=== PATIENT | female | born 1945 | race Caucasian/White ===

== ENCOUNTER 2017-07-20 08:16 | Outpatient (RCR) | payer MEDICARE, MEDICAID, SELFPAY ==
[2017-07-09 01:22] VITALS: BP 152/85; PULSE 69; RESP 18; TEMP 36; BMI 29.9
[2017-07-20 08:13] VITALS: BP 148/67; PULSE 58; RESP 18; TEMP 35.9; BMI 29.9
--- NOTE | 2017-07-20 08:58 | PCM.WC.PN ---
(1) Nonhealing nonsurgical wound Status: Acute Current Visit: Yes Code(s): T14.8XXA - Other injury of unspecified body region, initial encounter (2) Hypertension Status: Chronic Current Visit: Yes Code(s): I10 - Essential (primary) hypertension (3) Tobacco abuse disorder Status: Chronic Current Visit: Yes Code(s): Z72.0 - Tobacco use Type of Wound Date of Service: 07/20/17 Chief Complaint: Follow-up on open ulcer chest History of Wound: 72-year-old white female that approximately mid March scratched her chest with [place]lasses [place]. Has been treating her on her own has developed a huge ulcer. Was seen by her primary doctor and placed on 2 different antibiotics at 2 different times doxycycline and clindamycin was also treated with Lotrimin lotion. The ulcer just get worse and her doctor then referred her to the wound center. They will obtain cultures of the ulcer and start treatment. Progress of Wound: The wound today is healed patient will be discharged from the wound center. - Physical Exam Vital Signs Temp Pulse Resp BP 96.6 F L 58 L 18 148/67 H 07/20/17 08:13 07/20/17 08:13 07/20/17 08:13 07/20/17 08:13 General: Oriented x3, Cooperative, Well developed HEENT: Atraumatic, PERRLA Oral: Moist Mucosa Neck: Supple, No JVD Lungs: Clear to auscultation, Normal air movement Cardiovascular: Regular rate, Regular Rhythm Abdomen: Bowel Sounds Present, Soft, Non Tender, No Hepato-splenomegaly Extremities: No clubbing, No edema Skin: Ulcer/ Wound - Nonhealing ulcer chest lower sternum Wound Measurements and Assessment - Nurse 1 - General Ulcer Measurement Start: 07/20/17 08:12 Freq: Status: Active Protocol: Activity Type Activity Date Activity User E-Sign Co-Sign Detail Recorded Client Recorded Date Recorded By Document 07/20/17 08:13 DV [id number] 07/20/17 08:16 DV 07/20/17 08:13 Wound Center Nurse 1 [Ulcer Assessment Protocol: WC.WD.LOC] #1- LOWER STERNUM -Combined with other wound No -Current Size (cm) - Length 0 -Current Size (cm) - Width 0 -Current Size (cm) - Depth 0 -Total Square Cm 0 -Photo Taken Yes -Epithelialization Large 67-100% -Tunneling No -Undermining/Tunneling No -Circular Undermining No -Texture (Evie-wound Skin Appearance) No Abnormality Assessed -Moisture (Evie-wound Skin Appearance No Abnormality ) Assessed -Color (Evie-wound Skin Appearance) No Abnormality Assessed -Temperature (Evie-wound Skin No Abnormality Appearance) (Pt Warm) -Tenderness on Palpation (Evie-wound No Skin Appearance) -Foul Odor after Cleansing No WC - Nurse 2 - General Ulcer CM Notes Start: 07/20/17 08:12 Freq: Status: Active Protocol: Activity Type Activity Date Activity User E-Sign Co-Sign Detail Recorded Client Recorded Date Recorded By Document 07/20/17 08:30 MW [id number] 07/20/17 08:32 MW 07/20/17 08:30 Pain Scale: 0-10 Numeric [Pain] -Is Patient Pain Free? Yes Musculoskeletal: No Tenderness to Palpation of Joints or Extremities Lymphatic: No Cervical, Supraclavicular, or Inguinal Adenopathy Neurological: Cranial nerves II-XII grossly intact, Neuro grossly intact Psych/Mental Status: Normal Affect, Appropriate Debridement Note Post-Debridement Measurements/Treatment WC - Nurse 2 - General Ulcer CM Notes Start: 07/20/17 08:12 Freq: Status: Active Protocol: Activity Type Activity Date Activity User E-Sign Co-Sign Detail Recorded Client Recorded Date Recorded By Document 07/20/17 08:30 MW [id number] 07/20/17 08:32 MW 07/20/17 08:30 Pain Scale: 0-10 Numeric Is Patient Pain Free? Yes No debridement was completed today Assessment/Plan Active Problems Tobacco abuse disorder (Chronic) Nonhealing nonsurgical wound (Acute) Hypertension (Chronic) Assessment: Infected ulcer resolved. Nonhealing chest ulcer resolved. Hypertension. Tobacco abuser Plan: Discharge from the wound center follow-up as needed
--- NOTE | 2017-07-20 09:01 | PN.PCM_ITS ---
(1) Nonhealing nonsurgical wound Status: Acute Current Visit: Yes Code(s): T14.8XXA - Other injury of unspecified body region, initial encounter (2) Hypertension Status: Chronic Current Visit: Yes Code(s): I10 - Essential (primary) hypertension (3) Tobacco abuse disorder Status: Chronic Current Visit: Yes Code(s): Z72.0 - Tobacco use Type of Wound Date of Service: 07/20/17 Chief Complaint: Follow-up on open ulcer chest History of Wound: 72-year-old white female that approximately mid March scratched her chest with [place]. Has been treating her on her own has developed a huge ulcer. Was seen by her primary doctor and placed on 2 different antibiotics at 2 different times doxycycline and clindamycin was also treated with Lotrimin lotion. The ulcer just get worse and her doctor then referred her to the wound center. They will obtain cultures of the ulcer and start treatment. Progress of Wound: The wound today is healed patient will be discharged from the wound center. - Physical Exam Vital Signs Temp Pulse Resp BP 96.6 F L 58 L 18 148/67 H 07/20/17 08:13 07/20/17 08:13 07/20/17 08:13 07/20/17 08:13 General: Oriented x3, Cooperative, Well developed HEENT: Atraumatic, PERRLA Oral: Moist Mucosa Neck: Supple, No JVD Lungs: Clear to auscultation, Normal air movement Cardiovascular: Regular rate, Regular Rhythm Abdomen: Bowel Sounds Present, Soft, Non Tender, No Hepato-splenomegaly Extremities: No clubbing, No edema Skin: Ulcer/ Wound - Nonhealing ulcer chest lower sternum Wound Measurements and Assessment - Nurse 1 - General Ulcer Measurement Start: 07/20/17 08:12 Freq: Status: Active Protocol: Activity Type Activity Date Activity User E-Sign Co-Sign Detail Recorded Client Recorded Date Recorded By Document 07/20/17 08:13 DV [id number] 07/20/17 08:16 DV 07/20/17 08:13 Wound Center Nurse 1 [Ulcer Assessment Protocol: WC.WD.LOC] #1- LOWER STERNUM -Combined with other wound No -Current Size (cm) - Length 0 -Current Size (cm) - Width 0 -Current Size (cm) - Depth 0 -Total Square Cm 0 -Photo Taken Yes -Epithelialization Large 67-100% -Tunneling No -Undermining/Tunneling No -Circular Undermining No -Texture (Evie-wound Skin Appearance) No Abnormality Assessed -Moisture (Evie-wound Skin Appearance No Abnormality ) Assessed -Color (Evie-wound Skin Appearance) No Abnormality Assessed -Temperature (Evie-wound Skin No Abnormality Appearance) (Pt Warm) -Tenderness on Palpation (Evie-wound No Skin Appearance) -Foul Odor after Cleansing No WC - Nurse 2 - General Ulcer CM Notes Start: 07/20/17 08:12 Freq: Status: Active Protocol: Activity Type Activity Date Activity User E-Sign Co-Sign Detail Recorded Client Recorded Date Recorded By Document 07/20/17 08:30 MW [id number] 07/20/17 08:32 MW 07/20/17 08:30 Pain Scale: 0-10 Numeric [Pain] -Is Patient Pain Free? Yes Musculoskeletal: No Tenderness to Palpation of Joints or Extremities Lymphatic: No Cervical, Supraclavicular, or Inguinal Adenopathy Neurological: Cranial nerves II-XII grossly intact, Neuro grossly intact Psych/Mental Status: Normal Affect, Appropriate Debridement Note Post-Debridement Measurements/Treatment WC - Nurse 2 - General Ulcer CM Notes Start: 07/20/17 08:12 Freq: Status: Active Protocol: Activity Type Activity Date Activity User E-Sign Co-Sign Detail Recorded Client Recorded Date Recorded By Document 07/20/17 08:30 MW [id number] 07/20/17 08:32 MW 07/20/17 08:30 Pain Scale: 0-10 Numeric Is Patient Pain Free? Yes No debridement was completed today Assessment/Plan Active Problems Tobacco abuse disorder (Chronic) Nonhealing nonsurgical wound (Acute) Hypertension (Chronic) Assessment: Infected ulcer resolved. Nonhealing chest ulcer resolved. Hypertension. Tobacco abuser Plan: Discharge from the wound center follow-up as needed
== END 2017-08-08 23:59 ==
LOC: WC 08:16
PROVIDERS: Family Provider Family Medicine; PCP Family Medicine; Visit Provider Nurse Practitioner
DX: Z09 Encounter for follow-up examination after completed treatment for conditions other than malignant neoplasm (principal); Z72.0 Tobacco use
CPT/HCPCS: 99212; G0463

== ENCOUNTER 2017-08-25 14:20 | Emergency (ER) | payer MEDICARE, MEDICAID, SELFPAY ==
[2017-08-25] VITALS (7 sets, daily range): BP systolic 171–216; BP diastolic 79–174; PULSE 61–79; RESP 14–22; TEMP 36.5; O2SAT 96–98; BMI 30.9
--- NOTE | 2017-08-25 14:26 | EKG12_ITS ---
Test Reason : CVA Blood Pressure : / mmHG Vent. Rate : 070 BPM Atrial Rate : 070 BPM P-R Int : 132 ms QRS Dur : 160 ms QT Int : 466 ms P-R-T Axes : 051 208 -08 degrees QTc Int : 503 ms Sinus rhythm with Premature atrial complexes Left bundle branch block Abnormal ECG Confirmed by INNA HANNAH ([id number]), editor in chief newspaper DENNY DECKER ([id number]) on 08/30/2017 2:42:10 PM Referred By: Confirmed By:INNA HANNAH
--- NOTE | 2017-08-25 14:26 | CT_ITS ---
STUDY: CTA NECK WITH CONTRAST REASON FOR EXAM: Female, 72 years old. RT SIDED WEAKNESS, APHASIC, PREV CVA 20 YRS AGO, AVM MALFORMATION REPAIR, HX-SZ,HTN, CABG, EMPHYSEMA RADIATION DOSAGE (If Supplied By Facility): CTDIvol = ( 23.33 ) mGy, DLP = ( 781.56 ) mGycm TECHNIQUE: CT angiography with multi-detector data acquisition was performed from the aortic arch to the skull base following intravenous administration of 100 ml of Isovue 370 contrast. MIP images were reconstructed from the axial data set. Post-processing of the angiographic images was performed, with multiplanar reformation and 3D reconstruction. COMPARISON: CT of the same day. FINDINGS: Multiple median sternotomy wires are noted consistent for cardiac surgery. AORTIC ARCH: There is atherosclerotic calcific plaque formation of the aortic arch and great vessels arising from the aortic arch, without a hemodynamically significant stenosis. There is a normal origin of the brachiocephalic, left common carotid, and left subclavian arteries. Normal origins of the brachiocephalic, left common carotid, and left subclavian arteries. RIGHT CAROTID ARTERIES: Normal right common carotid artery (CCA). Normal right common carotid bulb. There is mild atherosclerotic plaque formation of the origin of the right internal carotid artery with less than 50% cross sectional diameter stenosis. Normal visualized cervical portion of the right internal carotid artery. Normal origin of the right external carotid artery (ECA). LEFT CAROTID ARTERIES: Normal left common carotid artery (CCA). Normal left common carotid bulb. 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 Normal visualized cervical portion of the left internal carotid artery. Normal origin of the left external carotid artery (ECA). VERTEBRAL ARTERIES: There is enhancement within the bilateral vertebral arteries with a small right vertebral artery, and a dominant left vertebral artery. The most distal portion of the right vertebral artery isn't visualized and may represent severe stenosis or occlusion. 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 There is mild atherosclerotic plaque formation of the origin of the right internal carotid artery with less than 50% cross sectional diameter stenosis. The most distal portion of the right vertebral artery isn't visualized and may represent severe stenosis or occlusion. Electronically Signed: Sid Betancourt MD at 16:30 EST , Service support ,
--- NOTE | 2017-08-25 14:26 | CT_ITS ---
STUDY: CTA OF THE BRAIN REASON FOR EXAM: Female, 72 years old. RT SIDED WEAKNESS, APHASIC, PREV CVA 20 YRS AGO, AVM MALFORMATION REPAIR, HX-SZ,HTN, CABG, EMPHYSEMA RADIATION DOSAGE (If Supplied By Facility): CTDIvol = ( 23.33 ) mGy, DLP = ( 781.56 ) mGycm TECHNIQUE: CT angiography was performed with a multi-detector CT scanner. Data acquisition was obtained from the skull base through the vertex following intravenous administration of 100 ml of Isovue 370. MIP images were reconstructed from the axial data set. Post-processing of the angiographic images was performed, with multiplanar reformation and 3D reconstruction. Individualized dose optimization techniques were used for this CT. COMPARISON: CT Brain Aug 25 2017 2:25pm FINDINGS: Normal bilateral petrous carotid arteries. There is calcified plaque formation of the right cavernous carotid artery, without a cross-sectional luminal stenosis. There is calcified plaque formation of the left cavernous carotid artery, and occlusion of the left ICA. The left cavernous carotid artery is filling via the [place] of [place]. Normal right A1 segments of the anterior cerebral artery. Normal left A1 segments of the anterior cerebral artery. Normal intact anterior communicating artery (ACOM). Normal bilateral A2 segments of the anterior cerebral arteries. Normal right M1 and M2 segments of the middle cerebral arteries, with a normal M1 bifurcation. Normal left M1 and M2 segments of the middle cerebral arteries, with a normal M1 bifurcation. There is non-visualization of the right posterior communicating artery (PCOM). There is non-visualization of the left posterior communicating artery (PCOM). Normal bilateral vertebral arteries. Normal basilar artery with a normal basilar bifurcation. The visualized bilateral superior cerebellar (SCA) arteries are normal. Normal bilateral P1, P2 and visualized P3 segments of the posterior cerebral arteries. There is a right occipital AND left frontal craniotomy/craniectomy. Old right cerebellar encephalomalacia. There is no demonstrated aneurysm of the [place] of [place]. There is no demonstrated abnormality of the visualized brain. CT/CTA Head W/WO Contrast IMPRESSION: There is calcified plaque formation of the left cavernous carotid artery, and occlusion of the left ICA. The left cavernous carotid artery is filling via the [place]. N.B. : The above information has been verbally conveyed by Sid Betancourt MD to Dr. Gary Prieto, Referring Physician, on 08/25/2017 16:36:27 (ET). Electronically Signed: Sid Betancourt MD at 16:28 EST , Service support , N.B. : The above information has been verbally conveyed by Sid Betancourt MD to Dr. Gary Prieto, Referring Physician, on 08/25/2017 16:36:27 (ET).
--- NOTE | 2017-08-25 14:26 | RAD_ITS ---
STUDY: X-RAY CHEST REASON FOR EXAM: Female, 72 years old. Stroke symptoms TECHNIQUE: Single AP portable view of the chest. COMPARISON: None. FINDINGS: The lungs are clear and expanded. There is no demonstrated pleural abnormality. There is mild to moderate cardiac enlargement. Sternotomy wires are present midline. Normal mediastinum and good. Normal visualized pulmonary arteries. There is atherosclerotic calcification of the aortic arch with tortuosity. There are diffuse degenerative changes of the visualized thoracic spine. Normal visualized ribs, clavicles, and shoulders. There is no demonstrated abnormality of the visualized soft tissue structures of the upper abdomen. RAD/Chest 1 View IMPRESSION: Degenerative changes, as described above. No demonstrated acute cardiopulmonary process. Electronically Signed: Yolande Oconnor MD at 15:48 EST Tel , Service support ,
--- NOTE | 2017-08-25 14:26 | CT_ITS ---
STUDY: CT BRAIN WITHOUT CONTRAST REASON FOR EXAM: Female, 72 years old. Stroke alert. Right-sided weakness RADIATION DOSAGE (If Supplied By Facility): CTDIvol = ( 44.99 ) mGy, DLP = ( 745.49 ) mGycm TECHNIQUE: Transaxial CT imaging of the brain was performed without administration of intravenous contrast material. Individualized dose optimization techniques were used for this CT. COMPARISON: None. FINDINGS: Low-attenuation in the left frontal lobe noted consistent with a late acute and early subacute infarct. No associated hemorrhage or shift of midline structures. Chronic left basal ganglia lacunar infarct. Scattered foci of low-attenuation in the periventricular and subcortical white matter noted which are nonspecific in imaging appearance however likely related with chronic small vessel disease. Right-sided occipital craniectomy changes with large area of encephalomalacia and gliosis in the right cerebellum. Dense streak artifact in the region seen from metallic clips which limits assessment. There is clipping in the region of the left paraclinoid also seen. Bilateral basal ganglia mineralization. Low-attenuation area in the left head of the caudate nucleus also seen likely subacute or chronic infarct. Chronic right superior parietal lobe infarct also seen. Bilateral basal ganglia mineralization. Wallerian degeneration of the left cerebral peduncle seen. Left-sided frontal craniotomy changes are also seen. IMPRESSION: Subtle low-attenuation in the left frontal lobe with loss of mancini-white differentiation suggestive of a late acute/early subacute infarct. No evidence for acute intracranial hemorrhage shift of midline structures. Please consider CTA examination of the head for better assessment. Chronic bilateral watershed infarcts Status post right-sided occipital craniectomy N.B. : The above information has been verbally conveyed by Kareem Murray to Gary Prieto, Referring Physician, on 08/25/2017 14:47:14 (ET). Electronically Signed: Kareem Murray, at 14:48 EST Tel , Service support , N.B. : The above information has been verbally conveyed by Kareem Murray to Gary Prieto, Referring Physician, on 08/25/2017 14:47:14 (ET). CT/Brain/Head without Contrast
--- NOTE | 2017-08-25 14:31 | ED.VISSUMM ---
- ER Visit Summary Date of Service: 08/25/17 Chief Complaint: Right-sided weakness History of Present Illness: The patient is a 72 F with prehospital concern for acute stroke. New right-sided weakness on top of chronic mild right-sided weakness, and difficulty talking which is new. Patient lives with her nephew in an apartment above the daughter's business. They were at the business and heard her fall at 1345. The daughter's went to check on her, and noticed that something was wrong; the exact time of onset is unknown. Daughter gave her aspirin immediately and called EMS. She states she is usually very sharp and ambulatory on her own with mild right sided hemiparesis as a result of an AVM resection remotely. No recent illnesses. History is very limited secondary to the patient's aphasia. Physical Examination: Blood pressure 171/79, otherwise vital signs are normal. Her total NIH SS is 16; she has significant weakness of the right upper extremity, drift of the right lower extremity, she is unable to gaze all the way to the right, she has a dense lower right facial droop, and a significant expressive aphasia with dysarthria. Her left side is working with normal strength, she follows commands well, cannot answer age or month. She is keenly alert. Heart is regular, lungs are clear, abdomen benign. Test Results: Stat head CT shows no hemorrhage, but shows signs of early left frontal infarct. Labs show stable blood counts and creatinine of 0.8. EKG is sinus with occasional PACs and a nonspecific interventricular conduction delay with a right axis. CT angiography shows total occlusion of the left internal carotid, some blockage in the left MCA, and possible occlusion of the right vertebral artery. There is a trickle of blood flow in the left MCA due to collateral flow from the right via the ACOM and PCOM. Emergency Department Course and Treatment: After discussion with Dr. Lara, he recommends emergent transfer to specialty Center for evaluation for neuro interventional management. She is not an IV TPA candidate, mostly because the timing is unknown, it was deemed that she was last seen normal last night. Nobody saw her this morning until they heard her fall at 1345 today. Her blood pressure fluctuated from 170s to 210s; neurology advised avoiding treating this unless it gets above 220 systolic. Patient remained clinically stable. Accepted at [facility] by Dr. Samuels. Not able to send her by air due to weather, so they are sending a mobile ground MICU. Treatment Plan: Transfer [facility] Disposition: Transfer Impression: Acute ischemic stroke left MCA This note was generated with [employer] dictation software. It may contain incorrect words, spelling, and punctuation that were not noted in review of the chart prior to signing ED Disposition - Plan for ED Patient: Disposition: [facility] - Main Chief Complaint: Neuro S/Sx Referrals: Conor Aparicio MD [Primary Care Provider] -
--- NOTE | 2017-08-25 14:35 | ED.DCSUM_ITS ---
- ER Visit Summary Date of Service: 08/25/17 Chief Complaint: Right-sided weakness History of Present Illness: The patient is a 72 F with prehospital concern for acute stroke. New right-sided weakness on top of chronic mild right-sided weakness, and difficulty talking which is new. Patient lives with her nephew in an apartment above the daughter's business. They were at the business and heard her fall at 1345. The daughter's went to check on her, and noticed that something was wrong; the exact time of onset is unknown. Daughter gave her aspirin immediately and called EMS. She states she is usually very sharp and ambulatory on her own with mild right sided hemiparesis as a result of an AVM resection remotely. No recent illnesses. History is very limited secondary to the patient's aphasia. Physical Examination: Blood pressure 171/79, otherwise vital signs are normal. Her total NIH SS is 16; she has significant weakness of the right upper extremity, drift of the right lower extremity, she is unable to gaze all the way to the right, she has a dense lower right facial droop, and a significant expressive aphasia with dysarthria. Her left side is working with normal strength, she follows commands well, cannot answer age or month. She is keenly alert. Heart is regular, lungs are clear, abdomen benign. Test Results: Stat head CT shows no hemorrhage, but shows signs of early left frontal infarct. Labs show stable blood counts and creatinine of 0.8. EKG is sinus with occasional PACs and a nonspecific interventricular conduction delay with a right axis. CT angiography shows total occlusion of the left internal carotid, some blockage in the left MCA, and possible occlusion of the right vertebral artery. There is a trickle of blood flow in the left MCA due to collateral flow from the right via the ACOM and PCOM. Emergency Department Course and Treatment: After discussion with Dr. Lara , he recommends emergent transfer to specialty Center for evaluation for neuro interventional management. She is not an IV TPA candidate, mostly because the timing is unknown, it was deemed that she was last seen normal last night. Nobody saw her this morning until they heard her fall at 1345 today. Her blood pressure fluctuated from 170s to 210s; neurology advised avoiding treating this unless it gets above 220 systolic. Patient remained clinically stable. Accepted at [facility] by Dr. Samuels. Not able to send her by air due to weather, so they are sending a mobile ground MICU. Treatment Plan: Transfer [facility] Disposition: Transfer Impression: Acute ischemic stroke left MCA This note was generated with [employer] dictation software. It may contain incorrect words, spelling, and punctuation that were not noted in review of the chart prior to signing ED Disposition - Plan for ED Patient: Disposition: [facility] - Main Chief Complaint: Neuro S/Sx Referrals: Conor Aparicio MD [Primary Care Provider] -
[2017-08-25 14:52] LABS: Absolute Neutrophil Count 9.6 X10^3/uL (2.0-7.7); Basophil# 0.01 X10^3/uL; Basophil% 0.1 % (0-1); Eosinophil# 0.01 X10^3/uL; Eosinophils% 0.1 % (0-5); Hematocrit 46.8 % (37-47); Hemoglobin 14.5 g/dl (12.0-15.0); Lymphocyte % 8.3 % (19-41); Mean Corpuscular Volume 93.6 fL (81-99); Mean Platelet Vol. 11.1 fl (6.2-12.0); Monocyte# 0.41 X10^3/uL; Monocyte% 3.8 % (0-10); Neutrophil # 9.55 X10^3/uL (2.7-7.7); Neutrophil % 87.6 % (47-70); Platelet Count 163 K/mm3 (150-450); RBC Distribution Width CV 13.7 % (11.6-14.6); RBC Distribution Width SD 46.7 fl (35.1-43.9); White Blood Count 10.9 K/mm3 (4.4-11.0)
--- NOTE | 2017-08-25 14:54 | ED.RN ---
neurologist paged for dr monaco
[2017-08-25 14:57] LABS: POSITIVE COUNT NO; POSITIVE DIFFERENTIAL NO; POSITIVE MORPHOLOGY NO
[2017-08-25 15:04] LABS: International Normalized Ratio 1.1; Partial Thromboplast Time 32.3 Seconds (24.1-36.2); Prothrombin Time (Protime)PT. 13.4 SECONDS (11.7-14.9)
[2017-08-25 15:16] LABS: Anion Gap 8 (5-15); BUN 20 mg/dL (7-18); BUN/Creat Ratio 23.9 RATIO (10-20); Calcium,Total 9.4 mg/dL (8.5-10.1); Chloride 108 mmol/L (98-107); Creatinine, Serum 0.84 mg/dL (0.55-1.02); EST Glomerular Filtration Rate 71 mL/min (>60); Est Glom Filt Rate - Afr Amer 86 mL/min (>60); Estimated Creatinine Clearance 51.51 ml/min; Glucose 126 mg/dL (74-106); Potassium 4.2 mmol/L (3.5-5.1); Sodium Level 142 mmol/L (136-145)
--- NOTE | 2017-08-25 15:24 | ED.RN ---
pt had episode of not being able to clear throat and had choking fit. Multiple personnel at bedside, pt able to clear secretions eventually. medication bottles checked with list, sent home with niece to place back in pts house.
--- NOTE | 2017-08-25 16:52 | ED.RN ---
Report called to [facility] at [facility]. Pt experienced coughing/choking episode. PT cleared herself. Did not fall below 92% RA.
--- NOTE | 2017-08-25 18:30 | ED.RN ---
Received call from SHILPA Mitchell RN, answered health history questions.
[2017-08-31 08:31] LABS: Bedside Glucose 125 mg/dL (70-110)
== END 2017-08-25 17:05 | disposition short-term general hospital (02) ==
PROVIDERS: Emergency Provider Emergency Medicine; Family Provider Family Medicine; PCP Family Medicine
DX: I63.412 Cerebral infarction due to embolism of left middle cerebral artery (principal); R47.01 Aphasia; R47.1 Dysarthria and anarthria; R29.810 Facial weakness; R47.81 Slurred speech; I69.351 Hemiplegia and hemiparesis following cerebral infarction affecting right dominant side; Z79.82 Long term (current) use of aspirin; Z79.899 Other long term (current) drug therapy
CPT/HCPCS: 70450; 70496; 70498; 71045; 80048; 82962; 84484; 85025; 85610; 85730; 93005; 96360; 96361; 99285; J7030; J7040; Q9967

== ENCOUNTER 2017-09-05 13:09 | Inpatient (IN) | payer MEDICARE, MEDICAID, SELFPAY ==
[2017-09-05] VITALS (7 sets, daily range): BP systolic 117–118; BP diastolic 62; PULSE 53–62; RESP 17–24; TEMP 36.4–37.1; O2SAT 94–96; BMI 30.4; BMI 30.5
--- NOTE | 2017-09-05 16:21 | PCM.CONS.GEN ---
<Chris Wills - Last Filed: 09/05/17 17:24> Problem List (1) Atrial fibrillation Status: Chronic (2) Ischemic stroke Status: Chronic (3) COPD (chronic obstructive pulmonary disease) Status: Chronic (4) Asthma Status: Chronic (5) CHF (congestive heart failure) Status: Chronic Qualifiers: Heart failure type: systolic (6) Debility Status: Chronic (7) Dysphagia Status: Chronic (8) Hypertension Status: Chronic (9) Nicotine abuse Status: Chronic Reason for Consult Date of Consultation: 09/05/17 Reason for Consultation: Medical management History of Present Illness: The patient is a 72 year old F who presents to [facility] rehab unit after being treated at [facility] for ischemic stroke with strokes found in the left MCA and LICA. She initially presented to [facility] ED after being found down after a fall in her apartment. She was transferred to [facility] as she had a prior history of stroke, AVM, surgical clips. She was admitted to [facility] and treated medically, no TPA, no surgery. During her stay was placed in the ICU and had COPD exacerbation secondary to acute influenza, heart failure with reduced ejection fraction, she developed significant dysphagia and temporarily had a feeding tube. She has residual stroke deficits including aphasia, right-sided upper and lower extremity weakness, right-sided blurred vision, and significant dysphagia. She remains on a soft mechanical and thin liquid diet. She has a hx of AF (new Dx), Stroke, Dysphagia, Asthma, Emphysema, Prediabetes (A1C 5.8), HTN, CHF, Smoking (up to this admission), CAD. She is now on O2 and never had O2 prior to this. She was living alone prior to stroke and her goal is to return home alone. Her daughter is here helping with hx as she is unable to express much more than just yes/no answers to questions. [] Past Medical History Past Medical History (Chronic Problems): Chronic Problems Nicotine abuse (Chronic) COPD (chronic obstructive pulmonary disease) (Chronic) Asthma (Chronic) CHF (congestive heart failure) (Chronic) Debility (Chronic) Ischemic stroke (Chronic) Atrial fibrillation (Chronic) Dysphagia (Chronic) Hypertension (Chronic) Tobacco abuse disorder (Chronic) Allergies furosemide [From Lasix] Allergy (Verified 05/10/16 08:50) Hives Penicillins Allergy (Verified 05/10/16 08:54) Hives Home Medications: Ambulatory Orders Medication Instructions Recorded Aspirin 81 mg PO DAILY 05/18/17 Amiodarone HCl [Pacerone] 400 mg PO DAILY 09/05/17 Atorvastatin Calcium [Lipitor] 40 mg PO QHS 09/05/17 Budesonide Aerosol [Pulmicort 0.5 mg INHALATION BID 09/05/17 Aerosol] Carvedilol [Coreg] 6.25 mg PO BIDAC 09/05/17 HydrALAZINE [Apresoline] 75 mg PO Q8H 09/05/17 Ipratropium/Albuterol Sulfate 3 ml INHALATION Q4HWA.RT 09/05/17 [Duoneb] Lisinopril [Zestril] 40 mg PO DAILY 09/05/17 Nifedipine [Nifedipine ER] 30 mg PO DAILY 09/05/17 Surgical History: coronary bypass surgery, total knee arthroplasty - BL Psychiatric History: No pertinent psych hx 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 Lives: Alone Smoking Status: Current every day smoker Tobacco Use: Cigarettes Alcohol: None Drugs: None - *Family History Maternal History Items: No pertinent history Paternal History Items: Heart Disease Review of Systems Constitutional: Denies: Chills, Fever, Weight Change HEENT: Denies: Head Aches, Sinus Congestion, Sinus Drainage Cardiovascular: Denies: Chest Pain, Palpitations Respiratory: Denies: Cough, Shortness of breath at rest, Sputum production Gastrointestinal: Denies: Abdominal Pain, Nausea, Vomiting Genitourinary: Denies: Dysuria Musculoskeletal: Denies: Joint Pain, Joint Tenderness Skin: Denies: Rash, Wounds Neurological: Reports: - - dysphagia, right sided weakness, right eye blurred vision, right arm numbness. Denies: Focal weakness, Numbness, Tingling Psychiatric: Denies: Anxiety, Depression, Homicidal Ideations, Suicidal Ideations Hematologic/ Lymphatic: Denies: Easy Bruising, Easy Bleeding - Physical Exam General: Alert, Oriented x3, Cooperative, - - aphasia HEENT: Atraumatic, PERRLA, EOMI, Normocephalic Neck: Supple, No JVD, Negative Carotid Bruits Lungs: Clear to auscultation, Diminished Cardiovascular: Regular rate, No murmurs Abdomen: Bowel Sounds Present, Soft, Non Tender Extremities: No edema, Capillary Refill Less than 3 Seconds Skin: No rashes, No breakdown Musculoskeletal: No Tenderness to Palpation of Joints or Extremities Neurological: Cranial nerves II-XII grossly intact Psych/Mental Status: Normal Affect, Appropriate Vital Signs Temp Pulse Resp BP Pulse Ox 97.5 F L 55 L 17 117/62 96 09/05/17 13:25 09/05/17 13:25 09/05/17 13:25 09/05/17 13:25 09/05/17 13:25 Oxygen Flow Rate 2 Oxygen Delivery Method Nasal Cannula Weight: 78.018 kg Body Mass Index (BMI) 30.4 Finger Stick Blood Glucose 125 Assessment/Plan 1. Debility 2/2 Acute Ischemic strokes L MCA LICA - prior strokes, AVM, clips - cannot have MRI. felt to be 2/2 new onset AF. PTOTST. Right sided deficits and dysphagia, aphasia. Tx as per rehab team. 2. PAF - to start OAC (eliquis) when cleared per neurology. Continue Amio and taper according to direction from [facility]. 3. CAD s/p prior CABGx3 - asa, statin, coreg, eunice, procardia, hydralazine 4. Prediabetes - sliding scale insulin. A1C 5.8, given her CAD and CVA she should be aggressively treated and would likely benefit from a newer agent with indications for the prevention of Cardiac events and stroke such as victoza or an appropriate SGLT2I. 5. Asthma/Emphysema with chronic hypoxic respiratory failure - IS, wean as tolerated. Aerosols PRN. Recent COPD exacerbation and Flu treated with 5 days steroids and 5 days tamiflu 6. HTN - continue current therapy. 7. Dysphagia - mechanical soft, thin liquids. 8. Right ankle sprain - please obtain and apply her brace 9. Hx Systolic CHF and cardiomyopathy unspecified - continue current meds, avoid overhydration. Monitor for fluid overload. 10. Nicotine abuse - was smoking up to this stroke admission. Patch if desired. Cessation encouraged. Thank you for the opportunity to participate in the care of this patient. This patient was seen by Chris Wills PA-C under the supervision of Doctor Jung. Pt is DNRCCA <Paintsjacobo,Newcomb - Last Filed: 09/05/17 20:43> Reason for Consult History of Present Illness: The patient is a 72 year old F [] Past Medical History Allergies furosemide [From Lasix] Allergy (Verified 05/10/16 08:50) Hives Penicillins Allergy (Verified 05/10/16 08:54) Hives - Physical Exam Neurological: Cranial nerves II-XII grossly intact, Facial Droop Vital Signs Temp Pulse Resp BP Pulse Ox 97.5 F L 55 L 17 117/62 96 09/05/17 13:25 09/05/17 17:14 09/05/17 13:25 09/05/17 17:14 09/05/17 13:25 Oxygen Flow Rate 2 Oxygen Delivery Method Nasal Cannula Weight: 78.018 kg Body Mass Index (BMI) 30.4 Finger Stick Blood Glucose 125 Intake and Output for Last 24 Hours 09/03/17 09/04/17 09/05/17 23:59 23:59 23:59 Intake Total 60 Balance 60 Assessment/Plan This patient was seen in conjunction with ELAINE Martin. I have independently interviewed and examined the patient and reviewed pertinent historical, laboratory, and other data. Please refer to ELAINE Martin note for his patient's presentation, findings, and recommendations. I have reviewed and his note and concur with his documentation. Patient was seen and examined. Reviewed notes from [facility]. Meds reviewed. Patient has no new complains now. She feels well. Physical Exam: Gen: Obese,aphasic, not pale, not jaundiced CVS:HS I +II, regular, no murmurs RESP: Diminished at lung bases GI: Full, firm, nontender, no palpable organs EXT:No edema FORENSIC PATHOLOGIST: Alert, oriented, aphasic, dense right hemiplegia, right facial droop. ASSESSMENT: 1. Left MCA infarct secondary to cardioembolic, CHADSVASC 6, on aspirin, statin, not yet on OAC 2. New onset 3. HTN 4. CAD s/p CABG 5. HFrEF, possible ischemic 6. Dysphagia 7. Incidental finding of liver cirrhosis 8. COPD 9. Incidental pulmonary nodule Plan: Meds per discharge medication PT/OT/Speech therapy Code Visit Inpatient E&M: 57010 Init Hosp L3
--- NOTE | 2017-09-05 16:39 | CON.PCM_ITS ---
Addendum entered and electronically signed by ELAINE Martin 09/05/17 17:24: Code Visit This patient was seen by Chris Wills PA-C under the supervision of Doctor Fontaine, corrected from Dr. Jung. . Original Note: <Chris Wills - Last Filed: 09/05/17 17:24> Problem List (1) Atrial fibrillation Status: Chronic (2) Ischemic stroke Status: Chronic (3) COPD (chronic obstructive pulmonary disease) Status: Chronic (4) Asthma Status: Chronic (5) CHF (congestive heart failure) Status: Chronic Qualifiers: Heart failure type: systolic (6) Debility Status: Chronic (7) Dysphagia Status: Chronic (8) Hypertension Status: Chronic (9) Nicotine abuse Status: Chronic Reason for Consult Date of Consultation: 09/05/17 Reason for Consultation: Medical management History of Present Illness: The patient is a 72 year old F who presents to [facility] rehab unit after being treated at [facility] for ischemic stroke with strokes found in the left MCA and LICA. She initially presented to [facility] ED after being found down after a fall in her apartment. She was transferred to [facility] as she had a prior history of stroke, AVM, surgical clips. She was admitted to [facility] and treated medically, no TPA, no surgery. During her stay was placed in the ICU and had COPD exacerbation secondary to acute influenza, heart failure with reduced ejection fraction, she developed significant dysphagia and temporarily had a feeding tube. She has residual stroke deficits including aphasia, right-sided upper and lower extremity weakness, right-sided blurred vision, and significant dysphagia. She remains on a soft mechanical and thin liquid diet. She has a hx of AF (new Dx), Stroke, Dysphagia, Asthma, Emphysema, Prediabetes (A1C 5.8), HTN, CHF, Smoking (up to this admission), CAD. She is now on O2 and never had O2 prior to this. She was living alone prior to stroke and her goal is to return home alone. Her daughter is here helping with hx as she is unable to express much more than just yes/no answers to questions. [] Past Medical History Past Medical History (Chronic Problems): Chronic Problems Nicotine abuse (Chronic) COPD (chronic obstructive pulmonary disease) (Chronic) Asthma (Chronic) CHF (congestive heart failure) (Chronic) Debility (Chronic) Ischemic stroke (Chronic) Atrial fibrillation (Chronic) Dysphagia (Chronic) Hypertension (Chronic) Tobacco abuse disorder (Chronic) Allergies furosemide [From Lasix] Allergy (Verified 05/10/16 08:50) Hives Penicillins Allergy (Verified 05/10/16 08:54) Hives Home Medications: Ambulatory Orders Medication Instructions Recorded Aspirin 81 mg PO DAILY 05/18/17 Amiodarone HCl [Pacerone] 400 mg PO DAILY 09/05/17 Atorvastatin Calcium [Lipitor] 40 mg PO QHS 09/05/17 Budesonide Aerosol [Pulmicort 0.5 mg INHALATION BID 09/05/17 Aerosol] Carvedilol [Coreg] 6.25 mg PO BIDAC 09/05/17 HydrALAZINE [Apresoline] 75 mg PO Q8H 09/05/17 Ipratropium/Albuterol Sulfate 3 ml INHALATION Q4HWA.RT 09/05/17 [Duoneb] Lisinopril [Zestril] 40 mg PO DAILY 09/05/17 Nifedipine [Nifedipine ER] 30 mg PO DAILY 09/05/17 Surgical History: coronary bypass surgery, total knee arthroplasty - BL Psychiatric History: No pertinent psych hx 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 Lives: Alone Smoking Status: Current every day smoker Tobacco Use: Cigarettes Alcohol: None Drugs: None - *Family History Maternal History Items: No pertinent history Paternal History Items: Heart Disease Review of Systems Constitutional: Denies: Chills, Fever, Weight Change HEENT: Denies: Head Aches, Sinus Congestion, Sinus Drainage Cardiovascular: Denies: Chest Pain, Palpitations Respiratory: Denies: Cough, Shortness of breath at rest, Sputum production Gastrointestinal: Denies: Abdominal Pain, Nausea, Vomiting Genitourinary: Denies: Dysuria Musculoskeletal: Denies: Joint Pain, Joint Tenderness Skin: Denies: Rash, Wounds Neurological: Reports: - - dysphagia, right sided weakness, right eye blurred vision, right arm numbness. Denies: Focal weakness, Numbness, Tingling Psychiatric: Denies: Anxiety, Depression, Homicidal Ideations, Suicidal Ideations Hematologic/ Lymphatic: Denies: Easy Bruising, Easy Bleeding - Physical Exam General: Alert, Oriented x3, Cooperative, - - aphasia HEENT: Atraumatic, PERRLA, EOMI, Normocephalic Neck: Supple, No JVD, Negative Carotid Bruits Lungs: Clear to auscultation, Diminished Cardiovascular: Regular rate, No murmurs Abdomen: Bowel Sounds Present, Soft, Non Tender Extremities: No edema, Capillary Refill Less than 3 Seconds Skin: No rashes, No breakdown Musculoskeletal: No Tenderness to Palpation of Joints or Extremities Neurological: Cranial nerves II-XII grossly intact Psych/Mental Status: Normal Affect, Appropriate Vital Signs Temp Pulse Resp BP Pulse Ox 97.5 F L 55 L 17 117/62 96 09/05/17 13:25 09/05/17 13:25 09/05/17 13:25 09/05/17 13:25 09/05/17 13:25 Oxygen Flow Rate 2 Oxygen Delivery Method Nasal Cannula Weight: 78.018 kg Body Mass Index (BMI) 30.4 Finger Stick Blood Glucose 125 Assessment/Plan 1. Debility 2/2 Acute Ischemic strokes L MCA LICA - prior strokes, AVM, clips - cannot have MRI. felt to be 2/2 new onset AF. PTOTST. Right sided deficits and dysphagia, aphasia. Tx as per rehab team. 2. PAF - to start OAC (eliquis) when cleared per neurology. Continue Amio and taper according to direction from [facility]. 3. CAD s/p prior CABGx3 - asa, statin, coreg, eunice, procardia, hydralazine 4. Prediabetes - sliding scale insulin. A1C 5.8, given her CAD and CVA she should be aggressively treated and would likely benefit from a newer agent with indications for the prevention of Cardiac events and stroke such as victoza or an appropriate SGLT2I. 5. Asthma/Emphysema with chronic hypoxic respiratory failure - IS, wean as tolerated. Aerosols PRN. Recent COPD exacerbation and Flu treated with 5 days steroids and 5 days tamiflu 6. HTN - continue current therapy. 7. Dysphagia - mechanical soft, thin liquids. 8. Right ankle sprain - please obtain and apply her brace 9. Hx Systolic CHF and cardiomyopathy unspecified - continue current meds, avoid overhydration. Monitor for fluid overload. 10. Nicotine abuse - was smoking up to this stroke admission. Patch if desired. Cessation encouraged. Thank you for the opportunity to participate in the care of this patient. This patient was seen by Chris Wills PA-C under the supervision of Doctor Jung. Pt is DNRCCA <Luh Fontaine - Last Filed: 09/05/17 20:43> Reason for Consult History of Present Illness: The patient is a 72 year old F [] Past Medical History Allergies furosemide [From Lasix] Allergy (Verified 05/10/16 08:50) Hives Penicillins Allergy (Verified 05/10/16 08:54) Hives - Physical Exam Neurological: Cranial nerves II-XII grossly intact, Facial Droop Vital Signs Temp Pulse Resp BP Pulse Ox 97.5 F L 55 L 17 117/62 96 09/05/17 13:25 09/05/17 17:14 09/05/17 13:25 09/05/17 17:14 09/05/17 13:25 Oxygen Flow Rate 2 Oxygen Delivery Method Nasal Cannula Weight: 78.018 kg Body Mass Index (BMI) 30.4 Finger Stick Blood Glucose 125 Intake and Output for Last 24 Hours 09/03/17 09/04/17 09/05/17 23:59 23:59 23:59 Intake Total 60 / 60 Balance 60 / 60 Assessment/Plan This patient was seen in conjunction with ELAINE Martin. I have independently interviewed and examined the patient and reviewed pertinent historical, laboratory, and other data. Please refer to ELAINE Martin note for his patient's presentation, findings, and recommendations. I have reviewed and his note and concur with his documentation. Patient was seen and examined. Reviewed notes from [facility]. Meds reviewed. Patient has no new complains now. She feels well. Physical Exam: Gen: Obese,aphasic, not pale, not jaundiced CVS:HS I +II, regular, no murmurs RESP: Diminished at lung bases GI: Full, firm, nontender, no palpable organs EXT:No edema COMMERCIAL LOAN REVIEWER: Alert, oriented, aphasic, dense right hemiplegia, right facial droop. ASSESSMENT: 1. Left MCA infarct secondary to cardioembolic, CHADSVASC 6, on aspirin, statin , not yet on OAC 2. New onset 3. HTN 4. CAD s/p CABG 5. HFrEF, possible ischemic 6. Dysphagia 7. Incidental finding of liver cirrhosis 8. COPD 9. Incidental pulmonary nodule Plan: Meds per discharge medication PT/OT/Speech therapy Code Visit Inpatient E&M: 13205 Init Hosp L3
[2017-09-05] MEDS: Carvedilol 6.25 MG Tablet PO (17:14)
[2017-09-05] MEDS: Ipratropium/Albuterol Sulfate 3 ML AMPUL.NEB INHALATION (20:05)
[2017-09-05] MEDS: Budesonide Respules 0.5 MG/2 ML AMPUL.NEB. INHALATION (20:05)
[2017-09-05] MEDS: Atorvastatin Calcium 40 MG Tablet PO (21:15)
[2017-09-05] MEDS: Senna/Docusate Sodium 1 Tablet 2 TABLET PO (21:15)
[2017-09-05] MEDS: Amiodarone 200 MG Tablet 400 MG PO (21:15)
[2017-09-06] VITALS (9 sets, daily range): BP systolic 127–143; BP diastolic 59–82; PULSE 52–60; RESP 16–24; TEMP 36.3–36.6; O2SAT 90–96; BMI 30.4
--- NOTE | 2017-09-06 04:00 | NURSING ---
REVIEWED AND AGREE WITH DIRECTOR OF CARDIOLOGY SERVICE LINE'S FIM AND HANDOFF CHARTING.
[2017-09-06 06:04] LABS: Hematocrit 38.5 % (37-47); Hemoglobin 12.2 g/dl (12.0-15.0); Mean Corp Hgb Conc 31.7 g/gl (32-36); Mean Corpuscular Hgb 29.6 pg (27.0-32.0); Mean Corpuscular Volume 93.4 fL (81-99); Platelet Count 228 K/mm3 (150-450); RBC Distribution Width CV 13.5 % (11.6-14.6); RBC Distribution Width SD 44.7 fl (35.1-43.9); Red Blood Count 4.12 M/mm3 (4.2-5.4); White Blood Count 11.1 K/mm3 (4.4-11.0)
[2017-09-06 06:05] LABS: Scan Indicated on CBC? Y/N NO
[2017-09-06 06:23] LABS: ALB/GLOB Ratio 0.8 RATIO (0.9-2.4); AST(SGOT) 33 U/L (15-37); Alanine Aminotransfer ALT/SGPT 55 U/L (13-56); Albumin, Serum 2.9 g/dL (3.2-5.0); Alkaline Phosphatase 112 U/L (45-117); Anion Gap 9 (5-15); BUN 30 mg/dL (7-18); BUN/Creat Ratio 35.2 RATIO (10-20); Calcium,Total 8.7 mg/dL (8.5-10.1); Chloride 107 mmol/L (98-107); Creatinine, Serum 0.85 mg/dL (0.55-1.02); EST Glomerular Filtration Rate 69 mL/min (>60); Est Glom Filt Rate - Afr Amer 84 mL/min (>60); Estimated Creatinine Clearance 48.76 ml/min; Globulin 3.7 g/dL (2.2-4.2); Glucose 119 mg/dL (74-106); Magnesium 2.4 mg/dL (1.6-2.6); Phosphorus 3.2 mg/dL (2.5-4.9); Potassium 4.2 mmol/L (3.5-5.1); Protein, Total 6.6 g/dL (6.4-8.2); Sodium Level 143 mmol/L (136-145)
[2017-09-06] MEDS: Budesonide Respules 0.5 MG/2 ML AMPUL.NEB. INHALATION (06:59)
[2017-09-06] MEDS: Ipratropium/Albuterol Sulfate 3 ML AMPUL.NEB INHALATION (06:59)
[2017-09-06] MEDS: Aspirin 81 MG TAB.CHEW PO (10:07)
[2017-09-06] MEDS: Senna/Docusate Sodium 1 Tablet 2 TABLET PO ×2 (10:07→21:14)
--- NOTE | 2017-09-06 10:41 | HP.PCM.COS_ITS ---
History of Present Illness Date of Admission: 09/05/17 Chief Complaint: CVA The patient is a 72 year old Female who was admitted to the rehab unit for rehabilitation after being treated at [facility] [place] for ischemic stroke with strokes found in the left MCA and LICA. She has a pass medical history of CAD s/p CABG x 3, HTN, HLD, and stroke in 1960 2/2 AVM s/p resection and clipping, new onset Afib, Asthma, Emphysema, Prediabetes (A1C 5.8) , CHF, and she was Smoking (up to this admission). She is currently on O2 which is new for her.She initially presented to [facility] ED after being found down by her daughter after she heard a fall in the patient's apartment. She was transferred to [facility] as she had a prior history of stroke, AVM, surgical clips. She was admitted to [facility] and treated medically, no TPA, no surgery. Initial CTH showed changes in the parietal motor and sensory cortex. Unable to obtain an MRI 2/2 metal piece in her brain from AVM clipping. A CT perfusion was done instead. An Echo was obtained which showed a severely dilated LV with a dyskinetic septum, severe inferior wall hypokinesis, mild anterior wall and apical hypokinesis, and EF of 36%, she has a normal RV. During her stay she was placed in the ICU and had COPD exacerbation secondary to acute influenza, heart failure with reduced ejection fraction, she also developed significant dysphagia and had a feeding tube temporarily. She has residual stroke deficits including aphasia, right-sided upper and lower extremity weakness, right-sided blurred vision, and significant dysphagia. She remains on a soft mechanical and thin liquid diet. She is unable to express much more than yes or no answers to questions. She does follow simple command occasionally. She continues to have right sided facial droop, Right sided weakness upper and lower extremity, severe aphasia and right side neglect She lives alone, is previously completely functionally independent and is admitted to the rehab unit in order to restore her previous level of functional independence. Per her daughter, at baseline she was using a wheelchair, but was able to walk short distances with a walker. She was able to dress her self, use the bathroom and feed herself. She was taking a baby Aspirin and a statin at home prior to this admission. Past Medical History Past Medical History (Chronic Problems): Chronic Problems Nicotine abuse (Chronic) COPD (chronic obstructive pulmonary disease) (Chronic) Asthma (Chronic) CHF (congestive heart failure) (Chronic) Debility (Chronic) Ischemic stroke (Chronic) Atrial fibrillation (Chronic) Dysphagia (Chronic) Hypertension (Chronic) Tobacco abuse disorder (Chronic) Allergies furosemide [From Lasix] Allergy (Verified 05/10/16 08:50) Hives Penicillins Allergy (Verified 05/10/16 08:54) Hives Home Medications: Ambulatory Orders Medication Instructions Recorded Aspirin 81 mg PO DAILY 05/18/17 Amiodarone HCl [Pacerone] 400 mg PO DAILY 09/05/17 Atorvastatin Calcium [Lipitor] 40 mg PO QHS 09/05/17 Budesonide Aerosol [Pulmicort 0.5 mg INHALATION BID 09/05/17 Aerosol] Carvedilol [Coreg] 6.25 mg PO BIDAC 09/05/17 HydrALAZINE [Apresoline] 75 mg PO Q8H 09/05/17 Ipratropium/Albuterol Sulfate 3 ml INHALATION Q4HWA.RT 09/05/17 [Duoneb] Lisinopril [Zestril] 40 mg PO DAILY 09/05/17 Nifedipine [Nifedipine ER] 30 mg PO DAILY 09/05/17 Surgical History: coronary bypass surgery, total knee arthroplasty - BL Psychiatric History: No pertinent psych hx [employer] History: 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 Lives: Alone Smoking Status: Current every day smoker Tobacco Use: Cigarettes Alcohol: None Drugs: None - *Family History Maternal History Items: No pertinent history Paternal History Items: Heart Disease Review of Systems Constitutional: Denies: Chills, Fever, Weight Change HEENT: Denies: Head Aches, Sinus Congestion, Sinus Drainage Cardiovascular: Denies: Chest Pain, Palpitations Respiratory: Denies: Cough, Shortness of breath at rest, Sputum production Gastrointestinal: Denies: Abdominal Pain, Nausea, Vomiting Genitourinary: Denies: Dysuria Musculoskeletal: Denies: Joint Pain, Joint Tenderness Skin: Denies: Rash, Wounds Neurological: Reports: - - dysphagia, right sided weakness, right eye blurred vision, right arm numbness.. Denies: Focal weakness, Tingling Psychiatric: Denies: Anxiety, Depression, Homicidal Ideations, Suicidal Ideations Hematologic/ Lymphatic: Denies: Easy Bruising, Easy Bleeding VTE Information - Inpt Only VTE Present on Admission: No VTE Mechan Device Prophylaxis: SCD's, Knee High DELILAH Hose VTE Pharm Prophylaxis ordered?: Yes - Physical Exam General: Alert, Oriented x3, Cooperative, - - aphasia HEENT: Atraumatic, PERRLA, EOMI, Normocephalic Neck: Supple, No JVD, Negative Carotid Bruits Lungs: Diminished, Rhonchi - scattered Cardiovascular: Regular rate, No murmurs Abdomen: Bowel Sounds Present, Soft, Non Tender Extremities: No edema, Capillary Refill Less than 3 Seconds Skin: No rashes, No breakdown Musculoskeletal: No Tenderness to Palpation of Joints or Extremities Neurological: Cranial nerves II-XII grossly intact Psych/Mental Status: Normal Affect, Appropriate Vital Signs Temp Pulse Resp BP Pulse Ox 97.8 F 54 L 24 H 127/59 H 92 09/06/17 09:56 09/06/17 09:56 09/06/17 09:56 09/06/17 09:56 09/06/17 09:56 Oxygen Flow Rate 2 Oxygen Delivery Method Room Air Weight: 78.018 kg Body Mass Index (BMI) 30.4 Finger Stick Blood Glucose 125 Intake and Output for Last 24 Hours 09/04/17 09/05/17 09/06/17 23:59 23:59 23:59 Intake Total 60 / 60 20 / 20 Output Total 300 / 300 Balance 60 / 60 -280 / -280 Laboratory Tests Past 24 Hrs 09/06/17 09/06/17 05:35 05:35 WBC 11.1 H RBC 4.12 L Hgb 12.2 Hct 38.5 MCV 93.4 MCH 29.6 MCHC 31.7 L RDW 13.5 RDW Differential 44.7 H Plt Count 228 MPV 11.0 Sodium 143 Potassium 4.2 Chloride 107 Carbon Dioxide 27.0 Anion Gap 9 BUN 30 H Creatinine 0.85 Estim Creat Clear Calc 48.76 Est GFR (MDRD) Af Amer 84 Est GFR (MDRD) Non-Af 69 BUN/Creatinine Ratio 35.2 H Glucose 119 H Calcium 8.7 Phosphorus 3.2 Magnesium 2.4 Total Bilirubin 0.70 AST 33 ALT 55 Alkaline Phosphatase 112 Total Protein 6.6 Albumin 2.9 L Globulin 3.7 Albumin/Globulin Ratio 0.8 L Active Medications Albuterol/Ipratropium (Duoneb) 3 ml INHALATION Q4HWA.RT [facility] Last Admin: 09/06/17 06:59 Dose: 3 ml Amiodarone HCl (Cordarone) 400 mg PO BID [facility] Stop: 09/12/17 22:01 Last Admin: 09/05/17 21:15 Dose: 400 mg Amiodarone HCl (Cordarone) 200 mg PO DAILY [facility] Aspirin (Aspirin, Baby) 81 mg PO DAILYCM [facility] Last Admin: 09/06/17 10:07 Dose: 81 mg Atorvastatin Calcium (Lipitor) 40 mg PO QHS [facility] Last Admin: 09/05/17 21:15 Dose: 40 mg Bisacodyl (Dulcolax) 10 mg RECTAL .PRN X 1 PRN PRN Reason: Constipation Budesonide (Pulmicort Aerosol) 0.5 mg INHALATION BID.RT [facility] Last Admin: 09/06/17 06:59 Dose: 0.5 mg Carvedilol (Coreg) 6.25 mg PO BIDAC [facility] Last Admin: 09/05/17 17:14 Dose: 6.25 mg Enoxaparin Sodium (Lovenox) 40 mg SC DAILY@0600 [facility] Hydralazine HCl (Apresoline) 75 mg PO Q8 [facility] Last Admin: 09/06/17 05:43 Dose: 75 mg Lisinopril (Zestril) 40 mg PO DAILY [facility] Magnesium Hydroxide (Milk Of Magnesia) 30 ml PO .PRN X 1 PRN PRN Reason: Constipation Mirtazapine (Remeron) 15 mg PO QHS [facility] Nifedipine (Procardia Xl) 30 mg PO DAILY [facility] Senna/Docusate Sodium (Senokot-S, Evie-Colace) 2 tablet PO BID [facility] Last Admin: 09/06/17 10:07 Dose: 2 tablet Assessment/Plan Debility s/p acute ischemic strokes of the L MCA and LICA, Complicated by prior stroke, AVM slips, New onset AFib, right sided deficits., severe aphasia and dysphagia. Goal of rehab is [facility] of functional independence. Plan: - Physical therapy for gait and balance - Occupational Therapy for ADLs - Speech therapy - As needed analgesics - Bowel protocol - Stroke prevention on ASA, Statin and Lovenox, will transition to Eliquis 03/13 , then will d/c the ASA, and Lovenox - DVT prophylaxis: SCDs, ASA, Lovenox - New onset PAF - to start OAC (eliquis) if repeat CT scan is good. will continue Amio and taper according to direction from [facility]. - CAD s/p prior CABGx3 - asa, statin, Coreg, eunice, Procardia, hydralazine - Prediabetes - sliding scale insulin. A1C 5.8, - Asthma/Emphysema with chronic hypoxic respiratory failure - IS, wean as tolerated. Aerosols PRN. Recent COPD exacerbation, and Flu which was treated with 5 days of steroids and 5 days of Tamiflu - HTN - continue current therapy. - Dysphagia - mechanical soft, thin liquids. - Hx Systolic CHF and cardiomyopathy - continue current meds, avoid overhydration. Monitor for fluid overload. - Nicotine abuse - was smoking up to this stroke admission. Patch if desired. Cessation encouraged.
[2017-09-06] MEDS: Enoxaparin 40 MG/0.4 ML Syringe SC (10:56)
[2017-09-06] MEDS: Lisinopril 40 MG Tablet PO (10:56)
[2017-09-06] MEDS: Amiodarone 200 MG Tablet 400 MG PO ×2 (10:56→21:14)
[2017-09-06] MEDS: NIFEdipine 30 MG Tablet PO (10:56)
--- NOTE | 2017-09-06 11:34 | REHABEVAL_ITS ---
Admission Information Status Changes from Prescreening?: No changes Identified Actual Problem List:: Mobility Impaired, Self Care Deficit, BP, Hypertension Potential Problem List:: DVT, Bleeding, Infection, UTI, Aspiration, Falls, Skin Integrity, Depression Risk of Complications DVT: LMWH, DELILAH Hose, Sequential Compression Device Bleeding: Monitor Lab Values, Nursing to Teach Precautions for anti-coagulation therapy., Wound, if applicable, to be assessed every shift., Stroke patients assessed for lethargy or change in status. Infection: Clinical Staff to Monitor for S/S of infection:, S/S of infection include fever, redness, warmth, etc. Urinary Tract Infection: Monitor for frequency, burning, discomfort, or incontinence., Nursing will obtain urine sample for urinalysis and C&S when ordered. Aspiration: Clinical staff will monitor for coughing, drooling, congestion., Speech will evaluate swallowing and dsyphasia., Nursing will monitor patient swallowing during meals. Falls: Patient will be evaluated for Fall Precautions, Patient will be placed on Fall Precautions as indicated per protocol. Skin Breakdown: Nursing will assess skin daily using assessment tool., Nursing will place on Skin Breakdown Precautions as indicated. Pain: Clinical staff will assess patient's pain level per protocol., Medications will be given, if needed, and the pain level reassessed., Other methods: Massage, distraction, decrease stimulus, etc. used PRN. Plan of Care Patient requires physician specializing in physical medicine and rehab oversight to provide close medical supervision of rehab issues including: Pain Management, Sleep Problems, Bowel and Bladder, Medical and co-morbidity Management, DVT prophylaxis, Rehabilitation Leadership, Coordination of treatment team Patient needs Physical Therapy: For a minimum of 1 hour, At least 5 out of 7 days Patient needs Physical Therapy to improve:: Mobility, Mobility, Mobility, Strengthening, Transfers, Stretching, ROM, Endurance, Stairs, Gait, Balance Patient needs Occupational Therapy: For a minimum of 1 hour, At least 5 out of 7 days Patient needs Occupational Therapy to improve ADL's incl.: Eating, Grooming, Bathing, Dressing, Toileting, Toilet transfers, Community Reintegration, Higher functioning activities, Household tasks, Adaptive Equipment, Splinting, Other activities as determined Patient requires speech therapy: For a minimum of 1 hour, At least 5 out of 7 days Patient requires speech therapy for: Swallowing, Cognition, Language Skills, Compensatory Strategies Patient requires 29/01 Rehabilitation Nursing for: Pain Issues, Identifying and preventing risk factors, Monitoring and reporting current medical conditions, Assisting with ambulation, transfer, and all ADL's, Teaching patients about disease process and medications, Family teaching, Providing safe environment, Bowel and Bladder Issues, Skin integrity, Medication Management Patient needs Communications Advisor/ Case Management for: Discharge Planning, Arranging Home Equipment or Services, Family Interventions Patient needs Dietary and Nutrition Services for: Adequate Nutrition, Nutritional Supplements, Nutritional Education Goals Patient will remain: free from falls, or injury at time of discharge. Patient will perform bed mobility at: MOD I level of assist. Patient will complete transfers from bed to chair at: MOD I level of assist. Patient will ambulate: 100 feet, with MOD I assist, with LRD Patient will complete upper body dressing at: MOD I level of assist. Patient will complete lower body dressing at: MOD I level of assist. Patient will complete toileting at: MOD I level of assist. Patient will perform bathing at: MOD I level of assist. Patient will complete grooming at: MOD I level of assist. Patient will complete home management skills at: MOD I level of assist. Patient will achieve: 12 stairs, at MOD I assist Patient will have pain level of: of 3 or less Patient's skin will: remain intact, free from infection. Patient will receive: adequate nutrition. Discharge Planning Pt Prognosis for Sig. Practical Improv. w/in Reasonable Time: Fair Estimated Length of stay (days): 16 Anticipated D/C Destination: Custodial Facility
[2017-09-06] MEDS: Carvedilol 6.25 MG Tablet PO (17:22)
[2017-09-06] MEDS: Mirtazapine 15 MG Tablet PO (21:14)
[2017-09-06] MEDS: Atorvastatin Calcium 40 MG Tablet PO (21:14)
[2017-09-06] MEDS: Menthol/Lanolin/Calamine/Znox 113 GM Tube 1 APPLIC TOPICAL (21:15)
[2017-09-07] VITALS (9 sets, daily range): BP systolic 115–146; BP diastolic 46–66; PULSE 52–66; RESP 16–18; TEMP 36.6–36.9; O2SAT 90–96; BMI 30.4
--- NOTE | 2017-09-07 02:20 | NURSING ---
Reviewed and agree with [employer] documentation.
[2017-09-07] MEDS: Enoxaparin 40 MG/0.4 ML Syringe SC (05:23)
[2017-09-07] MEDS: Carvedilol 6.25 MG Tablet PO ×2 (07:57→18:10)
[2017-09-07] MEDS: Lisinopril 40 MG Tablet PO (07:57)
[2017-09-07] MEDS: Amiodarone 200 MG Tablet 400 MG PO ×2 (07:57→20:35)
[2017-09-07] MEDS: Aspirin 81 MG TAB.CHEW PO (07:57)
[2017-09-07] MEDS: Senna/Docusate Sodium 1 Tablet 2 TABLET PO (07:57)
[2017-09-07] MEDS: NIFEdipine 30 MG Tablet PO (07:57)
--- NOTE | 2017-09-07 08:00 | CT_ITS ---
STUDY: CT BRAIN WITHOUT CONTRAST REASON FOR EXAM: Female, 72 years old. Right-sided weakness. Severe achalasia. RADIATION DOSAGE (If Supplied By Facility): CTDIvol = ( 44.99 ) mGy, DLP = ( 796.11 ) mGycm TECHNIQUE: Transaxial CT imaging of the brain was performed without administration of intravenous contrast material. Individualized dose optimization techniques were used for this CT. COMPARISON: Comparison is made with prior study dated August 25, 2017. FINDINGS: Normal soft tissue structures. The patient is status post right posterior occipital craniotomy and resection of a portion of the right cerebellar hemisphere. Being hardening artifacts from metallic clips are seen within the right cerebellar hemisphere. Normal size ventricles and extra-axial spaces for the patient's age. Since prior examination, there is evidence of a encephalomalacia involving the left temporal parietal lobes in keeping with recent infarction. No significant edema is seen at this time. There are small punctate calcifications of the basal ganglia which are seen in the aging brain as a normal variant. Stable encephalomalacia of the posterior left parietal occipital lobe. This is unchanged. Vascular clips are seen in the region of the left paraclinoid area. Normal brainstem. Normal cerebellum. There is no intracranial hemorrhage. Mucosal thickening of the sphenoid sinus and ethmoid sinus. CT/Brain/Head without Contrast IMPRESSION: Since prior study, there has been progression of the encephalomalacia in the left temporal parietal lobe suggestive of a subacute infarction. No significant mass effect is seen at this time. Electronically Signed: Orville Espinosa MD at 12:44 EST Tel [phone], Service support ,
[2017-09-07] MEDS: Menthol/Lanolin/Calamine/Znox 113 GM Tube 1 APPLIC TOPICAL ×2 (08:11→20:38)
--- NOTE | 2017-09-07 08:30 | NURSING ---
off floor to ct of head
--- NOTE | 2017-09-07 09:40 | NURSING ---
back to floor from ct scan.
--- NOTE | 2017-09-07 09:53 | PCM.PN.NEU ---
Subjective: Patient seen prior to going down for CT scan. Will start on Eliquis today, if no changes noted on CT scan. Tolerating therapy. Remains on O2 at 3L, SATs have been in the high 80's and the low 90's. No issues with GI/. - Physical Exam General: Alert, Oriented x3, Cooperative HEENT: Atraumatic, PERRLA, EOMI, Normocephalic Neck: Supple, No JVD, Negative Carotid Bruits Lungs: Clear to auscultation, Normal air movement Cardiovascular: Regular rate, No murmurs Abdomen: Bowel Sounds Present, Soft, Non Tender Extremities: No edema, Capillary Refill Less than 3 Seconds Skin: No rashes, No breakdown Musculoskeletal: No Tenderness to Palpation of Joints or Extremities Neurological: Cranial nerves II-XII grossly intact Psych/Mental Status: Normal Affect, Appropriate Vital Signs Temp Pulse Resp BP Pulse Ox 97.9 F 60 16 135/61 H 90 09/07/17 08:40 09/07/17 08:40 09/07/17 08:40 09/07/17 08:40 09/07/17 08:40 Oxygen Flow Rate 2 Oxygen Delivery Method Room Air Weight: 78.018 kg Body Mass Index (BMI) 30.4 Finger Stick Blood Glucose 125 Intake and Output for Last 24 Hours 09/05/17 09/06/17 09/07/17 23:59 23:59 23:59 Intake Total 60 / 60 320 / 320 60 / 60 Output Total 300 / 300 Balance 60 / 60 20 / 20 60 / 60 Active Medications Albuterol/Ipratropium (Duoneb) 3 ml INHALATION Q4HWA.RT [facility] Last Admin: 09/07/17 06:50 Dose: Not Given Amiodarone HCl (Cordarone) 400 mg PO BID [facility] Stop: 09/12/17 22:01 Last Admin: 09/07/17 07:57 Dose: 400 mg Amiodarone HCl (Cordarone) 200 mg PO DAILY [facility] Last Admin: 09/07/17 07:57 Dose: 81 mg Atorvastatin Calcium (Lipitor) 40 mg PO QHS [facility] Last Admin: 09/06/17 21:14 Dose: 40 mg Bisacodyl (Dulcolax) 10 mg RECTAL .PRN X 1 PRN PRN Reason: Constipation Budesonide (Pulmicort Aerosol) 0.5 mg INHALATION BID.RT [facility] Last Admin: 09/07/17 06:50 Dose: Not Given Calamine/Phenol (Calmoseptine Ointment) 1 applic TOPICAL BID [facility] PRN Reason: Protocol Last Admin: 09/07/17 08:11 Dose: 1 applicatio Carvedilol (Coreg) 6.25 mg PO BIDAC [facility] Last Admin: 09/07/17 07:57 Dose: 6.25 mg Enoxaparin Sodium (Lovenox) 40 mg SC DAILY@0600 [facility] Last Admin: 09/07/17 05:23 Dose: 40 mg Hydralazine HCl (Apresoline) 75 mg PO Q8 [facility] Last Admin: 09/07/17 05:23 Dose: 75 mg Lisinopril (Zestril) 40 mg PO DAILY [facility] Last Admin: 09/07/17 07:57 Dose: 40 mg Magnesium Hydroxide (Milk Of Magnesia) 30 ml PO .PRN X 1 PRN PRN Reason: Constipation Mirtazapine (Remeron) 15 mg PO QHS [facility] Last Admin: 09/06/17 21:14 Dose: 15 mg Nifedipine (Procardia Xl) 30 mg PO DAILY [facility] Last Admin: 09/07/17 07:57 Dose: 30 mg Senna/Docusate Sodium (Senokot-S, Evie-Colace) 2 tablet PO BID [facility] Last Admin: 09/07/17 09:41 Dose: Not Given Assessment/Plan Debility s/p acute ischemic strokes of the L MCA and LICA, Complicated by prior stroke, AVM slips, New onset AFib, right sided deficits., severe aphasia and dysphagia. Goal of rehab is restorationist of functional independence. Plan: - Physical therapy for gait and balance - Occupational Therapy for ADLs - Speech therapy - As needed analgesics - Bowel protocol - Stroke prevention on ASA, Statin and Lovenox, will transition to Eliquis after CT scan, will then D/C the ASA and the Lovenox - DVT prophylaxis: SCDs, ASA, Lovenox - New onset PAF - to start OAC (eliquis) if repeat CT scan is good. will continue Amio and taper according to direction from [facility]. - CAD s/p prior CABGx3 - asa, statin, Coreg, eunice, Procardia, hydralazine - Prediabetes - sliding scale insulin. A1C 5.8, - Asthma/Emphysema with chronic hypoxic respiratory failure - IS, wean as tolerated. Aerosols PRN. Recent COPD exacerbation, and Flu which was treated with 5 days of steroids and 5 days of Tamiflu - HTN - continue current therapy. - Dysphagia - mechanical soft, thin liquids. - Hx Systolic CHF and cardiomyopathy - continue current meds, avoid overhydration. Monitor for fluid overload. - Nicotine abuse - was smoking up to this stroke admission. Patch if desired. Cessation encouraged. - CT Scan brain, will start Eliquis if no changes are noted.
--- NOTE | 2017-09-07 10:00 | PN.NEURO_ITS ---
Subjective: Patient seen prior to going down for CT scan. Will start on Eliquis today, if no changes noted on CT scan. Tolerating therapy. Remains on O2 at 3L, SATs have been in the high 80's and the low 90's. No issues with GI/. - Physical Exam General: Alert, Oriented x3, Cooperative HEENT: Atraumatic, PERRLA, EOMI, Normocephalic Neck: Supple, No JVD, Negative Carotid Bruits Lungs: Clear to auscultation, Normal air movement Cardiovascular: Regular rate, No murmurs Abdomen: Bowel Sounds Present, Soft, Non Tender Extremities: No edema, Capillary Refill Less than 3 Seconds Skin: No rashes, No breakdown Musculoskeletal: No Tenderness to Palpation of Joints or Extremities Neurological: Cranial nerves II-XII grossly intact Psych/Mental Status: Normal Affect, Appropriate Vital Signs Temp Pulse Resp BP Pulse Ox 97.9 F 60 16 135/61 H 90 09/07/17 08:40 09/07/17 08:40 09/07/17 08:40 09/07/17 08:40 09/07/17 08:40 Oxygen Flow Rate 2 Oxygen Delivery Method Room Air Weight: 78.018 kg Body Mass Index (BMI) 30.4 Finger Stick Blood Glucose 125 Intake and Output for Last 24 Hours 09/05/17 09/06/17 09/07/17 23:59 23:59 23:59 Intake Total 60 / 60 320 / 320 60 / 60 Output Total 300 / 300 Balance 60 / 60 20 / 20 60 / 60 Active Medications Albuterol/Ipratropium (Duoneb) 3 ml INHALATION Q4HWA.RT [facility] Last Admin: 09/07/17 06:50 Dose: Not Given Amiodarone HCl (Cordarone) 400 mg PO BID [facility] Stop: 09/12/17 22:01 Last Admin: 09/07/17 07:57 Dose: 400 mg Amiodarone HCl (Cordarone) 200 mg PO DAILY [facility]irin ([facility]in, Baby) [facility] Last Admin: 09/07/17 07:57 Dose: 81 mg Atorvastatin Calcium (Lipitor) 40 mg PO QHS [facility] Last Admin: 09/06/17 21:14 Dose: 40 mg Bisacodyl (Dulcolax) 10 mg RECTAL .PRN X 1 PRN PRN Reason: Constipation Budesonide (Pulmicort Aerosol) 0.5 mg INHALATION BID.RT [facility] Last Admin: 09/07/17 06:50 Dose: Not Given Calamine/Phenol (Calmoseptine Ointment) 1 applic TOPICAL BID [facility] PRN Reason: Protocol Last Admin: 09/07/17 08:11 Dose: 1 applicatio Carvedilol (Coreg) 6.25 mg PO BIDAC [facility] Last Admin: 09/07/17 07:57 Dose: 6.25 mg Enoxaparin Sodium (Lovenox) 40 mg SC DAILY@0600 [facility] Last Admin: 09/07/17 05:23 Dose: 40 mg Hydralazine HCl (Apresoline) 75 mg PO Q8 [facility] Last Admin: 09/07/17 05:23 Dose: 75 mg Lisinopril (Zestril) 40 mg PO DAILY [facility] Last Admin: 09/07/17 07:57 Dose: 40 mg Magnesium Hydroxide (Milk Of Magnesia) 30 ml PO .PRN X 1 PRN PRN Reason: Constipation Mirtazapine (Remeron) 15 mg PO QHS [facility] Last Admin: 09/06/17 21:14 Dose: 15 mg Nifedipine (Procardia Xl) 30 mg PO DAILY [facility] Last Admin: 09/07/17 07:57 Dose: 30 mg Senna/Docusate Sodium (Senokot-S, Evie-Colace) 2 tablet PO BID [facility] Last Admin: 09/07/17 09:41 Dose: Not Given Assessment/Plan Debility s/p acute ischemic strokes of the L MCA and LICA, Complicated by prior stroke, AVM slips, New onset AFib, right sided deficits., severe aphasia and dysphagia. Goal of rehab is [facility]iscopalian of functional independence. Plan: - Physical therapy for gait and balance - Occupational Therapy for ADLs - Speech therapy - As needed analgesics - Bowel protocol - Stroke prevention on ASA, Statin and Lovenox, will transition to Eliquis after CT scan, will then D/C the ASA and the Lovenox - DVT prophylaxis: SCDs, ASA, Lovenox - New onset PAF - to start OAC (eliquis) if repeat CT scan is good. will continue Amio and taper according to direction from [facility]. - CAD s/p prior CABGx3 - asa, statin, Coreg, eunice, Procardia, hydralazine - Prediabetes - sliding scale insulin. A1C 5.8, - Asthma/Emphysema with chronic hypoxic respiratory failure - IS, wean as tolerated. Aerosols PRN. Recent COPD exacerbation, and Flu which was treated with 5 days of steroids and 5 days of Tamiflu - HTN - continue current therapy. - Dysphagia - mechanical soft, thin liquids. - Hx Systolic CHF and cardiomyopathy - continue current meds, avoid overhydration. Monitor for fluid overload. - Nicotine abuse - was smoking up to this stroke admission. Patch if desired. Cessation encouraged. - CT Scan brain, will start Eliquis if no changes are noted.
--- NOTE | 2017-09-07 16:15 | PCM.PN.HOSP ---
Subjective: Patient with no acute events since last evaluation per RN report. She remains flacid/hemiplegic on the R sided. She continues on current mechanical soft with thin liquids, but sometimes can be very impulsive in actions. Remains incontinent. Intermittently improved in interactions, during current evaluation she was able to follow directions and have discussion, but is noted to occasionally be more confused. Patient denies fevers, chills, nausea, emesis, abdominal pain, chest pain or dyspnea. Objective: Physical Examination: General: awake, alert, oriented x 3 and cooperative, seated upright in bed, mildly agitated with questioning. Skin: normal color, turgor, no icterus, cyanosis. HEENT: AT/NC, EOM aside R eye deficits, mildly dry MM. Lungs: CTA bilaterally, moderate effort, mild decrease BL bases, no rales, ronchi or wheezing. Heart: Irregular; no gallop, rub audible. Abdomen: soft, obese, NTTP, ND, normal BS. Extremities: no cyanosis, clubbing, R sided flaccid, hemiplegic. Neurological: patient awake, alert, oriented to self, recent events, year; cognitive function not baseline intact, varies in ability; R eye vision changes ongoing; cranial nerves II-XII grossly normal aside deficits, R sided flaccid, sensation R sided lacking, aphasia present, strength accordingly severely globally decreased. Psychiatric: affect appears mildly agitated with questioning, no acute evidence of depressive or anxiety feelings. Vitals/I&O's: Vital Signs Temp Pulse Resp BP Pulse Ox 97.9 F 56 L 16 138/58 H 94 09/07/17 08:40 09/07/17 15:00 09/07/17 08:40 09/07/17 15:00 09/07/17 14:59 Oxygen Flow Rate 2 Oxygen Delivery Method Nasal Cannula Weight: 172 lb 0.004 oz Body Mass Index (BMI) 30.4 Finger Stick Blood Glucose 125 Intake and Output for Last 24 Hours 09/05/17 09/06/17 09/07/17 23:59 23:59 23:59 Intake Total 60 / 60 320 / 320 60 / 60 Output Total 300 / 300 Balance 60 / 60 20 / 20 60 / 60 Current Medications Albuterol/Ipratropium (Duoneb) 3 ml INHALATION Q4HWA.RT [facility] Last Admin: 09/07/17 15:00 Dose: Not Given Amiodarone HCl (Cordarone) 400 mg PO BID [facility] Stop: 09/12/17 22:01 Last Admin: 09/07/17 07:57 Dose: 400 mg Amiodarone HCl (Cordarone) 200 mg PO DAILY [facility] Apixaban (Eliquis) 5 mg PO BID [facility] Atorvastatin Calcium (Lipitor) 40 mg PO QHS [facility] Last Admin: 09/06/17 21:14 Dose: 40 mg Bisacodyl (Dulcolax) 10 mg RECTAL .PRN X 1 PRN PRN Reason: Constipation Budesonide (Pulmicort Aerosol) 0.5 mg INHALATION BID.RT [facility] Last Admin: 09/07/17 06:50 Dose: Not Given Calamine/Phenol (Calmoseptine Ointment) 1 applic TOPICAL BID [facility] PRN Reason: Protocol Last Admin: 09/07/17 08:11 Dose: 1 applicatio Carvedilol (Coreg) 6.25 mg PO BIDAC [facility] Last Admin: 09/07/17 07:57 Dose: 6.25 mg Hydralazine HCl (Apresoline) 75 mg PO Q8 [facility] Last Admin: 09/07/17 15:00 Dose: 75 mg Lisinopril (Zestril) 40 mg PO DAILY [facility] Last Admin: 09/07/17 07:57 Dose: 40 mg Magnesium Hydroxide (Milk Of Magnesia) 30 ml PO .PRN X 1 PRN PRN Reason: Constipation Mirtazapine (Remeron) 15 mg PO QHS [facility] Last Admin: 09/06/17 21:14 Dose: 15 mg Nifedipine (Procardia Xl) 30 mg PO DAILY [facility] Last Admin: 09/07/17 07:57 Dose: 30 mg Senna/Docusate Sodium (Senokot-S, Evie-Colace) 2 tablet PO BID [facility] Last Admin: 09/07/17 09:41 Dose: Not Given Assessment/Plan The patient is a 72 y/o F w/ PMHx: Pre-Diabetes mellitus type II, Asthma, Chronic COPD, Recent New Onset Atrial Fibrillation, Tobacco use, HTN, HLD, Chronic Systolic CHF who presents to the [facility] on 09/05/17 following acute ischemic CVA, L MCA and LICA, initially found following fall in her apartment, treated medically with prolonged ICU stay secondary to influenza infection, COPD exacerbation associated with aphasia requiring feeding tube transiently, R sided hemiplegia, R sided blurred vision. (1) Recent Acute CVA, L MCA and LICA with associated R Hemiplegia/Flaccid, R sided Vision Changes, Aphasia: History of prior CVA in addition to AVM with clips per report thus unable to have MRI, recently additionally Dx new onset atrial fibrillation likely etiology. 09/07/17 CT Head w/ progression of encephalomalacia in the left temporoparietal lobe suggestive of subacute infarction with no significant mass-effect seen thus following imaging, per Rehab/Neurology, initiated on anticoagulation (eliquis), continued PT, OT, Speech therapies, fall precautions, BP regimen to maintain goal, BS < 140, tobacco cessation, statin therapy. Maintain on modified diet with mechanical soft, thin liquids or per ST recommendation. (2) Recent New Onset Atrial Fibrillation: Following CT head repeat as noted, initiated on anticoagulation (eliquis), continued amiodarone with taper per Cardiology CC direction. (3) Recent Acute Influenza A Syndrome with Acute on Chronic Asthma/COPD Exacerbation w/ Hypoxia: Completed tamiflu regimen, maintain on oxygen with wean to home oxygen versus room air as able, PRN albuterol, inhalers, steroid taper. If needed may prolong taper if becomes symptomatic. (4) Pre-Diabetes mellitus type II: HgbA1c 5.8%, goal < 140 given concurrent CVA hx as noted, in addition to her CAD hx, plan aggressive treatment including victoza or SGL T21 agent. (5) CAD: s/p CABG, maintain on home regimen eliquis, statin, BB, ACEI. (6) Systolic CHF, Cardiomyopathy, Unclear Type: Compensated, maintain on eliquis, statin, BB, ACEI, avoid aggressive hydration. (7) Tobacco Abuse: Encouraged cessation, inpatient consultation per RT, NR if desired. (8) Fall w/ R Ankle strain, sprain: Found down w/ onset #1 sxs, continue therapies, fall precautions, aircast/brace with activity, elevation, icing. (9) Hypertension: Continue home regimen including lisinopril, hydralazine, nifedipine, PRN hydralazine. (10) Hyperlipidemia: Continue home statin regimen. (11) DVT prophylaxis: SCDs, eliquis. Code Visit Inpatient E&M: 69104 Subs Hosp L2
--- NOTE | 2017-09-07 16:27 | PN_ITS ---
Subjective: Patient with no acute events since last evaluation per RN report. She remains flacid/hemiplegic on the R sided. She continues on current mechanical soft with thin liquids, but sometimes can be very impulsive in actions. Remains incontinent. Intermittently improved in interactions, during current evaluation she was able to follow directions and have discussion, but is noted to occasionally be more confused. Patient denies fevers, chills, nausea, emesis, abdominal pain, chest pain or dyspnea. Objective: Physical Examination: General: awake, alert, oriented x 3 and cooperative, seated upright in bed, mildly agitated with questioning. Skin: normal color, turgor, no icterus, cyanosis. HEENT: AT/NC, EOM aside R eye deficits, mildly dry MM. Lungs: CTA bilaterally, moderate effort, mild decrease BL bases, no rales, ronchi or wheezing. Heart: Irregular; no gallop, rub audible. Abdomen: soft, obese, NTTP, ND, normal BS. Extremities: no cyanosis, clubbing, R sided flaccid, hemiplegic. Neurological: patient awake, alert, oriented to self, recent events, year; cognitive function not baseline intact, varies in ability; R eye vision changes ongoing; cranial nerves II-XII grossly normal aside deficits, R sided flaccid, sensation R sided lacking, aphasia present, strength accordingly severely globally decreased. Psychiatric: affect appears mildly agitated with questioning, no acute evidence of depressive or anxiety feelings. Vitals/I&O's: Vital Signs Temp Pulse Resp BP Pulse Ox 97.9 F 56 L 16 138/58 H 94 09/07/17 08:40 09/07/17 15:00 09/07/17 08:40 09/07/17 15:00 09/07/17 14:59 Oxygen Flow Rate 2 Oxygen Delivery Method Nasal Cannula Weight: 172 lb 0.004 oz Body Mass Index (BMI) 30.4 Finger Stick Blood Glucose 125 Intake and Output for Last 24 Hours 09/05/17 09/06/17 09/07/17 23:59 23:59 23:59 Intake Total 60 / 60 320 / 320 60 / 60 Output Total 300 / 300 Balance 60 / 60 20 / 20 60 / 60 Current Medications Albuterol/Ipratropium (Duoneb) 3 ml INHALATION Q4HWA.RT [facility] Last Admin: 09/07/17 15:00 Dose: Not Given Amiodarone HCl (Cordarone) 400 mg PO BID [facility] Stop: 09/12/17 22:01 Last Admin: 09/07/17 07:57 Dose: 400 mg Amiodarone HCl (Cordarone) 200 mg PO DAILY [facility] Apixaban (Eliquis) 5 mg PO BID [facility] Atorvastatin Calcium (Lipitor) 40 mg PO QHS [facility] Last Admin: 09/06/17 21:14 Dose: 40 mg Bisacodyl (Dulcolax) 10 mg RECTAL .PRN X 1 PRN PRN Reason: Constipation Budesonide (Pulmicort Aerosol) 0.5 mg INHALATION BID.RT [facility] Last Admin: 09/07/17 06:50 Dose: Not Given Calamine/Phenol (Calmoseptine Ointment) 1 applic TOPICAL BID [facility] PRN Reason: Protocol Last Admin: 09/07/17 08:11 Dose: 1 applicatio Carvedilol (Coreg) 6.25 mg PO BIDAC [facility] Last Admin: 09/07/17 07:57 Dose: 6.25 mg Hydralazine HCl (Apresoline) 75 mg PO Q8 [facility] Last Admin: 09/07/17 15:00 Dose: 75 mg Lisinopril (Zestril) 40 mg PO DAILY [facility] Last Admin: 09/07/17 07:57 Dose: 40 mg Magnesium Hydroxide (Milk Of Magnesia) 30 ml PO .PRN X 1 PRN PRN Reason: Constipation Mirtazapine (Remeron) 15 mg PO QHS [facility] Last Admin: 09/06/17 21:14 Dose: 15 mg Nifedipine (Procardia Xl) 30 mg PO DAILY [facility] Last Admin: 09/07/17 07:57 Dose: 30 mg Senna/Docusate Sodium (Senokot-S, Evie-Colace) 2 tablet PO BID [facility] Last Admin: 09/07/17 09:41 Dose: Not Given Assessment/Plan The patient is a 72 y/o F w/ PMHx: Pre-Diabetes mellitus type II, Asthma, Chronic COPD, Recent New Onset Atrial Fibrillation, Tobacco use, HTN, HLD, Chronic Systolic CHF who presents to the [facility] on following acute ischemic CVA, L MCA and LICA, initially found following fall in her apartment, treated medically with prolonged ICU stay secondary to influenza infection, COPD exacerbation associated with aphasia requiring feeding tube transiently, R sided hemiplegia, R sided blurred vision. (1) Recent Acute CVA, L MCA and LICA with associated R Hemiplegia/Flaccid, R sided Vision Changes, Aphasia: History of prior CVA in addition to AVM with clips per report thus unable to have MRI, recently additionally Dx new onset atrial fibrillation likely etiology. 09/07/17 CT Head w/ progression of encephalomalacia in the left temporoparietal lobe suggestive of subacute infarction with no significant mass-effect seen thus following imaging, per Rehab/Neurology, initiated on anticoagulation (eliquis), continued PT, OT, Speech therapies, fall precautions, BP regimen to maintain goal, BS < 140, tobacco cessation, statin therapy. Maintain on modified diet with mechanical soft, thin liquids or per ST recommendation. (2) Recent New Onset Atrial Fibrillation: Following CT head repeat as noted, initiated on anticoagulation (eliquis), continued amiodarone with taper per Cardiology CC direction. (3) Recent Acute Influenza A Syndrome with Acute on Chronic Asthma/COPD Exacerbation w/ Hypoxia: Completed tamiflu regimen, maintain on oxygen with wean to home oxygen versus room air as able, PRN albuterol, inhalers, steroid taper. If needed may prolong taper if becomes symptomatic. (4) Pre-Diabetes mellitus type II: HgbA1c 5.8%, goal < 140 given concurrent CVA hx as noted, in addition to her CAD hx, plan aggressive treatment including victoza or SGL T21 agent. (5) CAD: s/p CABG, maintain on home regimen eliquis, statin, BB, ACEI. (6) Systolic CHF, Cardiomyopathy, Unclear Type: Compensated, maintain on eliquis , statin, BB, ACEI, avoid aggressive hydration. (7) Tobacco Abuse: Encouraged cessation, inpatient consultation per RT, NR if desired. (8) Fall w/ R Ankle strain, sprain: Found down w/ onset #1 sxs, continue therapies, fall precautions, aircast/brace with activity, elevation, icing. (9) Hypertension: Continue home regimen including lisinopril, hydralazine, nifedipine, PRN hydralazine. (10) Hyperlipidemia: Continue home statin regimen. (11) DVT prophylaxis: SCDs, eliquis. Code Visit Inpatient E&M: 02262 Subs Hosp L2
[2017-09-07] MEDS: Atorvastatin Calcium 40 MG Tablet PO (20:35)
[2017-09-07] MEDS: Mirtazapine 15 MG Tablet PO (20:37)
[2017-09-08] VITALS (7 sets, daily range): BP systolic 134–145; BP diastolic 59–80; PULSE 49–54; RESP 16; TEMP 36.8; O2SAT 91–94; BMI 30.4
--- NOTE | 2017-09-08 04:35 | NURSING ---
Reviewed and agree with LPNs fims and handoff
[2017-09-08] MEDS: APIXABAN 5 MG TABLET PO ×2 (08:30→20:55)
[2017-09-08] MEDS: Lisinopril 40 MG Tablet PO (08:30)
[2017-09-08] MEDS: NIFEdipine 30 MG Tablet PO (08:30)
[2017-09-08] MEDS: Carvedilol 6.25 MG Tablet PO ×2 (08:31→17:34)
[2017-09-08] MEDS: Amiodarone 200 MG Tablet 400 MG PO ×2 (08:31→20:55)
[2017-09-08] MEDS: Menthol/Lanolin/Calamine/Znox 113 GM Tube 1 APPLIC TOPICAL ×2 (08:35→20:56)
[2017-09-08] MEDS: Budesonide/Formoterol Fumarate 10.2 GM Inhaler 2 PUFF INHALATION ×2 (11:00→20:56)
--- NOTE | 2017-09-08 18:40 | NURSING ---
95% on Room air. will continue to monitor
[2017-09-08] MEDS: Mirtazapine 15 MG Tablet PO (20:54)
[2017-09-08] MEDS: Senna/Docusate Sodium 1 Tablet 2 TABLET PO (20:55)
[2017-09-08] MEDS: Atorvastatin Calcium 40 MG Tablet PO (20:55)
[2017-09-09] VITALS (7 sets, daily range): BP systolic 138–178; BP diastolic 63–76; PULSE 50–58; RESP 16–20; TEMP 36.6–36.8; O2SAT 93–95; BMI 30.4
[2017-09-09] MEDS: Menthol/Lanolin/Calamine/Znox 113 GM Tube 1 APPLIC TOPICAL ×2 (07:46→21:00)
[2017-09-09] MEDS: Lisinopril 40 MG Tablet PO (07:55)
[2017-09-09] MEDS: Budesonide/Formoterol Fumarate 10.2 GM Inhaler 2 PUFF INHALATION ×2 (07:55→21:13)
[2017-09-09] MEDS: Amiodarone 200 MG Tablet 400 MG PO ×2 (07:55→21:14)
[2017-09-09] MEDS: NIFEdipine 30 MG Tablet PO (07:55)
[2017-09-09] MEDS: Carvedilol 6.25 MG Tablet PO ×2 (07:55→17:41)
[2017-09-09] MEDS: Senna/Docusate Sodium 1 Tablet 2 TABLET PO ×2 (07:55→21:14)
[2017-09-09] MEDS: APIXABAN 5 MG TABLET PO ×2 (07:55→21:13)
--- NOTE | 2017-09-09 11:50 | PN_ITS ---
Subjective: She denies any acute events evaluation per self and per nursing report. States that she feels as though her speech has improved but otherwise continued ongoing right-sided hemiplegia unchanged. Affect still seems mildly flat but more talkative today. Patient denies fevers, chills, nausea, emesis, abdominal pain, chest pain or dyspnea. Objective: Physical Examination: General: awake, alert, oriented x 3 and cooperative, seated upright in bed, NAD , more talkative than last evaluation. Skin: normal color, turgor, no icterus, cyanosis. HEENT: AT/NC, EOM aside R eye deficits, MMM. Lungs: CTA bilaterally, moderate effort, mild decrease BL bases, no rales, ronchi or wheezing. Heart: Irregular; no gallop, rub audible. Abdomen: soft, obese, NTTP, ND, normal BS. Extremities: no cyanosis, clubbing, R sided flaccid, hemiplegic. Neurological: patient awake, alert, oriented to self, recent events, year; cognitive function not baseline intact, varies in ability; R eye vision changes ongoing; cranial nerves II-XII grossly normal aside deficits, R sided flaccid, sensation R sided lacking, aphasia present but speech does seem improved today, less slurred, strength accordingly severely globally decreased. Psychiatric: affect appears improved, more calm, more interactive, no acute evidence of depressive or anxiety feelings. Vitals/I&O's: Vital Signs Temp Pulse Resp BP Pulse Ox 97.8 F 58 L 16 138/72 H 93 09/09/17 07:43 09/09/17 07:43 09/09/17 07:43 09/09/17 07:43 09/09/17 07:43 Oxygen Flow Rate 2 Oxygen Delivery Method Room Air Weight: 172 lb 0.004 oz Body Mass Index (BMI) 30.4 Finger Stick Blood Glucose 125 Intake and Output for Last 24 Hours 09/07/17 09/08/17 09/09/17 23:59 23:59 23:59 Intake Total 180 / 180 300 / 300 240 / 240 Balance 180 / 180 300 / 300 240 / 240 Current Medications Albuterol Sulfate (Ventolin Hfa (Sp)) 1 puff INHALATION Q4H PRN PRN PRN Reason: SOB &/OR WHEEZING Amiodarone HCl (Cordarone) 400 mg PO BID [facility] Stop: 09/12/17 22:01 Last Admin: 09/09/17 07:55 Dose: 400 mg Amiodarone HCl (Cordarone) 200 mg PO DAILY [facility] Apixaban (Eliquis) 5 mg PO BID [facility] Last Admin: 09/09/17 07:55 Dose: 5 mg Atorvastatin Calcium (Lipitor) 40 mg PO QHS [facility] Last Admin: 09/08/17 20:55 Dose: 40 mg Bisacodyl (Dulcolax) 10 mg RECTAL .PRN X 1 PRN PRN Reason: Constipation Budesonide/Formoterol Fumarate (Symbicort 160/4.5 Mcg Inhaler (Sp)) 2 puff INHALATION BID [facility] Last Admin: 09/09/17 07:55 Dose: 2 puff Calamine/Phenol (Calmoseptine Ointment) 1 applic TOPICAL BID [facility] PRN Reason: Protocol Last Admin: 09/09/17 07:46 Dose: 1 applicatio Carvedilol (Coreg) 6.25 mg PO BIDAC [facility] Last Admin: 09/09/17 07:55 Dose: 6.25 mg Hydralazine HCl (Apresoline) 75 mg PO Q8 [facility] Last Admin: 09/09/17 05:08 Dose: 75 mg Lisinopril (Zestril) 40 mg PO DAILY [facility] Last Admin: 09/09/17 07:55 Dose: 40 mg Magnesium Hydroxide (Milk Of Magnesia) 30 ml PO .PRN X 1 PRN PRN Reason: Constipation Mirtazapine (Remeron) 15 mg PO QHS [facility] Last Admin: 09/08/17 20:54 Dose: 15 mg Nifedipine (Procardia Xl) 30 mg PO DAILY [facility] Last Admin: 09/09/17 07:55 Dose: 30 mg Senna/Docusate Sodium (Senokot-S, Evie-Colace) 2 tablet PO BID [facility] Last Admin: 09/09/17 07:55 Dose: 2 tablet Assessment/Plan The patient is a 72 y/o F w/ PMHx: Pre-Diabetes mellitus type II, Asthma, Chronic COPD, Recent New Onset Atrial Fibrillation, Tobacco use, HTN, HLD, Chronic Systolic CHF who presents to the [facility] on following acute ischemic CVA, L MCA and LICA, initially found following fall in her apartment, treated medically with prolonged ICU stay secondary to influenza infection, COPD exacerbation associated with aphasia requiring feeding tube transiently, R sided hemiplegia, R sided blurred vision. (1) Recent Acute CVA, L MCA and LICA with associated R Hemiplegia/Flaccid, R sided Vision Changes, Aphasia: History of prior CVA in addition to AVM with clips per report thus unable to have MRI, recently additionally Dx new onset atrial fibrillation likely etiology. 09/07/17 CT Head w/ progression of encephalomalacia in the left temporoparietal lobe suggestive of subacute infarction with no significant mass-effect seen thus following imaging, per Rehab/Neurology, initiated on anticoagulation (eliquis), continued PT, OT, Speech therapies, fall precautions, BP regimen to maintain goal, BS < 140, tobacco cessation, statin therapy. Maintain on modified diet with mechanical soft, thin liquids or per ST recommendation. BPs since last evaluation usually within goal, but occasionally >140/90, HR 50s. Speech as noted seems mildly improved, although nursing has noted intermittent improvement in interactions. (2) Recent New Onset Atrial Fibrillation: Following CT head repeat as noted, initiated on anticoagulation (eliquis), continued amiodarone with taper per Cardiology CC direction. (3) Recent Acute Influenza A Syndrome with Acute on Chronic Asthma/COPD Exacerbation w/ Hypoxia: Completed tamiflu regimen, maintain on oxygen with wean to home oxygen versus room air as able, PRN albuterol, inhalers, steroid taper. If needed may prolong taper if becomes symptomatic. (4) Pre-Diabetes mellitus type II: HgbA1c 5.8%, goal < 140 given concurrent CVA hx as noted, in addition to her CAD hx, plan aggressive treatment including victoza or SGL T21 agent. (5) CAD: s/p CABG, maintain on home regimen eliquis, statin, BB, ACEI. (6) Systolic CHF, Cardiomyopathy, Unclear Type: Compensated, maintain on eliquis , statin, BB, ACEI, avoid aggressive hydration. (7) Tobacco Abuse: Encouraged cessation, inpatient consultation per RT, NR if desired. (8) Fall w/ R Ankle strain, sprain: Found down w/ onset #1 sxs, continue therapies, fall precautions, aircast/brace with activity, elevation, icing. (9) Hypertension: Continue home regimen including lisinopril, hydralazine, nifedipine, PRN hydralazine. (10) Hyperlipidemia: Continue home statin regimen. (11) DVT prophylaxis: SCDs, eliquis. Code Visit Inpatient E&M: 06982 Subs Hosp L2
[2017-09-09] MEDS: Mirtazapine 15 MG Tablet PO (21:13)
[2017-09-09] MEDS: Atorvastatin Calcium 40 MG Tablet PO (21:15)
[2017-09-10] VITALS (10 sets, daily range): BP systolic 129–140; BP diastolic 55–68; PULSE 50–56; RESP 18–20; TEMP 37–37.2; O2SAT 92–95; BMI 30.4
--- NOTE | 2017-09-10 04:48 | NURSING ---
Reviewed and agree with LPNs fims and handoff
--- NOTE | 2017-09-10 06:58 | NURSING ---
0500 pt noted not to have voided this shift and denied the need to void, pt placed on the bsc to try to void with no results. pt returned to bed and bladder scanned for 318cc . rn made aware and pt was then was straight cathed for 400cc of clear yellow urine. pt tolerated well
--- NOTE | 2017-09-10 10:00 | RAD_ITS ---
STUDY: X-RAY CHEST REASON FOR EXAM: Female, 72 years old. Cough. TECHNIQUE: Single AP portable view of the chest. COMPARISON: Comparison is made with prior study dated August 25, 2017. FINDINGS: EKG electrodes are seen. The lungs are clear and expanded. Scattered calcified granulomas. There is no demonstrated pleural abnormality. Sternal cerclage wires are present from a prior sternotomy. Normal mediastinum and good. Normal visualized pulmonary arteries. There is atherosclerotic calcification of the aortic arch with tortuosity. Normal visualized thoracic spine. Normal visualized ribs, clavicles, and shoulders. There is no demonstrated abnormality of the visualized soft tissue structures of the upper abdomen. RAD/Chest 1 View (Portable) IMPRESSION: No acute abnormality is seen. Electronically Signed: Orville Espinosa MD at 10:20 EST Tel [phone], Service support ,
[2017-09-10] MEDS: Lisinopril 40 MG Tablet PO (10:02)
[2017-09-10] MEDS: NIFEdipine 30 MG Tablet PO (10:03)
[2017-09-10] MEDS: Carvedilol 6.25 MG Tablet PO ×2 (10:03→17:17)
[2017-09-10] MEDS: Amiodarone 200 MG Tablet 400 MG PO ×2 (10:03→20:28)
[2017-09-10] MEDS: APIXABAN 5 MG TABLET PO ×2 (10:03→20:28)
[2017-09-10] MEDS: Senna/Docusate Sodium 1 Tablet 2 TABLET PO ×2 (10:03→20:28)
[2017-09-10] MEDS: Budesonide/Formoterol Fumarate 10.2 GM Inhaler 2 PUFF INHALATION ×2 (10:04→20:27)
[2017-09-10] MEDS: Menthol/Lanolin/Calamine/Znox 113 GM Tube 1 APPLIC TOPICAL ×2 (12:21→20:28)
--- NOTE | 2017-09-10 13:05 | PCM.PN.NEU ---
Subjective: Staffed in team meeting. Family at bedside. Questions answered. With Physical Therapy, she is a max assist of two to stand, and three to pivot. 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 With Occupational therapy she is a max assist for grooming, she is able to wash her face and to do some upper body grooming, she is a total assist for her lower body care. There is some trace movement in her triceps area. She has right sided neglect and needs to be cue to look to that side. She is able to sit/balance her trunk for about 25 to 35mins. With speech she is not consistent with her yes/no answers, she will tend to focus on an object or word and not be able to move away right. She is on a thin liquid/ Mechanical soft diet. With nursing she has some b/l rhonchi, she has smoked for the last 20 years only quiting with the stroke, will obtain a Chest xray and schedule aerosols. Will re-team her on Sunday of next week. - Physical Exam General: Alert, Oriented x3, Cooperative HEENT: Atraumatic, PERRLA, EOMI, Normocephalic Neck: Supple, No JVD, Negative Carotid Bruits Lungs: Clear to auscultation, Normal air movement Cardiovascular: Regular rate, No murmurs Abdomen: Bowel Sounds Present, Soft, Non Tender Extremities: No edema, Capillary Refill Less than 3 Seconds Skin: No rashes, No breakdown Musculoskeletal: No Tenderness to Palpation of Joints or Extremities Neurological: Cranial nerves II-XII grossly intact Psych/Mental Status: Normal Affect, Appropriate Vital Signs Temp Pulse Resp BP Pulse Ox 98.9 F 53 L 18 132/55 H 95 09/10/17 09:44 09/10/17 09:44 09/10/17 09:44 09/10/17 09:44 09/10/17 09:44 Oxygen Flow Rate 2 Oxygen Delivery Method Room Air Weight: 78.018 kg Body Mass Index (BMI) 30.4 Finger Stick Blood Glucose 125 Intake and Output for Last 24 Hours 09/08/17 09/09/17 09/10/17 23:59 23:59 23:59 Intake Total 300 / 300 360 / 360 360 / 360 Output Total 400 / 400 Balance 300 / 300 360 / 360 -40 / -40 Active Medications Albuterol Sulfate (Ventolin Hfa (Sp)) 1 puff INHALATION Q4H PRN PRN PRN Reason: SOB &/OR WHEEZING Albuterol Sulfate (Ventolin Aerosols) 2.5 mg INHALATION Q4H.RT [facility] Amiodarone HCl (Cordarone) 400 mg PO BID [facility] Stop: 09/12/17 22:01 Last Admin: 09/10/17 10:03 Dose: 400 mg Amiodarone HCl (Cordarone) 200 mg PO DAILY [facility] Apixaban (Eliquis) 5 mg PO BID [facility] Last Admin: 09/10/17 10:03 Dose: 5 mg Atorvastatin Calcium (Lipitor) 40 mg PO QHS [facility] Last Admin: 09/09/17 21:15 Dose: 40 mg Bisacodyl (Dulcolax) 10 mg RECTAL .PRN X 1 PRN PRN Reason: Constipation Budesonide/Formoterol Fumarate (Symbicort 160/4.5 Mcg Inhaler (Sp)) 2 puff INHALATION BID [facility] Last Admin: 09/10/17 10:04 Dose: 2 puff Calamine/Phenol (Calmoseptine Ointment) 1 applic TOPICAL BID [facility] PRN Reason: Protocol Last Admin: 09/10/17 12:21 Dose: 1 applicatio [facility] Last Admin: 09/10/17 10:03 Dose: 6.25 mg Hydralazine HCl (Apresoline) 75 mg PO Q8 [facility] Last Admin: 09/10/17 05:01 Dose: 75 mg Lisinopril (Zestril) 40 mg PO DAILY [facility] Last Admin: 09/10/17 10:02 Dose: 40 mg Magnesium Hydroxide (Milk Of Magnesia) 30 ml PO .PRN X 1 PRN PRN Reason: Constipation Mirtazapine (Remeron) 15 mg PO QHS [facility] Last Admin: 09/09/17 21:13 Dose: 15 mg Nifedipine (Procardia Xl) 30 mg PO DAILY [facility] Last Admin: 09/10/17 10:03 Dose: 30 mg Senna/Docusate Sodium (Senokot-S, Evie-Colace) 2 tablet PO BID [facility] Last Admin: 09/10/17 10:03 Dose: 2 tablet Assessment/Plan Debility s/p acute ischemic strokes of the L MCA and LICA, Complicated by prior stroke, AVM slips, New onset AFib, right sided deficits., severe aphasia and dysphagia. Goal of rehab is faith of functional independence. Plan: - Physical therapy for gait and balance - Occupational Therapy for ADLs - Speech therapy - As needed analgesics - Bowel protocol - Stroke prevention on ASA, Statin and Lovenox, will transition to Eliquis after CT scan, will then D/C the ASA and the Lovenox - DVT prophylaxis: SCDs, ASA, Lovenox - New onset PAF - to start OAC (eliquis) if repeat CT scan is good. will continue Amio and taper according to direction from [facility]. - CAD s/p prior CABGx3 - asa, statin, Coreg, eunice, Procardia, hydralazine - Prediabetes - sliding scale insulin. A1C 5.8, - Asthma/Emphysema with chronic hypoxic respiratory failure - IS, wean as tolerated. Aerosols PRN. Recent COPD exacerbation, and Flu which was treated with 5 days of steroids and 5 days of Tamiflu - HTN - continue current therapy. - Dysphagia - mechanical soft, thin liquids. - Hx Systolic CHF and cardiomyopathy - continue current meds, avoid overhydration. Monitor for fluid overload. - Nicotine abuse - was smoking up to this stroke admission. Patch if desired. Cessation encouraged. - CT Scan brain, will start Eliquis if no changes are noted. - Scattered Rhonchi => Chest X-ray, and scheduled aerosols
[2017-09-10] MEDS: Albuterol 2.5 MG/3 ML VIAL.NEB. INHALATION ×3 (15:07→23:05)
--- NOTE | 2017-09-10 15:07 | CASEMGMT ---
Team meeting held on this day. Patient present as well as patient family. No discharge date set at this time. Patient to continue with further care and treatment on the Inpatient Rehab Unit. Patient approved 24 days through medicare with a discharge on or before 09/29/17. Patient plans to discharge home with family at time of discharge. Patient family is supportive. Support given. Will continue to follow. Khuhsboo FONG, [employer]
--- NOTE | 2017-09-10 15:57 | PCM.PN.HOSP ---
Subjective: No new complaints. Vitals/I&O's: Vital Signs Temp Pulse Resp BP Pulse Ox 37.2 C 53 L 18 132/55 H 95 09/10/17 09:44 09/10/17 09:44 09/10/17 09:44 09/10/17 09:44 09/10/17 09:44 Oxygen Flow Rate (L/min) 2 Oxygen Delivery Method Room Air Weight: 78.018 kg Body Mass Index (BMI) 30.4 Finger Stick Blood Glucose 125 Intake and Output for Last 24 Hours 09/08/17 09/09/17 09/10/17 23:59 23:59 23:59 Intake Total 300 / 300 360 / 360 360 / 360 Output Total 400 / 400 Balance 300 / 300 360 / 360 -40 / -40 General: Alert, Cooperative, No apparent distress HEENT: Atraumatic, Normocephalic Neck: No Nodes, Thyroid Normal Size and Texture Lungs: Clear to auscultation, Normal air movement, No rhonchi, No wheeze Cardiovascular: Regular rate, Regular Rhythm, Normal S1, Normal S2, No murmurs Abdomen: Bowel Sounds Present, Soft, Non Tender, Non-Distended, No Hepato-splenomegaly Extremities: No edema, No Calf Tenderness Psych/Mental Status: Normal Affect, Appropriate Current Medications Albuterol Sulfate (Ventolin Hfa (Sp)) 1 puff INHALATION Q4H PRN PRN PRN Reason: SOB &/OR WHEEZING Albuterol Sulfate (Ventolin Aerosols) 2.5 mg INHALATION Q4H.RT [facility] Amiodarone HCl (Cordarone) 400 mg PO BID [facility] Stop: 09/12/17 22:01 Last Admin: 09/10/17 10:03 Dose: 400 mg Amiodarone HCl (Cordarone) 200 mg PO DAILY [facility] Apixaban (Eliquis) 5 mg PO BID [facility] Last Admin: 09/10/17 10:03 Dose: 5 mg Atorvastatin Calcium (Lipitor) 40 mg PO QHS [facility] Last Admin: 09/09/17 21:15 Dose: 40 mg Bisacodyl (Dulcolax) 10 mg RECTAL .PRN X 1 PRN PRN Reason: Constipation Budesonide/Formoterol Fumarate (Symbicort 160/4.5 Mcg Inhaler (Sp)) 2 puff INHALATION BID [facility] Last Admin: 09/10/17 10:04 Dose: 2 puff Calamine/Phenol (Calmoseptine Ointment) 1 applic TOPICAL BID [facility] PRN Reason: Protocol Last Admin: 09/10/17 12:21 Dose: 1 applicatio Carvedilol (Coreg) 6.25 mg PO BIDAC [facility] Last Admin: 09/10/17 10:03 Dose: 6.25 mg Hydralazine HCl (Apresoline) 75 mg PO Q8 [facility] Last Admin: 09/10/17 05:01 Dose: 75 mg Lisinopril (Zestril) 40 mg PO DAILY [facility] Last Admin: 09/10/17 10:02 Dose: 40 mg Magnesium Hydroxide (Milk Of Magnesia) 30 ml PO .PRN X 1 PRN PRN Reason: Constipation Mirtazapine (Remeron) 15 mg PO QHS [facility] Last Admin: 09/09/17 21:13 Dose: 15 mg Nifedipine (Procardia Xl) 30 mg PO DAILY [facility] Last Admin: 09/10/17 10:03 Dose: 30 mg Senna/Docusate Sodium (Senokot-S, Evie-Colace) 2 tablet PO BID [facility] Last Admin: 09/10/17 10:03 Dose: 2 tablet Assessment/Plan 1. Acute CVA continue Eliquis, High-intensity statin PT/OT/ST 2. Atrial fibrillation: Amiodarone on Eliquis follow up with cardiology as outpt 3. DVT proph: anticoagulated. Code Visit Inpatient E&M: 43875 Subs Hosp L2
--- NOTE | 2017-09-10 16:01 | PN_ITS ---
Subjective: No new complaints. Vitals/I&O's: Vital Signs Temp Pulse Resp BP Pulse Ox 37.2 C 53 L 18 132/55 H 95 09/10/17 09:44 09/10/17 09:44 09/10/17 09:44 09/10/17 09:44 09/10/17 09:44 Oxygen Flow Rate (L/min) 2 Oxygen Delivery Method Room Air Weight: 78.018 kg Body Mass Index (BMI) 30.4 Finger Stick Blood Glucose 125 Intake and Output for Last 24 Hours 09/08/17 09/09/17 09/10/17 23:59 23:59 23:59 Intake Total 300 / 300 360 / 360 360 / 360 Output Total 400 / 400 Balance 300 / 300 360 / 360 -40 / -40 General: Alert, Cooperative, No apparent distress HEENT: Atraumatic, Normocephalic Neck: No Nodes, Thyroid Normal Size and Texture Lungs: Clear to auscultation, Normal air movement, No rhonchi, No wheeze Cardiovascular: Regular rate, Regular Rhythm, Normal S1, Normal S2, No murmurs Abdomen: Bowel Sounds Present, Soft, Non Tender, Non-Distended, No Hepato- splenomegaly Extremities: No edema, No Calf Tenderness Psych/Mental Status: Normal Affect, Appropriate Current Medications Albuterol Sulfate (Ventolin Hfa (Sp)) 1 puff INHALATION Q4H PRN PRN PRN Reason: SOB &/OR WHEEZING Albuterol Sulfate (Ventolin Aerosols) 2.5 mg INHALATION Q4H.RT [facility] Amiodarone HCl (Cordarone) 400 mg PO BID [facility] Stop: 09/12/17 22:01 Last Admin: 09/10/17 10:03 Dose: 400 mg Amiodarone HCl (Cordarone) 200 mg PO DAILY [facility] Apixaban (Eliquis) 5 mg PO BID [facility] Last Admin: 09/10/17 10:03 Dose: 5 mg Atorvastatin Calcium (Lipitor) 40 mg PO QHS [facility] Last Admin: 09/09/17 21:15 Dose: 40 mg Bisacodyl (Dulcolax) 10 mg RECTAL .PRN X 1 PRN PRN Reason: Constipation Budesonide/Formoterol Fumarate (Symbicort 160/4.5 Mcg Inhaler (Sp)) 2 puff INHALATION BID [facility] Last Admin: 09/10/17 10:04 Dose: 2 puff Calamine/Phenol (Calmoseptine Ointment) 1 applic TOPICAL BID [facility] PRN Reason: Protocol Last Admin: 09/10/17 12:21 Dose: 1 applicatio Carvedilol (Coreg) 6.25 mg PO BIDAC [facility] Last Admin: 09/10/17 10:03 Dose: 6.25 mg Hydralazine HCl (Apresoline) 75 mg PO Q8 [facility] Last Admin: 09/10/17 05:01 Dose: 75 mg Lisinopril (Zestril) 40 mg PO DAILY [facility] Last Admin: 09/10/17 10:02 Dose: 40 mg Magnesium Hydroxide (Milk Of Magnesia) 30 ml PO .PRN X 1 PRN PRN Reason: Constipation Mirtazapine (Remeron) 15 mg PO QHS [facility] Last Admin: 09/09/17 21:13 Dose: 15 mg Nifedipine (Procardia Xl) 30 mg PO DAILY [facility] Last Admin: 09/10/17 10:03 Dose: 30 mg Senna/Docusate Sodium (Senokot-S, Evie-Colace) 2 tablet PO BID [facility] Last Admin: 09/10/17 10:03 Dose: 2 tablet Assessment/Plan 1. Acute CVA * continue Eliquis, High-intensity statin * PT/OT/ST 2. Atrial fibrillation: * Amiodarone * on Eliquis * follow up with cardiology as outpt 3. DVT proph: anticoagulated. Code Visit Inpatient E&M: 40564 Subs Hosp L2
[2017-09-10] MEDS: Mirtazapine 15 MG Tablet PO (20:28)
[2017-09-10] MEDS: Atorvastatin Calcium 40 MG Tablet PO (20:28)
[2017-09-11] VITALS (8 sets, daily range): BP systolic 126–133; BP diastolic 54–61; PULSE 51–58; RESP 16–20; TEMP 36.5–36.8; O2SAT 94–96; BMI 30.4
--- NOTE | 2017-09-11 02:04 | NURSING ---
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
[2017-09-11] MEDS: Albuterol 2.5 MG/3 ML VIAL.NEB. INHALATION (03:21)
[2017-09-11] MEDS: APIXABAN 5 MG TABLET PO ×2 (08:18→21:08)
[2017-09-11] MEDS: Budesonide/Formoterol Fumarate 10.2 GM Inhaler 2 PUFF INHALATION (08:18)
[2017-09-11] MEDS: Carvedilol 6.25 MG Tablet PO ×2 (08:18→17:37)
[2017-09-11] MEDS: Senna/Docusate Sodium 1 Tablet 2 TABLET PO ×2 (08:18→21:08)
[2017-09-11] MEDS: Lisinopril 40 MG Tablet PO (08:18)
[2017-09-11] MEDS: Amiodarone 200 MG Tablet 400 MG PO ×2 (08:19→21:07)
[2017-09-11] MEDS: NIFEdipine 30 MG Tablet PO (08:19)
--- NOTE | 2017-09-11 08:53 | PCM.PN.NEU ---
Subjective: No new complaints. Tolerating therapy. No issues with GI/. D/C Symbicort, patient unable to utilize medication correctly, started DuoNeb, and Pulmicort. - Physical Exam General: Alert, Oriented x3, Cooperative HEENT: Atraumatic, PERRLA, EOMI, Normocephalic Neck: Supple, No JVD, Negative Carotid Bruits Lungs: Clear to auscultation, Normal air movement Cardiovascular: Regular rate, No murmurs Abdomen: Bowel Sounds Present, Soft, Non Tender Extremities: No edema, Capillary Refill Less than 3 Seconds Skin: No rashes, No breakdown Musculoskeletal: No Tenderness to Palpation of Joints or Extremities Neurological: Cranial nerves II-XII grossly intact Psych/Mental Status: Normal Affect, Appropriate Vital Signs Temp Pulse Resp BP Pulse Ox 97.7 F L 55 L 16 129/57 H 95 09/11/17 08:16 09/11/17 08:16 09/11/17 08:16 09/11/17 08:16 09/11/17 08:16 Oxygen Flow Rate (L/min) 2 Oxygen Delivery Method Room Air Weight: 78.018 kg Body Mass Index (BMI) 30.4 Finger Stick Blood Glucose 125 Intake and Output for Last 24 Hours 09/09/17 09/10/17 09/11/17 23:59 23:59 23:59 Intake Total 360 / 360 585 / 585 Output Total 400 / 400 Balance 360 / 360 185 / 185 Active Medications Albuterol Sulfate (Ventolin Hfa (Sp)) 1 puff INHALATION Q4H PRN PRN PRN Reason: SOB &/OR WHEEZING Albuterol Sulfate (Ventolin Aerosols) 2.5 mg INHALATION Q4H.RT [facility] Last Admin: 09/11/17 07:10 Dose: Not Given Amiodarone HCl (Cordarone) 400 mg PO BID [facility] Stop: 09/12/17 22:01 Last Admin: 09/11/17 08:19 Dose: 400 mg Amiodarone HCl (Cordarone) 200 mg PO DAILY [facility] Apixaban (Eliquis) 5 mg PO BID [facility] Last Admin: 09/11/17 08:18 Dose: 5 mg Atorvastatin Calcium (Lipitor) 40 mg PO QHS [facility] Last Admin: 09/10/17 20:28 Dose: 40 mg Bisacodyl (Dulcolax) 10 mg RECTAL .PRN X 1 PRN PRN Reason: Constipation Budesonide/Formoterol Fumarate (Symbicort 160/4.5 Mcg Inhaler (Sp)) 2 puff INHALATION BID [facility] Last Admin: 09/11/17 08:18 Dose: 2 puff Calamine/Phenol (Calmoseptine Ointment) 1 applic TOPICAL BID [facility] PRN Reason: Protocol Last Admin: 09/10/17 20:28 Dose: 1 applicatio Carvedilol (Coreg) 6.25 mg PO BIDAC [facility] Last Admin: 09/11/17 08:18 Dose: 6.25 mg Hydralazine HCl (Apresoline) 75 mg PO Q8 [facility] Last Admin: 09/11/17 05:53 Dose: 75 mg Lisinopril (Zestril) 40 mg PO DAILY [facility] Last Admin: 09/11/17 08:18 Dose: 40 mg Magnesium Hydroxide (Milk Of Magnesia) 30 ml PO .PRN X 1 PRN PRN Reason: Constipation Mirtazapine (Remeron) 15 mg PO QHS [facility] Last Admin: 09/10/17 20:28 Dose: 15 mg Nifedipine (Procardia Xl) 30 mg PO DAILY [facility] Last Admin: 09/11/17 08:19 Dose: 30 mg Senna/Docusate Sodium (Senokot-S, Evie-Colace) 2 tablet PO BID [facility] Last Admin: 09/11/17 08:18 Dose: 2 tablet Assessment/Plan Debility s/p acute ischemic strokes of the L MCA and LICA, Complicated by prior stroke, AVM slips, New onset AFib, right sided deficits., severe aphasia and dysphagia. Goal of rehab is protestant of functional independence. Plan: - Physical therapy for gait and balance - Occupational Therapy for ADLs - Speech therapy - As needed analgesics - Bowel protocol - Stroke prevention on ASA, Statin and Lovenox, will transition to Eliquis after CT scan, will then D/C the ASA and the Lovenox - DVT prophylaxis: SCDs, ASA, Lovenox - New onset PAF - to start OAC (eliquis) if repeat CT scan is good. will continue Amio and taper according to direction from [facility]. - CAD s/p prior CABGx3 - asa, statin, Coreg, eunice, Procardia, hydralazine - Prediabetes - sliding scale insulin. A1C 5.8, - Asthma/Emphysema with chronic hypoxic respiratory failure - IS, wean as tolerated. Aerosols PRN. Recent COPD exacerbation, and Flu which was treated with 5 days of steroids and 5 days of Tamiflu - HTN - continue current therapy. - Dysphagia - mechanical soft, thin liquids. - Hx Systolic CHF and cardiomyopathy - continue current meds, avoid overhydration. Monitor for fluid overload. - Nicotine abuse - was smoking up to this stroke admission. Patch if desired. Cessation encouraged. - CT Scan brain, will start Eliquis if no changes are noted. - Scattered Rhonchi => Chest X-ray, and scheduled aerosols, chest x-ray negative for infiltrates - D/C the Symbicort, patient unable to utilize correctly, started DuoNeb and Pulmicort
--- NOTE | 2017-09-11 08:56 | PN.NEURO_ITS ---
Subjective: No new complaints. Tolerating therapy. No issues with GI/. D/C Symbicort, patient unable to utilize medication correctly, started DuoNeb, and Pulmicort. - Physical Exam General: Alert, Oriented x3, Cooperative HEENT: Atraumatic, PERRLA, EOMI, Normocephalic Neck: Supple, No JVD, Negative Carotid Bruits Lungs: Clear to auscultation, Normal air movement Cardiovascular: Regular rate, No murmurs Abdomen: Bowel Sounds Present, Soft, Non Tender Extremities: No edema, Capillary Refill Less than 3 Seconds Skin: No rashes, No breakdown Musculoskeletal: No Tenderness to Palpation of Joints or Extremities Neurological: Cranial nerves II-XII grossly intact Psych/Mental Status: Normal Affect, Appropriate Vital Signs Temp Pulse Resp BP Pulse Ox 97.7 F L 55 L 16 129/57 H 95 09/11/17 08:16 09/11/17 08:16 09/11/17 08:16 09/11/17 08:16 09/11/17 08:16 Oxygen Flow Rate (L/min) 2 Oxygen Delivery Method Room Air Weight: 78.018 kg Body Mass Index (BMI) 30.4 Finger Stick Blood Glucose 125 Intake and Output for Last 24 Hours 09/09/17 09/10/17 09/11/17 23:59 23:59 23:59 Intake Total 360 / 360 585 / 585 Output Total 400 / 400 Balance 360 / 360 185 / 185 Active Medications Albuterol Sulfate (Ventolin Hfa (Sp)) 1 puff INHALATION Q4H PRN PRN PRN Reason: SOB &/OR WHEEZING Albuterol Sulfate (Ventolin Aerosols) 2.5 mg INHALATION Q4H.RT [facility] Last Admin: 09/11/17 07:10 Dose: Not Given Amiodarone HCl (Cordarone) 400 mg PO BID [facility] Stop: 09/12/17 22:01 Last Admin: 09/11/17 08:19 Dose: 400 mg Amiodarone HCl (Cordarone) 200 mg PO DAILY [facility] Apixaban (Eliquis) 5 mg PO BID [facility] Last Admin: 09/11/17 08:18 Dose: 5 mg Atorvastatin Calcium (Lipitor) 40 mg PO QHS [facility] Last Admin: 09/10/17 20:28 Dose: 40 mg Bisacodyl (Dulcolax) 10 mg RECTAL .PRN X 1 PRN PRN Reason: Constipation Budesonide/Formoterol Fumarate (Symbicort 160/4.5 Mcg Inhaler (Sp)) 2 puff INHALATION BID [facility] Last Admin: 09/11/17 08:18 Dose: 2 puff Calamine/Phenol (Calmoseptine Ointment) 1 applic TOPICAL BID [facility] PRN Reason: Protocol Last Admin: 09/10/17 20:28 Dose: 1 applicatio Carvedilol (Coreg) 6.25 mg PO BIDAC [facility] Last Admin: 09/11/17 08:18 Dose: 6.25 mg Hydralazine HCl (Apresoline) 75 mg PO Q8 [facility] Last Admin: 09/11/17 05:53 Dose: 75 mg Lisinopril (Zestril) 40 mg PO DAILY [facility] Last Admin: 09/11/17 08:18 Dose: 40 mg Magnesium Hydroxide (Milk Of Magnesia) 30 ml PO .PRN X 1 PRN PRN Reason: Constipation Mirtazapine (Remeron) 15 mg PO QHS [facility] Last Admin: 09/10/17 20:28 Dose: 15 mg Nifedipine (Procardia Xl) 30 mg PO DAILY [facility] Last Admin: 09/11/17 08:19 Dose: 30 mg Senna/Docusate Sodium (Senokot-S, Evie-Colace) 2 tablet PO BID [facility] Last Admin: 09/11/17 08:18 Dose: 2 tablet Assessment/Plan Debility s/p acute ischemic strokes of the L MCA and LICA, Complicated by prior stroke, AVM slips, New onset AFib, right sided deficits., severe aphasia and dysphagia. Goal of rehab is judaism of functional independence. Plan: - Physical therapy for gait and balance - Occupational Therapy for ADLs - Speech therapy - As needed analgesics - Bowel protocol - Stroke prevention on ASA, Statin and Lovenox, will transition to Eliquis after CT scan, will then D/C the ASA and the Lovenox - DVT prophylaxis: SCDs, ASA, Lovenox - New onset PAF - to start OAC (eliquis) if repeat CT scan is good. will continue Amio and taper according to direction from [facility]. - CAD s/p prior CABGx3 - asa, statin, Coreg, eunice, Procardia, hydralazine - Prediabetes - sliding scale insulin. A1C 5.8, - Asthma/Emphysema with chronic hypoxic respiratory failure - IS, wean as tolerated. Aerosols PRN. Recent COPD exacerbation, and Flu which was treated with 5 days of steroids and 5 days of Tamiflu - HTN - continue current therapy. - Dysphagia - mechanical soft, thin liquids. - Hx Systolic CHF and cardiomyopathy - continue current meds, avoid overhydration. Monitor for fluid overload. - Nicotine abuse - was smoking up to this stroke admission. Patch if desired. Cessation encouraged. - CT Scan brain, will start Eliquis if no changes are noted. - Scattered Rhonchi => Chest X-ray, and scheduled aerosols, chest x-ray negative for infiltrates - D/C the Symbicort, patient unable to utilize correctly, started DuoNeb and Pulmicort
[2017-09-11] MEDS: Menthol/Lanolin/Calamine/Znox 113 GM Tube 1 APPLIC TOPICAL ×2 (11:37→21:09)
--- NOTE | 2017-09-11 14:01 | PCM.PN.HOSP ---
Subjective: tired after physical therapy today. Vitals/I&O's: Vital Signs Temp Pulse Resp BP Pulse Ox 36.5 C L 53 L 16 133/61 H 95 09/11/17 08:16 09/11/17 13:26 09/11/17 08:16 09/11/17 13:26 09/11/17 08:16 Oxygen Flow Rate (L/min) 2 Oxygen Delivery Method Room Air Weight: 78.018 kg Body Mass Index (BMI) 30.4 Finger Stick Blood Glucose 125 Intake and Output for Last 24 Hours 09/09/17 09/10/17 09/11/17 23:59 23:59 23:59 Intake Total 360 / 360 585 / 585 620 / 620 Output Total 400 / 400 Balance 360 / 360 185 / 185 620 / 620 General: Alert, Cooperative, No apparent distress HEENT: Atraumatic, Normocephalic Neck: No Nodes, Thyroid Normal Size and Texture Lungs: Clear to auscultation, Normal air movement, No rhonchi, No wheeze Cardiovascular: Regular rate, Regular Rhythm, Normal S1, Normal S2, No murmurs Abdomen: Bowel Sounds Present, Soft, Non Tender, Non-Distended, No Hepato-splenomegaly Extremities: No edema, No Calf Tenderness Psych/Mental Status: Normal Affect, Appropriate Current Medications Albuterol Sulfate (Ventolin Hfa (Sp)) 1 puff INHALATION Q4H PRN PRN PRN Reason: SOB &/OR WHEEZING Albuterol/Ipratropium (Duoneb) 3 ml INHALATION Q4HWA.RT [facility] Last Admin: 09/11/17 11:00 Dose: Not Given Amiodarone HCl (Cordarone) 400 mg PO BID [facility] Stop: 09/12/17 22:01 Last Admin: 09/11/17 08:19 Dose: 400 mg Amiodarone HCl (Cordarone) 200 mg PO DAILY [facility] Apixaban (Eliquis) 5 mg PO BID [facility] Last Admin: 09/11/17 08:18 Dose: 5 mg Atorvastatin Calcium (Lipitor) 40 mg PO QHS [facility] Last Admin: 09/10/17 20:28 Dose: 40 mg Bisacodyl (Dulcolax) 10 mg RECTAL .PRN X 1 PRN PRN Reason: Constipation Budesonide (Pulmicort Aerosol) 0.5 mg INHALATION Q12H.RT [facility] Calamine/Phenol (Calmoseptine Ointment) 1 applic TOPICAL BID [facility] PRN Reason: Protocol Last Admin: 09/11/17 11:37 Dose: 1 applicatio Carvedilol (Coreg) 6.25 mg PO BIDAC [facility] Last Admin: 09/11/17 08:18 Dose: 6.25 mg Hydralazine HCl (Apresoline) 75 mg PO Q8 [facility] Last Admin: 09/11/17 13:26 Dose: 75 mg Lisinopril (Zestril) 40 mg PO DAILY [facility] Last Admin: 09/11/17 08:18 Dose: 40 mg Magnesium Hydroxide (Milk Of Magnesia) 30 ml PO .PRN X 1 PRN PRN Reason: Constipation Mirtazapine (Remeron) 15 mg PO QHS [facility] Last Admin: 09/10/17 20:28 Dose: 15 mg Nifedipine (Procardia Xl) 30 mg PO DAILY [facility] Last Admin: 09/11/17 08:19 Dose: 30 mg Senna/Docusate Sodium (Senokot-S, Evie-Colace) 2 tablet PO BID [facility] Last Admin: 09/11/17 08:18 Dose: 2 tablet Assessment/Plan 1. Acute CVA continue Eliquis, High-intensity statin PT/OT/ST 2. Atrial fibrillation: Amiodarone on Eliquis follow up with cardiology as outpt 3. DVT proph: anticoagulated. Code Visit Inpatient E&M: 20885 Subs Hosp L2
--- NOTE | 2017-09-11 14:02 | PN_ITS ---
Subjective: tired after physical therapy today. Vitals/I&O's: Vital Signs Temp Pulse Resp BP Pulse Ox 36.5 C L 53 L 16 133/61 H 95 09/11/17 08:16 09/11/17 13:26 09/11/17 08:16 09/11/17 13:26 09/11/17 08:16 Oxygen Flow Rate (L/min) 2 Oxygen Delivery Method Room Air Weight: 78.018 kg Body Mass Index (BMI) 30.4 Finger Stick Blood Glucose 125 Intake and Output for Last 24 Hours 09/09/17 09/10/17 09/11/17 23:59 23:59 23:59 Intake Total 360 / 360 585 / 585 620 / 620 Output Total 400 / 400 Balance 360 / 360 185 / 185 620 / 620 General: Alert, Cooperative, No apparent distress HEENT: Atraumatic, Normocephalic Neck: No Nodes, Thyroid Normal Size and Texture Lungs: Clear to auscultation, Normal air movement, No rhonchi, No wheeze Cardiovascular: Regular rate, Regular Rhythm, Normal S1, Normal S2, No murmurs Abdomen: Bowel Sounds Present, Soft, Non Tender, Non-Distended, No Hepato- splenomegaly Extremities: No edema, No Calf Tenderness Psych/Mental Status: Normal Affect, Appropriate Current Medications Albuterol Sulfate (Ventolin Hfa (Sp)) 1 puff INHALATION Q4H PRN PRN PRN Reason: SOB &/OR WHEEZING Albuterol/Ipratropium (Duoneb) 3 ml INHALATION Q4HWA.RT [facility] Last Admin: 09/11/17 11:00 Dose: Not Given Amiodarone HCl (Cordarone) 400 mg PO BID [facility] Stop: 09/12/17 22:01 Last Admin: 09/11/17 08:19 Dose: 400 mg Amiodarone HCl (Cordarone) 200 mg PO DAILY [facility] Apixaban (Eliquis) 5 mg PO BID [facility] Last Admin: 09/11/17 08:18 Dose: 5 mg Atorvastatin Calcium (Lipitor) 40 mg PO QHS [facility] Last Admin: 09/10/17 20:28 Dose: 40 mg Bisacodyl (Dulcolax) 10 mg RECTAL .PRN X 1 PRN PRN Reason: Constipation Budesonide (Pulmicort Aerosol) 0.5 mg INHALATION Q12H.RT [facility] Calamine/Phenol (Calmoseptine Ointment) 1 applic TOPICAL BID [facility] PRN Reason: Protocol Last Admin: 09/11/17 11:37 Dose: 1 applicatio Carvedilol (Coreg) 6.25 mg PO BIDAC [facility] Last Admin: 09/11/17 08:18 Dose: 6.25 mg Hydralazine HCl (Apresoline) 75 mg PO Q8 [facility] Last Admin: 09/11/17 13:26 Dose: 75 mg Lisinopril (Zestril) 40 mg PO DAILY [facility] Last Admin: 09/11/17 08:18 Dose: 40 mg Magnesium Hydroxide (Milk Of Magnesia) 30 ml PO .PRN X 1 PRN PRN Reason: Constipation Mirtazapine (Remeron) 15 mg PO QHS [facility] Last Admin: 09/10/17 20:28 Dose: 15 mg Nifedipine (Procardia Xl) 30 mg PO DAILY [facility] Last Admin: 09/11/17 08:19 Dose: 30 mg Senna/Docusate Sodium (Senokot-S, Evie-Colace) 2 tablet PO BID [facility] Last Admin: 09/11/17 08:18 Dose: 2 tablet Assessment/Plan 1. Acute CVA * continue Eliquis, High-intensity statin * PT/OT/ST 2. Atrial fibrillation: * Amiodarone * on Eliquis * follow up with cardiology as outpt 3. DVT proph: anticoagulated. Code Visit Inpatient E&M: 49360 Subs Hosp L2
[2017-09-11] MEDS: Ipratropium/Albuterol Sulfate 3 ML AMPUL.NEB INHALATION ×2 (15:25→19:56)
[2017-09-11] MEDS: Budesonide Respules 0.5 MG/2 ML AMPUL.NEB. INHALATION (19:56)
[2017-09-11] MEDS: Mirtazapine 15 MG Tablet PO (21:07)
[2017-09-11] MEDS: Atorvastatin Calcium 40 MG Tablet PO (21:08)
[2017-09-12] VITALS (11 sets, daily range): BP systolic 118–134; BP diastolic 51–78; PULSE 51–70; RESP 16–18; TEMP 36.6–36.8; O2SAT 94–95; BMI 30.4
--- NOTE | 2017-09-12 04:19 | NURSING ---
Reviewed and agree with SET UP OPERATOR documentation.
[2017-09-12] MEDS: Lisinopril 40 MG Tablet PO (08:37)
[2017-09-12] MEDS: Senna/Docusate Sodium 1 Tablet 2 TABLET PO ×2 (08:37→21:16)
[2017-09-12] MEDS: NIFEdipine 30 MG Tablet PO (08:37)
[2017-09-12] MEDS: Amiodarone 200 MG Tablet 400 MG PO ×2 (08:37→21:17)
[2017-09-12] MEDS: Carvedilol 6.25 MG Tablet PO ×2 (08:37→16:01)
[2017-09-12] MEDS: APIXABAN 5 MG TABLET PO ×2 (08:37→21:17)
[2017-09-12] MEDS: Menthol/Lanolin/Calamine/Znox 113 GM Tube 1 APPLIC TOPICAL ×2 (08:39→21:17)
--- NOTE | 2017-09-12 08:50 | PCM.PN.NEU ---
Subjective: Patient seen and examined. No events over night. Tolerating therapy. Patient continues to have right side hemiparesis, she is on a Mechanical soft diet with thin liquids. No issues with GI/. - Physical Exam General: Alert, Oriented x3, Cooperative HEENT: Atraumatic, PERRLA, EOMI, Normocephalic Neck: Supple, No JVD, Negative Carotid Bruits Lungs: Clear to auscultation, Normal air movement Cardiovascular: Regular rate, No murmurs Abdomen: Bowel Sounds Present, Soft, Non Tender Extremities: No edema, Capillary Refill Less than 3 Seconds Skin: No rashes, No breakdown Musculoskeletal: No Tenderness to Palpation of Joints or Extremities Neurological: Cranial nerves II-XII grossly intact Psych/Mental Status: Normal Affect, Appropriate Vital Signs Temp Pulse Resp BP Pulse Ox 97.9 F 70 18 133/59 H 94 09/12/17 07:53 09/12/17 07:53 09/12/17 07:53 09/12/17 07:53 09/12/17 07:53 Oxygen Flow Rate (L/min) 2 Oxygen Delivery Method Room Air Weight: 78.018 kg Body Mass Index (BMI) 30.4 Finger Stick Blood Glucose 125 Intake and Output for Last 24 Hours 09/10/17 09/11/17 09/12/17 23:59 23:59 23:59 Intake Total 585 / 585 860 / 860 Output Total 400 / 400 Balance 185 / 185 860 / 860 Active Medications Albuterol Sulfate (Ventolin Hfa (Sp)) 1 puff INHALATION Q4H PRN PRN PRN Reason: SOB &/OR WHEEZING Albuterol/Ipratropium (Duoneb) 3 ml INHALATION Q4HWA.RT [facility] Last Admin: 09/11/17 19:56 Dose: 3 ml Amiodarone HCl (Cordarone) 400 mg PO BID [facility] Stop: 09/12/17 22:01 Last Admin: 09/12/17 08:37 Dose: 400 mg Amiodarone HCl (Cordarone) 200 mg PO DAILY [facility] Apixaban (Eliquis) 5 mg PO BID [facility] Last Admin: 09/12/17 08:37 Dose: 5 mg Atorvastatin Calcium (Lipitor) 40 mg PO QHS [facility] Last Admin: 09/11/17 21:08 Dose: 40 mg Bisacodyl (Dulcolax) 10 mg RECTAL .PRN X 1 PRN PRN Reason: Constipation Budesonide (Pulmicort Aerosol) 0.5 mg INHALATION Q12H.RT [facility] Last Admin: 09/11/17 19:56 Dose: 0.5 mg Calamine/Phenol (Calmoseptine Ointment) 1 applic TOPICAL BID [facility] PRN Reason: Protocol Last Admin: 09/12/17 08:39 Dose: 1 applicatio Carvedilol (Coreg) 6.25 mg PO BIDAC [facility] Last Admin: 09/12/17 08:37 Dose: 6.25 mg Hydralazine HCl (Apresoline) 75 mg PO Q8 [facility] Last Admin: 09/12/17 05:34 Dose: 75 mg Lisinopril (Zestril) 40 mg PO DAILY [facility] Last Admin: 09/12/17 08:37 Dose: 40 mg Magnesium Hydroxide (Milk Of Magnesia) 30 ml PO .PRN X 1 PRN PRN Reason: Constipation Mirtazapine (Remeron) 15 mg PO QHS [facility] Last Admin: 09/11/17 21:07 Dose: 15 mg Nifedipine (Procardia Xl) 30 mg PO DAILY [facility] Last Admin: 09/12/17 08:37 Dose: 30 mg Senna/Docusate Sodium (Senokot-S, Evie-Colace) 2 tablet PO BID [facility] Last Admin: 09/12/17 08:37 Dose: 2 tablet Assessment/Plan Debility s/p acute ischemic strokes of the L MCA and LICA, Complicated by prior stroke, AVM slips, New onset AFib, right sided deficits., severe aphasia and dysphagia. Goal of rehab is latter day of functional independence. Plan: - Physical therapy for gait and balance - Occupational Therapy for ADLs - Speech therapy - As needed analgesics - Bowel protocol - Stroke prevention on ASA, Statin and Lovenox, will transition to Eliquis after CT scan, will then D/C the ASA and the Lovenox - DVT prophylaxis: SCDs, ASA, Lovenox - New onset PAF - to start OAC (eliquis) if repeat CT scan is good. will continue Amio and taper according to direction from [facility]. - CAD s/p prior CABGx3 - asa, statin, Coreg, eunice, Procardia, hydralazine - Prediabetes - sliding scale insulin. A1C 5.8, - Asthma/Emphysema with chronic hypoxic respiratory failure - IS, wean as tolerated. Aerosols PRN. Recent COPD exacerbation, and Flu which was treated with 5 days of steroids and 5 days of Tamiflu - HTN - continue current therapy. - Dysphagia - mechanical soft, thin liquids. - Hx Systolic CHF and cardiomyopathy - continue current meds, avoid overhydration. Monitor for fluid overload. - Nicotine abuse - was smoking up to this stroke admission. Patch if desired. Cessation encouraged. - CT Scan brain, will start Eliquis if no changes are noted. - Scattered Rhonchi => Chest X-ray, and scheduled aerosols, chest x-ray negative for infiltrates - D/C the Symbicort, patient unable to utilize correctly, started DuoNeb and Pulmicort
[2017-09-12] MEDS: Ipratropium/Albuterol Sulfate 3 ML AMPUL.NEB INHALATION ×3 (11:20→18:22)
[2017-09-12] MEDS: Budesonide Respules 0.5 MG/2 ML AMPUL.NEB. INHALATION (18:22)
[2017-09-12] MEDS: Mirtazapine 15 MG Tablet PO (21:17)
[2017-09-12] MEDS: Atorvastatin Calcium 40 MG Tablet PO (21:17)
[2017-09-13] VITALS (8 sets, daily range): BP systolic 129–149; BP diastolic 55–73; PULSE 55–66; RESP 17–18; TEMP 36.8–37.1; O2SAT 93; BMI 30.4
[2017-09-13] MEDS: Budesonide Respules 0.5 MG/2 ML AMPUL.NEB. INHALATION (06:50)
[2017-09-13] MEDS: Ipratropium/Albuterol Sulfate 3 ML AMPUL.NEB INHALATION (06:50)
[2017-09-13] MEDS: Lisinopril 40 MG Tablet PO (08:33)
[2017-09-13] MEDS: Carvedilol 6.25 MG Tablet PO ×2 (08:33→17:27)
[2017-09-13] MEDS: Senna/Docusate Sodium 1 Tablet 2 TABLET PO (08:33)
[2017-09-13] MEDS: Amiodarone 200 MG Tablet PO (08:33)
[2017-09-13] MEDS: APIXABAN 5 MG TABLET PO ×2 (08:33→21:18)
[2017-09-13] MEDS: NIFEdipine 30 MG Tablet PO (08:33)
[2017-09-13] MEDS: Menthol/Lanolin/Calamine/Znox 113 GM Tube 1 APPLIC TOPICAL ×2 (08:36→22:23)
--- NOTE | 2017-09-13 12:25 | PN.NEURO_ITS ---
Subjective: Patient seen and examined. Tolerating therapy. Denies any shortness of breath or pain. No issues with /GI. Paperwork was signed to make patient a DNR-[facility]. - Physical Exam General: Alert, Oriented x3, Cooperative HEENT: Atraumatic, PERRLA, EOMI, Normocephalic Neck: Supple, No JVD, Negative Carotid Bruits Lungs: Clear to auscultation, Normal air movement Cardiovascular: Regular rate, No murmurs Abdomen: Bowel Sounds Present, Soft, Non Tender Extremities: No edema, Capillary Refill Less than 3 Seconds Skin: No rashes, No breakdown Musculoskeletal: No Tenderness to Palpation of Joints or Extremities Neurological: Cranial nerves II-XII grossly intact Psych/Mental Status: Normal Affect, Appropriate Vital Signs Temp Pulse Resp BP Pulse Ox 98.7 F 66 17 146/73 H 93 09/13/17 07:37 09/13/17 07:37 09/13/17 07:37 09/13/17 07:37 09/13/17 07:37 Oxygen Flow Rate (L/min) 2 Oxygen Delivery Method Room Air Weight: 81 kg Body Mass Index (BMI) 30.4 Finger Stick Blood Glucose 125 Intake and Output for Last 24 Hours 09/11/17 09/12/17 09/13/17 23:59 23:59 23:59 Intake Total 860 / 860 80 / 80 Balance 860 / 860 80 / 80 Active Medications Albuterol Sulfate (Ventolin Hfa (Sp)) 1 puff INHALATION Q4H PRN PRN PRN Reason: SOB &/OR WHEEZING Albuterol/Ipratropium (Duoneb) 3 ml INHALATION Q4HWA.RT [facility] Last Admin: 09/13/17 06:50 Dose: 3 ml Amiodarone HCl (Cordarone) 200 mg PO DAILY [facility] Last Admin: 09/13/17 08:33 Dose: 200 mg Apixaban (Eliquis) 5 mg PO BID [facility] Last Admin: 09/13/17 08:33 Dose: 5 mg Atorvastatin Calcium (Lipitor) 40 mg PO QHS [facility] Last Admin: 09/12/17 21:17 Dose: 40 mg Bisacodyl (Dulcolax) 10 mg RECTAL .PRN X 1 PRN PRN Reason: Constipation Budesonide (Pulmicort Aerosol) 0.5 mg INHALATION Q12H.RT [facility] Last Admin: 09/13/17 06:50 Dose: 0.5 mg Calamine/Phenol (Calmoseptine Ointment) 1 applic TOPICAL BID [facility] PRN Reason: Protocol Last Admin: 09/13/17 08:36 Dose: 1 applicatio Carvedilol (Coreg) 6.25 mg PO BIDAC [facility]S [facility] Last Admin: 09/13/17 08:33 Dose: 6.25 mg Hydralazine HCl (Apresoline) 75 mg PO Q8 [facility] Last Admin: 09/13/17 05:03 Dose: 75 mg Lisinopril (Zestril) 40 mg PO DAILY [facility] Last Admin: 09/13/17 08:33 Dose: 40 mg Magnesium Hydroxide (Milk Of Magnesia) 30 ml PO .PRN X 1 PRN PRN Reason: Constipation Mirtazapine (Remeron) 15 mg PO QHS [facility] Last Admin: 09/12/17 21:17 Dose: 15 mg Nifedipine (Procardia Xl) 30 mg PO DAILY [facility] Last Admin: 09/13/17 08:33 Dose: 30 mg Senna/Docusate Sodium (Senokot-S, Evie-Colace) 2 tablet PO BID [facility] Last Admin: 09/13/17 08:33 Dose: 2 tablet Assessment/Plan Debility s/p acute ischemic strokes of the L MCA and LICA, Complicated by prior stroke, AVM slips, New onset AFib, right sided deficits., severe aphasia and dysphagia. Goal of rehab is [place] of functional independence. Plan: - Physical therapy for gait and balance - Occupational Therapy for ADLs - Speech therapy - As needed analgesics - Bowel protocol - Stroke prevention on ASA, Statin and Lovenox, will transition to Eliquis after CT scan, will then D/C the ASA and the Lovenox - DVT prophylaxis: SCDs, ASA, Lovenox - New onset PAF - to start OAC (eliquis) if repeat CT scan is good. will continue Amio and taper according to direction from [facility]. - CAD s/p prior CABGx3 - asa, statin, Coreg, eunice, Procardia, hydralazine - Prediabetes - sliding scale insulin. A1C 5.8, - Asthma/Emphysema with chronic hypoxic respiratory failure - IS, wean as tolerated. Aerosols PRN. Recent COPD exacerbation, and Flu which was treated with 5 days of steroids and 5 days of Tamiflu - HTN - continue current therapy. - Dysphagia - mechanical soft, thin liquids. - Hx Systolic CHF and cardiomyopathy - continue current meds, avoid overhydration. Monitor for fluid overload. - Nicotine abuse - was smoking up to this stroke admission. Patch if desired. Cessation encouraged. - CT Scan brain, will start Eliquis if no changes are noted. - Scattered Rhonchi => Chest X-ray, and scheduled aerosols, chest x-ray negative for infiltrates - D/C the Symbicort, patient unable to utilize correctly, started DuoNeb and Pulmicort - Patient is a DNR-[facility]
[2017-09-13] MEDS: Mirtazapine 15 MG Tablet PO (21:18)
[2017-09-13] MEDS: Atorvastatin Calcium 40 MG Tablet PO (21:18)
[2017-09-14] VITALS (8 sets, daily range): BP systolic 107–148; BP diastolic 60–67; PULSE 51–95; RESP 16–17; TEMP 36.8–37.1; O2SAT 93–95; BMI 30.4
[2017-09-14] MEDS: Budesonide Respules 0.5 MG/2 ML AMPUL.NEB. INHALATION (06:59)
[2017-09-14] MEDS: Ipratropium/Albuterol Sulfate 3 ML AMPUL.NEB INHALATION (06:59)
[2017-09-14] MEDS: Lisinopril 40 MG Tablet PO (08:21)
[2017-09-14] MEDS: Amiodarone 200 MG Tablet PO (08:22)
[2017-09-14] MEDS: NIFEdipine 30 MG Tablet PO (08:22)
[2017-09-14] MEDS: Senna/Docusate Sodium 1 Tablet 2 TABLET PO ×2 (08:22→21:07)
[2017-09-14] MEDS: APIXABAN 5 MG TABLET PO ×2 (08:22→21:07)
[2017-09-14] MEDS: Carvedilol 6.25 MG Tablet PO ×2 (08:22→16:10)
[2017-09-14] MEDS: Menthol/Lanolin/Calamine/Znox 113 GM Tube 1 APPLIC TOPICAL ×2 (10:02→21:07)
--- NOTE | 2017-09-14 15:19 | PN.NEURO_ITS ---
Subjective: Patient seen lying quietly in bed resting. Deneis any shortness of breath or chest pains. No movement noted in right leg or arm. Tolerating therapy. No issues with GI/. - Physical Exam General: Alert, Oriented x3, Cooperative HEENT: Atraumatic, PERRLA, EOMI, Normocephalic Neck: Supple, No JVD, Negative Carotid Bruits Lungs: Clear to auscultation, Normal air movement Cardiovascular: Regular rate, No murmurs Abdomen: Bowel Sounds Present, Soft, Non Tender Extremities: No edema, Capillary Refill Less than 3 Seconds Skin: No rashes, No breakdown Musculoskeletal: No Tenderness to Palpation of Joints or Extremities Neurological: Cranial nerves II-XII grossly intact Psych/Mental Status: Normal Affect, Appropriate Vital Signs Temp Pulse Resp BP Pulse Ox 98.2 F 60 16 143/67 H 93 09/14/17 07:50 09/14/17 07:50 09/14/17 07:50 09/14/17 07:50 09/14/17 07:50 Oxygen Flow Rate (L/min) 2 Oxygen Delivery Method Room Air Weight: 81 kg Body Mass Index (BMI) 30.4 Finger Stick Blood Glucose 125 Intake and Output for Last 24 Hours 09/12/17 09/13/17 09/14/17 23:59 23:59 23:59 Intake Total 140 / 140 360 / 360 Balance 140 / 140 360 / 360 Active Medications Albuterol Sulfate (Ventolin Hfa (Sp)) 1 puff INHALATION Q4H PRN PRN PRN Reason: SOB &/OR WHEEZING Albuterol/Ipratropium (Duoneb) 3 ml INHALATION Q4HWA.RT [facility] Last Admin: 09/14/17 11:10 Dose: Not Given Amiodarone HCl (Cordarone) 200 mg PO DAILY [facility] Last Admin: 09/14/17 08:22 Dose: 200 mg Apixaban (Eliquis) 5 mg PO BID [facility] Last Admin: 09/14/17 08:22 Dose: 5 mg Atorvastatin Calcium (Lipitor) 40 mg PO QHS [facility] Last Admin: 09/13/17 21:18 Dose: 40 mg Bisacodyl (Dulcolax) 10 mg RECTAL .PRN X 1 PRN PRN Reason: Constipation Budesonide (Pulmicort Aerosol) 0.5 mg INHALATION Q12H.RT [facility] Last Admin: 09/14/17 06:59 Dose: 0.5 mg Calamine/Phenol (Calmoseptine Ointment) 1 applic TOPICAL BID [facility] PRN Reason: Protocol Last Admin: 09/14/17 10:02 Dose: 1 applicatio Carvedilol (Coreg) 6.25 mg PO BIDAC [facility] Last Admin: 09/14/17 08:22 Dose: 6.25 mg Hydralazine HCl (Apresoline) 75 mg PO Q8 [facility] Last Admin: 09/14/17 05:29 Dose: 75 mg Lisinopril (Zestril) 40 mg PO DAILY [facility] Last Admin: 09/14/17 08:21 Dose: 40 mg Magnesium Hydroxide (Milk Of Magnesia) 30 ml PO .PRN X 1 PRN PRN Reason: Constipation Mirtazapine (Remeron) 15 mg PO QHS [facility] Last Admin: 09/13/17 21:18 Dose: 15 mg Nifedipine (Procardia Xl) 30 mg PO DAILY [facility] Last Admin: 09/14/17 08:22 Dose: 30 mg Senna/Docusate Sodium (Senokot-S, Evie-Colace) 2 tablet PO BID [facility] Last Admin: 09/14/17 08:22 Dose: 2 tablet Assessment/Plan Debility s/p acute ischemic strokes of the L MCA and LICA, Complicated by prior stroke, AVM slips, New onset AFib, right sided deficits., severe aphasia and dysphagia. Goal of rehab is [place] of functional independence. Plan: - Physical therapy for gait and balance - Occupational Therapy for ADLs - Speech therapy - As needed analgesics - Bowel protocol - Stroke prevention on ASA, Statin and Lovenox, will transition to Eliquis after CT scan, will then D/C the ASA and the Lovenox - DVT prophylaxis: SCDs, ASA, Lovenox - New onset PAF - to start OAC (eliquis) if repeat CT scan is good. will continue Amio and taper according to direction from [facility]. - CAD s/p prior CABGx3 - asa, statin, Coreg, eunice, Procardia, hydralazine - Prediabetes - sliding scale insulin. A1C 5.8, - Asthma/Emphysema with chronic hypoxic respiratory failure - IS, wean as tolerated. Aerosols PRN. Recent COPD exacerbation, and Flu which was treated with 5 days of steroids and 5 days of Tamiflu - HTN - continue current therapy. - Dysphagia - mechanical soft, thin liquids. - Hx Systolic CHF and cardiomyopathy - continue current meds, avoid overhydration. Monitor for fluid overload. - Nicotine abuse - was smoking up to this stroke admission. Patch if desired. Cessation encouraged. - CT Scan brain, will start Eliquis if no changes are noted. - Scattered Rhonchi => Chest X-ray, and scheduled aerosols, chest x-ray negative for infiltrates - D/C the Symbicort, patient unable to utilize correctly, started DuoNeb and Pulmicort - Patient is a DNR-[facility]
[2017-09-14] MEDS: Atorvastatin Calcium 40 MG Tablet PO (21:07)
[2017-09-14] MEDS: Mirtazapine 15 MG Tablet PO (21:07)
[2017-09-15] VITALS (9 sets, daily range): BP systolic 131–149; BP diastolic 65–74; PULSE 53–83; RESP 16–18; TEMP 36.3–36.9; O2SAT 92–93; BMI 30.4
[2017-09-15] MEDS: Budesonide Respules 0.5 MG/2 ML AMPUL.NEB. INHALATION (07:03)
[2017-09-15] MEDS: Ipratropium/Albuterol Sulfate 3 ML AMPUL.NEB INHALATION ×3 (07:03→15:28)
[2017-09-15] MEDS: Lisinopril 40 MG Tablet PO (07:47)
[2017-09-15] MEDS: Carvedilol 6.25 MG Tablet PO ×2 (07:47→17:50)
[2017-09-15] MEDS: APIXABAN 5 MG TABLET PO ×2 (07:47→20:59)
[2017-09-15] MEDS: NIFEdipine 30 MG Tablet PO (07:47)
[2017-09-15] MEDS: Senna/Docusate Sodium 1 Tablet 2 TABLET PO ×2 (07:48→20:59)
[2017-09-15] MEDS: Amiodarone 200 MG Tablet PO (07:48)
[2017-09-15] MEDS: Menthol/Lanolin/Calamine/Znox 113 GM Tube 1 APPLIC TOPICAL ×2 (09:44→20:59)
[2017-09-15] MEDS: Atorvastatin Calcium 40 MG Tablet PO (20:59)
[2017-09-15] MEDS: Mirtazapine 15 MG Tablet PO (20:59)
--- NOTE | 2017-09-16 03:13 | NURSING ---
REVIEWED AND AGREE WITH HIDE SPREADER'S FIMS.
[2017-09-16 05:37] VITALS: BP 158/82; PULSE 62
[2017-09-16] MEDS: Amiodarone 200 MG Tablet PO (07:50)
[2017-09-16] MEDS: NIFEdipine 30 MG Tablet PO (07:50)
[2017-09-16] MEDS: Lisinopril 40 MG Tablet PO (07:50)
[2017-09-16] MEDS: Senna/Docusate Sodium 1 Tablet 2 TABLET PO (07:50)
[2017-09-16] MEDS: APIXABAN 5 MG TABLET PO ×2 (07:50→20:32)
[2017-09-16] MEDS: Carvedilol 6.25 MG Tablet PO ×2 (07:51→16:14)
[2017-09-16 09:33] VITALS: BP 152/68; PULSE 66; RESP 16; TEMP 36.7; O2SAT 96
[2017-09-16 09:59] VITALS: PULSE 58
[2017-09-16 10:04] VITALS: BMI 30.4
[2017-09-16] MEDS: Menthol/Lanolin/Calamine/Znox 113 GM Tube 1 APPLIC TOPICAL (10:53)
[2017-09-16 16:13] VITALS: BP 138/51; PULSE 63
[2017-09-16 20:00] VITALS: BP 129/58; PULSE 61; RESP 18; TEMP 37.2; O2SAT 94; BMI 30.4
[2017-09-16 20:32] VITALS: BP 129/58; PULSE 61
[2017-09-16] MEDS: Atorvastatin Calcium 40 MG Tablet PO (20:32)
[2017-09-16] MEDS: Mirtazapine 15 MG Tablet PO (20:33)
--- NOTE | 2017-09-17 02:09 | NURSING ---
REVIEWED AND AGREE WITH SUPERVISOR [employer]ATCH[employer]'S FIM AND HANDOFF CHARTING.
[2017-09-17 05:32] VITALS: BP 152/59; PULSE 59
[2017-09-17] MEDS: Amiodarone 200 MG Tablet PO (08:16)
[2017-09-17] MEDS: NIFEdipine 30 MG Tablet PO (08:16)
[2017-09-17] MEDS: Lisinopril 40 MG Tablet PO (08:16)
[2017-09-17] MEDS: APIXABAN 5 MG TABLET PO ×2 (08:16→20:20)
[2017-09-17] MEDS: Carvedilol 6.25 MG Tablet PO ×2 (08:16→17:30)
[2017-09-17] MEDS: Menthol/Lanolin/Calamine/Znox 113 GM Tube 1 APPLIC TOPICAL (08:17)
[2017-09-17 08:30] VITALS: BP 152/59; PULSE 59; RESP 17; TEMP 37.2; O2SAT 94
--- NOTE | 2017-09-17 10:17 | PCM.PN.NEU ---
Subjective: Staffed in team meeting. Family at bedside. Questions answered. With Physical therapy, she is a max assist of two to stand, and pivot. She is able to stand at the chair rail for about 1 -2 mins before becoming tired. She is able to ski edge painter the parallel bars or with the Kasandra lift for about 5mins. She is still unable to take steps at this time. She continues to have no movement in the right arm and leg. With Occupational therapy she is a max assist for grooming, she is able to wash her face and to do some upper body grooming, she is a total assist for her lower body care. There is some trace movement in her triceps area. She has right sided neglect and needs to be cue to look to that side. She is able to sit/balance her trunk for about 25 to 35mins. With speech therapy, her ability to recognize real objects is good she can recognize them about 60% to 75% of the time, doing better than with pictures or words. She is tolerating a thin liquid/ Mechanical soft diet,with out difficulty. With nursing no issues. The family asked about pet therapy and if it was possible to have that while she was in the rehab unit. Will make arrangements for her to receive pet therapy down in the TCU or in the lobby area. Will re-team her on Sunday of next week. - Physical Exam General: Alert, Oriented x3, Cooperative HEENT: Atraumatic, PERRLA, EOMI, Normocephalic Neck: Supple, No JVD, Negative Carotid Bruits Lungs: Clear to auscultation, Normal air movement Cardiovascular: Regular rate, No murmurs Abdomen: Bowel Sounds Present, Soft, Non Tender Extremities: No edema, Capillary Refill Less than 3 Seconds Skin: No rashes, No breakdown Musculoskeletal: No Tenderness to Palpation of Joints or Extremities Neurological: Cranial nerves II-XII grossly intact Psych/Mental Status: Normal Affect, Appropriate Vital Signs Temp Pulse Resp BP Pulse Ox 98.9 F 59 L 17 152/59 H 94 09/17/17 08:30 18 08:30 09/17/17 08:30 09/17/17 08:30 09/17/17 08:30 Oxygen Flow Rate (L/min) 2 Oxygen Delivery Method Room Air Weight: 81 kg Body Mass Index (BMI) 30.4 Finger Stick Blood Glucose 125 Intake and Output for Last 24 Hours 09/15/17 09/16/17 09/17/17 22:59 23:59 23:59 Intake Total 120 / 120 Balance 120 / 120 Active Medications Albuterol Sulfate (Ventolin Hfa (Sp)) 1 puff INHALATION Q4H PRN PRN PRN Reason: SOB &/OR WHEEZING Albuterol/Ipratropium (Duoneb) 3 ml INHALATION Q4HWA.RT PRN PRN Reason: SOB &/OR WHEEZING Amiodarone HCl (Cordarone) 200 mg PO DAILY [facility] Last Admin: 09/17/17 08:16 Dose: 200 mg Apixaban (Eliquis) 5 mg PO BID [facility] Last Admin: 09/17/17 08:16 Dose: 5 mg Atorvastatin Calcium (Lipitor) 40 mg PO QHS [facility] Last Admin: 09/16/17 20:32 Dose: 40 mg Bisacodyl (Dulcolax) 10 mg RECTAL .PRN X 1 PRN PRN Reason: Constipation Budesonide (Pulmicort Aerosol) 0.5 mg INHALATION Q12H.RT [facility] Last Admin: 09/17/17 06:20 Dose: Not Given Calamine/Phenol (Calmoseptine Ointment) 1 applic TOPICAL BID [facility] PRN Reason: Protocol Last Admin: 09/17/17 08:17 Dose: 1 applicatio Carvedilol (Coreg) 6.25 mg PO BIDAC [facility] Last Admin: 09/17/17 08:16 Dose: 6.25 mg Hydralazine HCl (Apresoline) 75 mg PO Q8 [facility] Last Admin: 09/17/17 05:32 Dose: 75 mg Lisinopril (Zestril) 40 mg PO DAILY [facility] Last Admin: 09/17/17 08:16 Dose: 40 mg Magnesium Hydroxide (Milk Of Magnesia) 30 ml PO .PRN X 1 PRN PRN Reason: Constipation Mirtazapine (Remeron) 15 mg PO QHS [facility] Last Admin: 09/16/17 20:33 Dose: 15 mg Nifedipine (Procardia Xl) 30 mg PO DAILY [facility] Last Admin: 09/17/17 08:16 Dose: 30 mg Senna/Docusate Sodium (Senokot-S, Evie-Colace) 2 tablet PO BID [facility] Last Admin: 09/17/17 07:30 Dose: Not Given Assessment/Plan Debility s/p acute ischemic strokes of the L MCA and LICA, Complicated by prior stroke, AVM slips, New onset AFib, right sided deficits., severe aphasia and dysphagia. Goal of rehab is jewish of functional independence. Plan: - Physical therapy for gait and balance - Occupational Therapy for ADLs - Speech therapy - As needed analgesics - Bowel protocol - Stroke prevention on ASA, Statin and Lovenox, will transition to Eliquis after CT scan, will then D/C the ASA and the Lovenox - DVT prophylaxis: SCDs, ASA, Lovenox - New onset PAF - to start OAC (eliquis) if repeat CT scan is good. will continue Amio and taper according to direction from [facility]. - CAD s/p prior CABGx3 - asa, statin, Coreg, eunice, Procardia, hydralazine - Prediabetes - sliding scale insulin. A1C 5.8, - Asthma/Emphysema with chronic hypoxic respiratory failure - IS, wean as tolerated. Aerosols PRN. Recent COPD exacerbation, and Flu which was treated with 5 days of steroids and 5 days of Tamiflu - HTN - continue current therapy. - Dysphagia - mechanical soft, thin liquids. - Hx Systolic CHF and cardiomyopathy - continue current meds, avoid overhydration. Monitor for fluid overload. - Nicotine abuse - was smoking up to this stroke admission. Patch if desired. Cessation encouraged. - CT Scan brain, will start Eliquis if no changes are noted. - Scattered Rhonchi => Chest X-ray, and scheduled aerosols, chest x-ray negative for infiltrates - D/C the Symbicort, patient unable to utilize correctly, started DuoNeb and Pulmicort - Patient is a DNR-[facility]
--- NOTE | 2017-09-17 10:25 | PN.NEURO_ITS ---
Subjective: Staffed in team meeting. Family at bedside. Questions answered. With Physical therapy, she is a max assist of two to stand, and pivot. She is able to stand at the chair rail for about 1 -2 mins before becoming tired. She is able to skilled nursing case manager the parallel bars or with the Kasandra lift for about 5mins. She is still unable to take steps at this time. She continues to have no movement in the right arm and leg. With Occupational therapy she is a max assist for grooming, she is able to wash her face and to do some upper body grooming, she is a total assist for her lower body care. There is some trace movement in her triceps area. She has right sided neglect and needs to be cue to look to that side. She is able to sit/balance her trunk for about 25 to 35mins. With speech therapy, her ability to recognize real objects is good she can recognize them about 60% to 75% of the time, doing better than with pictures or words. She is tolerating a thin liquid/ Mechanical soft diet,with out difficulty. With nursing no issues. The family asked about pet therapy and if it was possible to have that while she was in the rehab unit. Will make arrangements for her to receive pet therapy down in the TCU or in the lobby area. Will re-team her on Sunday of next week. - Physical Exam General: Alert, Oriented x3, Cooperative HEENT: Atraumatic, PERRLA, EOMI, Normocephalic Neck: Supple, No JVD, Negative Carotid Bruits Lungs: Clear to auscultation, Normal air movement Cardiovascular: Regular rate, No murmurs Abdomen: Bowel Sounds Present, Soft, Non Tender Extremities: No edema, Capillary Refill Less than 3 Seconds Skin: No rashes, No breakdown Musculoskeletal: No Tenderness to Palpation of Joints or Extremities Neurological: Cranial nerves II-XII grossly intact Psych/Mental Status: Normal Affect, Appropriate Vital Signs Temp Pulse Resp BP Pulse Ox 98.9 F 59 L 17 152/59 H 94 09/17/17 08:30 18 08:30 09/17/17 08:30 09/17/17 08:30 09/17/17 08:30 Oxygen Flow Rate (L/min) 2 Oxygen Delivery Method Room Air Weight: 81 kg Body Mass Index (BMI) 30.4 Finger Stick Blood Glucose 125 Intake and Output for Last 24 Hours 09/15/17 09/16/17 09/17/17 22:59 23:59 23:59 Intake Total 120 / 120 Balance 120 / 120 Active Medications Albuterol Sulfate (Ventolin Hfa (Sp)) 1 puff INHALATION Q4H PRN PRN PRN Reason: SOB &/OR WHEEZING Albuterol/Ipratropium (Duoneb) 3 ml INHALATION Q4HWA.RT PRN PRN Reason: SOB &/OR WHEEZING Amiodarone HCl (Cordarone) 200 mg PO DAILY [facility] Last Admin: 09/17/17 08:16 Dose: 200 mg Apixaban (Eliquis) 5 mg PO BID [facility] Last Admin: 09/17/17 08:16 Dose: 5 mg Atorvastatin Calcium (Lipitor) 40 mg PO QHS [facility] Last Admin: 09/16/17 20:32 Dose: 40 mg Bisacodyl (Dulcolax) 10 mg RECTAL .PRN X 1 PRN PRN Reason: Constipation Budesonide (Pulmicort Aerosol) 0.5 mg INHALATION Q12H.RT [facility] Last Admin: 09/17/17 06:20 Dose: Not Given Calamine/Phenol (Calmoseptine Ointment) 1 applic TOPICAL BID [facility] PRN Reason: Protocol Last Admin: 09/17/17 08:17 Dose: 1 applicatio Carvedilol (Coreg) 6.25 mg PO BIDAC [facility] Last Admin: 09/17/17 08:16 Dose: 6.25 mg Hydralazine HCl (Apresoline) 75 mg PO Q8 [facility] Last Admin: 09/17/17 05:32 Dose: 75 mg Lisinopril (Zestril) 40 mg PO DAILY [facility] Last Admin: 09/17/17 08:16 Dose: 40 mg Magnesium Hydroxide (Milk Of Magnesia) 30 ml PO .PRN X 1 PRN PRN Reason: Constipation Mirtazapine (Remeron) 15 mg PO QHS [facility] Last Admin: 09/16/17 20:33 Dose: 15 mg Nifedipine (Procardia Xl) 30 mg PO DAILY [facility] Last Admin: 09/17/17 08:16 Dose: 30 mg Senna/Docusate Sodium (Senokot-S, Evie-Colace) 2 tablet PO BID [facility] Last Admin: 09/17/17 07:30 Dose: Not Given Assessment/Plan Debility s/p acute ischemic strokes of the L MCA and LICA, Complicated by prior stroke, AVM slips, New onset AFib, right sided deficits., severe aphasia and dysphagia. Goal of rehab is lutheran of functional independence. Plan: - Physical therapy for gait and balance - Occupational Therapy for ADLs - Speech therapy - As needed analgesics - Bowel protocol - Stroke prevention on ASA, Statin and Lovenox, will transition to Eliquis after CT scan, will then D/C the ASA and the Lovenox - DVT prophylaxis: SCDs, ASA, Lovenox - New onset PAF - to start OAC (eliquis) if repeat CT scan is good. will continue Amio and taper according to direction from [facility]. - CAD s/p prior CABGx3 - asa, statin, Coreg, eunice, Procardia, hydralazine - Prediabetes - sliding scale insulin. A1C 5.8, - Asthma/Emphysema with chronic hypoxic respiratory failure - IS, wean as tolerated. Aerosols PRN. Recent COPD exacerbation, and Flu which was treated with 5 days of steroids and 5 days of Tamiflu - HTN - continue current therapy. - Dysphagia - mechanical soft, thin liquids. - Hx Systolic CHF and cardiomyopathy - continue current meds, avoid overhydration. Monitor for fluid overload. - Nicotine abuse - was smoking up to this stroke admission. Patch if desired. Cessation encouraged. - CT Scan brain, will start Eliquis if no changes are noted. - Scattered Rhonchi => Chest X-ray, and scheduled aerosols, chest x-ray negative for infiltrates - D/C the Symbicort, patient unable to utilize correctly, started DuoNeb and Pulmicort - Patient is a DNR-[facility]
--- NOTE | 2017-09-17 10:53 | CASEMGMT ---
Team meeting held. Patient present as well as patient family. No discharge date set at this time. Medicare approved until 09/29/17 with a discharge on or before 09/29/17. Collaborating on discharge plan. Current discharge plan is home with family versus skilled facility. This social media intern providing patient family with a list of skilled facilities. Patient family planning to look into skilled facilities this week and have their 1st and 2nd choice options for team next week. Support given. Will continue to follow. Khushboo FONG, ROOF TRUSS BUILDER
[2017-09-17 13:40] VITALS: BP 122/87; PULSE 57
[2017-09-17 14:39] VITALS: BMI 30.4
--- NOTE | 2017-09-17 15:00 | NURSING ---
david wound rn up to assess nonblanchable reddened coccyx. continue with mepilex.
--- NOTE | 2017-09-17 15:08 | PCM.PN.HOSP ---
Subjective: Seen and examined. Patient still has right-sided weakness, both upper and lower extremity but walks with assistance and walker. Denies dysphagia/dysarthria. Vitals/I&O's: Vital Signs Temp Pulse Resp BP Pulse Ox 98.9 F 57 L 17 122/87 H 94 09/17/17 08:30 09/17/17 13:40 09/17/17 08:30 09/17/17 13:40 09/17/17 08:30 Oxygen Flow Rate (L/min) 2 Oxygen Delivery Method Room Air Weight: 178 lb 9.191 oz Body Mass Index (BMI) 30.4 Finger Stick Blood Glucose 125 Intake and Output for Last 24 Hours 09/15/17 09/16/17 09/17/17 22:59 23:59 23:59 Intake Total 240 / 240 Balance 240 / 240 General: Alert, Oriented x3, Cooperative HEENT: Atraumatic, PERRLA, EOMI, Normocephalic Neck: Supple, No JVD, Negative Carotid Bruits Lungs: Clear to auscultation, No rhonchi, No wheeze, No rales, Diminished Cardiovascular: Regular rate, Regular Rhythm, Normal S1, Normal S2, No murmurs Abdomen: Bowel Sounds Present, Soft, Non Tender, Non-Distended Extremities: No edema, Capillary Refill Less than 3 Seconds Skin: No rashes, No breakdown Musculoskeletal: No Tenderness to Palpation of Joints or Extremities, Arthritic Changes Neurological: Cranial nerves II-XII grossly intact, - - Right-sided weakness. Limbs fall on the bed without radiation. Left upper and lower extremity 5/5 at major joints. Psych/Mental Status: Normal Affect, Appropriate Current Medications Albuterol Sulfate (Ventolin Hfa (Sp)) 1 puff INHALATION Q4H PRN PRN PRN Reason: SOB &/OR WHEEZING Albuterol/Ipratropium (Duoneb) 3 ml INHALATION Q4HWA.RT PRN PRN Reason: SOB &/OR WHEEZING Amiodarone HCl (Cordarone) 200 mg PO DAILY [facility] Last Admin: 09/17/17 08:16 Dose: 200 mg Apixaban (Eliquis) 5 mg PO BID [facility] Last Admin: 09/17/17 08:16 Dose: 5 mg Atorvastatin Calcium (Lipitor) 40 mg PO QHS [facility] Last Admin: 09/16/17 20:32 Dose: 40 mg Bisacodyl (Dulcolax) 10 mg RECTAL .PRN X 1 PRN PRN Reason: Constipation Budesonide (Pulmicort Aerosol) 0.5 mg INHALATION Q12H.RT [facility] Last Admin: 09/17/17 06:20 Dose: Not Given Calamine/Phenol (Calmoseptine Ointment) 1 applic TOPICAL BID [facility] PRN Reason: Protocol Last Admin: 09/17/17 08:17 Dose: 1 applicatio Carvedilol (Coreg) 6.25 mg PO BIDAC [facility] Last Admin: 09/17/17 08:16 Dose: 6.25 mg Hydralazine HCl (Apresoline) 75 mg PO Q8 [facility] Last Admin: 09/17/17 13:40 Dose: 75 mg Lisinopril (Zestril) 40 mg PO DAILY [facility] Last Admin: 09/17/17 08:16 Dose: 40 mg Magnesium Hydroxide (Milk Of Magnesia) 30 ml PO .PRN X 1 PRN PRN Reason: Constipation Mirtazapine (Remeron) 15 mg PO QHS [facility] Last Admin: 09/16/17 20:33 Dose: 15 mg Nifedipine (Procardia Xl) 30 mg PO DAILY [facility] Last Admin: 09/17/17 08:16 Dose: 30 mg Senna/Docusate Sodium (Senokot-S, Evie-Colace) 2 tablet PO BID [facility] Last Admin: 09/17/17 07:30 Dose: Not Given Assessment/Plan The patient is 71-year-old female who is admitted in acute rehab for acute ischemic strokes of the L MCA and LICA, Complicated by prior stroke, AVM slips, New onset AFib, right sided deficits., severe aphasia and dysphagia. Goal of rehab is muslim of functional independence. 1. Acute CVA continue Eliquis, High-intensity statin. PT/OT/ST. Seen by neurologist. 2. Paroxysmal atrial fibrillation: Previous EKG on August 25, 2017 shows sinus rhythm with PACs. Left bundle branch block. Amiodarone on Eliquis follow up with cardiology as outpt 3. DVT proph: On Eliquis. Code Visit Inpatient E&M: 88800 Subs Hosp L2
[2017-09-17 17:30] VITALS: BP 148/71; PULSE 61
[2017-09-17 20:00] VITALS: BP 137/56; PULSE 56; RESP 18; TEMP 36.8; O2SAT 96; BMI 30.4
[2017-09-17 20:19] VITALS: BP 137/56; PULSE 56
[2017-09-17] MEDS: Mirtazapine 15 MG Tablet PO (20:19)
[2017-09-17] MEDS: Atorvastatin Calcium 40 MG Tablet PO (20:19)
[2017-09-18] VITALS (7 sets, daily range): BP systolic 108–148; BP diastolic 53–81; PULSE 55–63; RESP 16–24; TEMP 36.7–37; O2SAT 95–97; BMI 30.4
--- NOTE | 2017-09-18 02:11 | NURSING ---
Reviewed and agree with SCREEN PRINTING EQUIPMENT SETTER documentation and FIMS charting.
[2017-09-18] MEDS: Amiodarone 200 MG Tablet PO (07:56)
[2017-09-18] MEDS: Lisinopril 40 MG Tablet PO (07:56)
[2017-09-18] MEDS: Carvedilol 6.25 MG Tablet PO ×2 (07:56→17:13)
[2017-09-18] MEDS: APIXABAN 5 MG TABLET PO ×2 (07:56→21:22)
[2017-09-18] MEDS: NIFEdipine 30 MG Tablet PO (07:56)
[2017-09-18] MEDS: Menthol/Lanolin/Calamine/Znox 113 GM Tube 1 APPLIC TOPICAL ×2 (07:58→21:40)
--- NOTE | 2017-09-18 12:10 | PCM.PN.NEU ---
Subjective: Patient tolerating therapy. No new complaints. No issues with GI/. - Physical Exam General: Alert, Oriented x3, Cooperative HEENT: Atraumatic, PERRLA, EOMI, Normocephalic Neck: Supple, No JVD, Negative Carotid Bruits Lungs: Clear to auscultation, Normal air movement Cardiovascular: Regular rate, No murmurs Abdomen: Bowel Sounds Present, Soft, Non Tender Extremities: No edema, Capillary Refill Less than 3 Seconds Skin: No rashes, No breakdown Musculoskeletal: No Tenderness to Palpation of Joints or Extremities Neurological: Cranial nerves II-XII grossly intact Psych/Mental Status: Normal Affect, Appropriate Vital Signs Temp Pulse Resp BP Pulse Ox 98.0 F 63 16 133/81 H 95 09/18/17 07:38 09/18/17 07:38 09/18/17 07:38 09/18/17 07:38 09/18/17 07:38 Oxygen Flow Rate (L/min) 2 Oxygen Delivery Method Room Air Weight: 81 kg Body Mass Index (BMI) 30.4 Finger Stick Blood Glucose 125 Intake and Output for Last 24 Hours 09/16/17 09/17/17 09/18/17 23:59 23:59 23:59 Intake Total 480 / 480 120 / 120 Balance 480 / 480 120 / 120 Active Medications Albuterol Sulfate (Ventolin Hfa (Sp)) 1 puff INHALATION Q4H PRN PRN PRN Reason: SOB &/OR WHEEZING Albuterol/Ipratropium (Duoneb) 3 ml INHALATION Q4HWA.RT PRN PRN Reason: SOB &/OR WHEEZING Amiodarone HCl (Cordarone) 200 mg PO DAILY [facility] Last Admin: 09/18/17 07:56 Dose: 200 mg Apixaban (Eliquis) 5 mg PO BID [facility] Last Admin: 09/18/17 07:56 Dose: 5 mg Atorvastatin Calcium (Lipitor) 40 mg PO QHS [facility] Last Admin: 09/17/17 20:19 Dose: 40 mg Bisacodyl (Dulcolax) 10 mg RECTAL .PRN X 1 PRN PRN Reason: Constipation Budesonide (Pulmicort Aerosol) 0.5 mg INHALATION Q12H.RT [facility] Last Admin: 09/18/17 08:36 Dose: Not Given Calamine/Phenol (Calmoseptine Ointment) 1 applic TOPICAL BID [facility] PRN Reason: Protocol Last Admin: 09/18/17 07:58 Dose: 1 applicatio Carvedilol (Coreg) 6.25 mg PO BIDAC [facility] Last Admin: 09/18/17 07:56 Dose: 6.25 mg Hydralazine HCl (Apresoline) 75 mg PO Q8 [facility] Last Admin: 09/18/17 06:25 Dose: 75 mg Lisinopril (Zestril) 40 mg PO DAILY [facility] Last Admin: 09/18/17 07:56 Dose: 40 mg Magnesium Hydroxide (Milk Of Magnesia) 30 ml PO .PRN X 1 PRN PRN Reason: Constipation Mirtazapine (Remeron) 15 mg PO QHS [facility] Last Admin: 09/17/17 20:19 Dose: 15 mg Nifedipine (Procardia Xl) 30 mg PO DAILY [facility] Last Admin: 09/18/17 07:56 Dose: 30 mg Senna/Docusate Sodium (Senokot-S, Evie-Colace) 2 tablet PO BID [facility] Last Admin: 09/18/17 07:57 Dose: Not Given Assessment/Plan Debility s/p acute ischemic strokes of the L MCA and LICA, Complicated by prior stroke, AVM slips, New onset AFib, right sided deficits., severe aphasia and dysphagia. Goal of rehab is roman catholic of functional independence. Plan: - Physical therapy for gait and balance - Occupational Therapy for ADLs - Speech therapy - As needed analgesics - Bowel protocol - Stroke prevention on ASA, Statin and Lovenox, will transition to Eliquis after CT scan, will then D/C the ASA and the Lovenox - DVT prophylaxis: SCDs, ASA, Lovenox - New onset PAF - to start OAC (eliquis) if repeat CT scan is good. will continue Amio and taper according to direction from [facility]. - CAD s/p prior CABGx3 - asa, statin, Coreg, eunice, Procardia, hydralazine - Prediabetes - sliding scale insulin. A1C 5.8, - Asthma/Emphysema with chronic hypoxic respiratory failure - IS, wean as tolerated. Aerosols PRN. Recent COPD exacerbation, and Flu which was treated with 5 days of steroids and 5 days of Tamiflu - HTN - continue current therapy. - Dysphagia - mechanical soft, thin liquids. - Hx Systolic CHF and cardiomyopathy - continue current meds, avoid overhydration. Monitor for fluid overload. - Nicotine abuse - was smoking up to this stroke admission. Patch if desired. Cessation encouraged. - CT Scan brain, will start Eliquis if no changes are noted. - Scattered Rhonchi => Chest X-ray, and scheduled aerosols, chest x-ray negative for infiltrates - D/C the Symbicort, patient unable to utilize correctly, started DuoNeb and Pulmicort - Patient is a DNR-[facility]
[2017-09-18] MEDS: Budesonide Respules 0.5 MG/2 ML AMPUL.NEB. INHALATION (19:25)
[2017-09-18] MEDS: Ipratropium/Albuterol Sulfate 3 ML AMPUL.NEB INHALATION (19:25)
[2017-09-18] MEDS: Mirtazapine 15 MG Tablet PO (21:22)
[2017-09-18] MEDS: Atorvastatin Calcium 40 MG Tablet PO (21:22)
--- NOTE | 2017-09-18 21:42 | NURSING ---
1899 daughter came to desk and stated that pt was pale and not acting right. rn back to see pt and vs were as follows T-98.6, ap-55, r-24, spo2-95% and bp-108/53. and reported that ls sounds were diminished and o2 at 2l/m was put on as a comfort measure. pt denied any sob or discomfort when asked. will continue to monitor. daughter informed that pt had been refusing breathing tx as well, but agreeable to taking one now. cps called to give breathing tx. daughter had voiced concern that pt's unaffected leg was hurting her today as well. 1936 cheryl from cps here and breathing tx given to pt. rn to check on pt. daughter to lobby to check on family member and stated that she would be back 2030 spot check on pt, pt denied any discomfort and resting quietly in the bed with o2 intact spo2 was 97% with ap of 55 respirations 24 2099 daughter in room with pt watching movie, came and found this worker stating that pt was appearing pale. staff came to room and pt is resting on her side with o2 intact, respirations are at 24. rest of clinical findings were unremarkable with only fine crackles noted in the rt lower posterior field. reassurance given to daughter. pt was given milk by daughter earlier to increase po intake and pt had drank all and tolerated well. pt does appear tired this hs but it was stated in report that she had worked hard in therapy today. will continue to monitor pt this hs 2119 daughter stayed to given pt a massage before she fell asleep. [id number] daughter left unit and stated that pt was sleeping
[2017-09-19] VITALS (9 sets, daily range): BP systolic 113–146; BP diastolic 51–65; PULSE 53–62; RESP 17–24; TEMP 36.7–37.1; O2SAT 92–99; BMI 30.4
--- NOTE | 2017-09-19 01:24 | NURSING ---
REVIEWED AND AGREE WITH RIG SITE ENGINEER'S FIM AND HANDOFF CHARTING.
--- NOTE | 2017-09-19 04:06 | NURSING ---
pt has rested quietly through out the night with even non-labored respirations with o2 maintained at 2l/m. no signs or sx of distress noted on rounding. pt turned and repositioned every 2 hours with call light in reach
--- NOTE | 2017-09-19 07:50 | CPS ---
Pt initially declined aerosol but agreed after RN spoke with her.
[2017-09-19] MEDS: APIXABAN 5 MG TABLET PO ×2 (08:23→19:52)
[2017-09-19] MEDS: NIFEdipine 30 MG Tablet PO (08:23)
[2017-09-19] MEDS: Carvedilol 6.25 MG Tablet PO ×2 (08:23→17:18)
[2017-09-19] MEDS: Lisinopril 40 MG Tablet PO (08:23)
[2017-09-19] MEDS: Senna/Docusate Sodium 1 Tablet 2 TABLET PO ×2 (08:23→19:53)
[2017-09-19] MEDS: Amiodarone 200 MG Tablet PO (08:23)
[2017-09-19 09:36] LABS: Hematocrit 38.3 % (37-47); Hemoglobin 11.6 g/dl (12.0-15.0); Mean Corp Hgb Conc 30.3 g/gl (32-36); Mean Corpuscular Hgb 28.5 pg (27.0-32.0); Mean Corpuscular Volume 94.1 fL (81-99); Mean Platelet Vol. 10.3 fl (6.2-12.0); Platelet Count 200 K/mm3 (150-450); RBC Distribution Width CV 13.9 % (11.6-14.6); RBC Distribution Width SD 47.7 fl (35.1-43.9); Red Blood Count 4.07 M/mm3 (4.2-5.4); White Blood Count 7.4 K/mm3 (4.4-11.0)
[2017-09-19 09:39] LABS: Scan Indicated on CBC? Y/N NO
[2017-09-19] MEDS: Menthol/Lanolin/Calamine/Znox 113 GM Tube 1 APPLIC TOPICAL ×2 (09:58→19:52)
[2017-09-19 10:07] LABS: Ferritin 165 ng/mL (8-252); Iron Binding Capacity,Total 209 ug/dL (250-450); T4 Free Direct 1.21 ng/dL (0.76-1.46); Thyroid Stim Hormone (TSH) 2.13 uIU/mL (0.358-3.74)
--- NOTE | 2017-09-19 12:30 | NURSING ---
Cooperative and alert per normal assessment. No sob noted. Fluids encouraged and taken fair.
--- NOTE | 2017-09-19 13:49 | PCM.PN.NEU ---
Subjective: Patient seen, resting quietly in bedside recliner. Family was concerned that the patient was so tired during their visit last night and ask to have her Iron levels check since she has a Hx of Iron deficiency, her TIBC levels was Normal and her Ferritin levels was slightly low, but she has no signs of anemia at this time. will continue to monitor. Tolerating therapy. No issues with GI/. - Physical Exam General: Alert, Oriented x3, Cooperative HEENT: Atraumatic, PERRLA, EOMI, Normocephalic Neck: Supple, No JVD, Negative Carotid Bruits Lungs: Clear to auscultation, Normal air movement Cardiovascular: Regular rate, No murmurs Abdomen: Bowel Sounds Present, Soft, Non Tender Extremities: No edema, Capillary Refill Less than 3 Seconds Skin: No rashes, No breakdown Musculoskeletal: No Tenderness to Palpation of Joints or Extremities Neurological: Cranial nerves II-XII grossly intact Psych/Mental Status: Normal Affect, Appropriate Vital Signs Temp Pulse Resp BP Pulse Ox 98.7 F 60 17 118/51 L 93 09/19/17 10:00 09/19/17 10:00 09/19/17 10:00 09/19/17 10:00 09/19/17 10:00 Oxygen Flow Rate (L/min) 2 Oxygen Delivery Method Room Air Weight: 81.7 kg Body Mass Index (BMI) 30.4 Finger Stick Blood Glucose 125 Intake and Output for Last 24 Hours 09/17/17 09/18/17 09/19/17 23:59 23:59 23:59 Intake Total 480 / 480 480 / 480 240 / 240 Balance 480 / 480 480 / 480 240 / 240 Laboratory Tests Past 24 Hrs 09/19/17 09/19/17 09:25 09:25 WBC 7.4 RBC 4.07 L Hgb 11.6 L Hct 38.3 MCV 94.1 MCH 28.5 MCHC 30.3 L RDW 13.9 RDW Differential 47.7 H Plt Count 200 MPV 10.3 TIBC 209 L Ferritin 165 TSH 2.13 Free T4 1.21 Active Medications Albuterol Sulfate (Ventolin Hfa (Sp)) 1 puff INHALATION Q4H PRN PRN PRN Reason: SOB &/OR WHEEZING Albuterol/Ipratropium (Duoneb) 3 ml INHALATION Q4HWA.RT PRN PRN Reason: SOB &/OR WHEEZING Last Admin: 09/18/17 19:25 Dose: 3 ml Amiodarone HCl (Cordarone) 200 mg PO DAILY [facility] Last Admin: 09/19/17 08:23 Dose: 200 mg Apixaban (Eliquis) 5 mg PO BID [facility] Last Admin: 09/19/17 08:23 Dose: 5 mg Atorvastatin Calcium (Lipitor) 40 mg PO QHS [facility] Last Admin: 09/18/17 21:22 Dose: 40 mg Bisacodyl (Dulcolax) 10 mg RECTAL .PRN X 1 PRN PRN Reason: Constipation Budesonide (Pulmicort Aerosol) 0.5 mg INHALATION Q12H.RT [facility] Last Admin: 09/18/17 19:25 Dose: 0.5 mg Calamine/Phenol (Calmoseptine Ointment) 1 applic TOPICAL BID [facility] PRN Reason: Protocol Last Admin: 09/19/17 09:58 Dose: 1 applicatio Carvedilol (Coreg) 6.25 mg PO BIDAC [facility] Last Admin: 09/19/17 08:23 Dose: 6.25 mg Hydralazine HCl (Apresoline) 75 mg PO Q8 [facility] Last Admin: 09/19/17 05:13 Dose: 75 mg Lisinopril (Zestril) 40 mg PO DAILY [facility] Last Admin: 09/19/17 08:23 Dose: 40 mg Magnesium Hydroxide (Milk Of Magnesia) 30 ml PO .PRN X 1 PRN PRN Reason: Constipation Mirtazapine (Remeron) 15 mg PO QHS [facility] Last Admin: 09/18/17 21:22 Dose: 15 mg Nifedipine (Procardia Xl) 30 mg PO DAILY [facility] Last Admin: 09/19/17 08:23 Dose: 30 mg Senna/Docusate Sodium (Senokot-S, Evie-Colace) 2 tablet PO BID [facility] Last Admin: 09/19/17 08:23 Dose: 2 tablet Assessment/Plan Debility s/p acute ischemic strokes of the L MCA and LICA, Complicated by prior stroke, AVM slips, New onset AFib, right sided deficits., severe aphasia and dysphagia. Goal of rehab is roman catholic of functional independence. Plan: - Physical therapy for gait and balance - Occupational Therapy for ADLs - Speech therapy - As needed analgesics - Bowel protocol - Stroke prevention on ASA, Statin and Lovenox, will transition to Eliquis after CT scan, will then D/C the ASA and the Lovenox - DVT prophylaxis: SCDs, ASA, Lovenox - New onset PAF - to start OAC (eliquis) if repeat CT scan is good. will continue Amio and taper according to direction from [facility]. - CAD s/p prior CABGx3 - asa, statin, Coreg, eunice, Procardia, hydralazine - Prediabetes - sliding scale insulin. A1C 5.8, - Asthma/Emphysema with chronic hypoxic respiratory failure - IS, wean as tolerated. Aerosols PRN. Recent COPD exacerbation, and Flu which was treated with 5 days of steroids and 5 days of Tamiflu - HTN - continue current therapy. - Dysphagia - mechanical soft, thin liquids. - Hx Systolic CHF and cardiomyopathy - continue current meds, avoid overhydration. Monitor for fluid overload. - Nicotine abuse - was smoking up to this stroke admission. Patch if desired. Cessation encouraged. - CT Scan brain, will start Eliquis if no changes are noted. - Scattered Rhonchi => Chest X-ray, and scheduled aerosols, chest x-ray negative for infiltrates - D/C the Symbicort, patient unable to utilize correctly, started DuoNeb and Pulmicort - Patient is a DNR-[facility]
--- NOTE | 2017-09-19 14:01 | PN.NEURO_ITS ---
Addendum entered and electronically signed by Candy Lara MD 15:24: I have personally examined the patient at bedside. Please see TAMIKA Medley's note as below for further complete details. I have discussed the management plan for the patient in detail with TAMIKA Medley and please see the plan as noted below. Patient tolerating therapies well, GI/DVT prophylaxis, falls precautions. Original Note: Subjective: Patient seen, resting quietly in bedside recliner. Family was concerned that the patient was so tired during their visit last night and ask to have her Iron levels check since she has a Hx of Iron deficiency, her TIBC levels was Normal and her Ferritin levels was slightly low, but she has no signs of anemia at this time. will continue to monitor. Tolerating therapy. No issues with GI/. - Physical Exam General: Alert, Oriented x3, Cooperative HEENT: Atraumatic, PERRLA, EOMI, Normocephalic Neck: Supple, No JVD, Negative Carotid Bruits Lungs: Clear to auscultation, Normal air movement Cardiovascular: Regular rate, No murmurs Abdomen: Bowel Sounds Present, Soft, Non Tender Extremities: No edema, Capillary Refill Less than 3 Seconds Skin: No rashes, No breakdown Musculoskeletal: No Tenderness to Palpation of Joints or Extremities Neurological: Cranial nerves II-XII grossly intact Psych/Mental Status: Normal Affect, Appropriate Vital Signs Temp Pulse Resp BP Pulse Ox 98.7 F 60 17 118/51 L 93 09/19/17 10:00 09/19/17 10:00 09/19/17 10:00 09/19/17 10:00 09/19/17 10:00 Oxygen Flow Rate (L/min) 2 Oxygen Delivery Method Room Air Weight: 81.7 kg Body Mass Index (BMI) 30.4 Finger Stick Blood Glucose 125 Intake and Output for Last 24 Hours 09/17/17 09/18/17 09/19/17 23:59 23:59 23:59 Intake Total 480 / 480 480 / 480 240 / 240 Balance 480 / 480 480 / 480 240 / 240 Laboratory Tests Past 24 Hrs 09/19/17 09/19/17 09:25 09:25 WBC 7.4 RBC 4.07 L Hgb 11.6 L Hct 38.3 MCV 94.1 MCH 28.5 MCHC 30.3 L RDW 13.9 RDW Differential 47.7 H Plt Count 200 MPV 10.3 TIBC 209 L Ferritin 165 TSH 2.13 Free T4 1.21 Active Medications Albuterol Sulfate (Ventolin Hfa (Sp)) 1 puff INHALATION Q4H PRN PRN PRN Reason: SOB &/OR WHEEZING Albuterol/Ipratropium (Duoneb) 3 ml INHALATION Q4HWA.RT PRN PRN Reason: SOB &/OR WHEEZING Last Admin: 09/18/17 19:25 Dose: 3 ml Amiodarone HCl (Cordarone) 200 mg PO DAILY [facility] Last Admin: 09/19/17 08:23 Dose: 200 mg Apixaban (Eliquis) 5 mg PO BID [facility] Last Admin: 09/19/17 08:23 Dose: 5 mg Atorvastatin Calcium (Lipitor) 40 mg PO QHS [facility] Last Admin: 09/18/17 21:22 Dose: 40 mg Bisacodyl (Dulcolax) 10 mg RECTAL .PRN X 1 PRN PRN Reason: Constipation Budesonide (Pulmicort Aerosol) 0.5 mg INHALATION Q12H.RT [facility] Last Admin: 09/18/17 19:25 Dose: 0.5 mg Calamine/Phenol (Calmoseptine Ointment) 1 applic TOPICAL BID [facility] PRN Reason: Protocol Last Admin: 09/19/17 09:58 Dose: 1 applicatio Carvedilol (Coreg) 6.25 mg PO BIDAC [facility] Last Admin: 09/19/17 08:23 Dose: 6.25 mg Hydralazine HCl (Apresoline) 75 mg PO Q8 [facility] Last Admin: 09/19/17 05:13 Dose: 75 mg Lisinopril (Zestril) 40 mg PO DAILY [facility] Last Admin: 09/19/17 08:23 Dose: 40 mg Magnesium Hydroxide (Milk Of Magnesia) 30 ml PO .PRN X 1 PRN PRN Reason: Constipation Mirtazapine (Remeron) 15 mg PO QHS [facility] Last Admin: 09/18/17 21:22 Dose: 15 mg Nifedipine (Procardia Xl) 30 mg PO DAILY [facility] Last Admin: 09/19/17 08:23 Dose: 30 mg Senna/Docusate Sodium (Senokot-S, Evie-Colace) 2 tablet PO BID [facility] Last Admin: 09/19/17 08:23 Dose: 2 tablet Assessment/Plan Debility s/p acute ischemic strokes of the L MCA and LICA, Complicated by prior stroke, AVM slips, New onset AFib, right sided deficits., severe aphasia and dysphagia. Goal of rehab is zoroastrianism of functional independence. Plan: - Physical therapy for gait and balance - Occupational Therapy for ADLs - Speech therapy - As needed analgesics - Bowel protocol - Stroke prevention on ASA, Statin and Lovenox, will transition to Eliquis after CT scan, will then D/C the ASA and the Lovenox - DVT prophylaxis: SCDs, ASA, Lovenox - New onset PAF - to start OAC (eliquis) if repeat CT scan is good. will continue Amio and taper according to direction from [facility]. - CAD s/p prior CABGx3 - asa, statin, Coreg, eunice, Procardia, hydralazine - Prediabetes - sliding scale insulin. A1C 5.8, - Asthma/Emphysema with chronic hypoxic respiratory failure - IS, wean as tolerated. Aerosols PRN. Recent COPD exacerbation, and Flu which was treated with 5 days of steroids and 5 days of Tamiflu - HTN - continue current therapy. - Dysphagia - mechanical soft, thin liquids. - Hx Systolic CHF and cardiomyopathy - continue current meds, avoid overhydration. Monitor for fluid overload. - Nicotine abuse - was smoking up to this stroke admission. Patch if desired. Cessation encouraged. - CT Scan brain, will start Eliquis if no changes are noted. - Scattered Rhonchi => Chest X-ray, and scheduled aerosols, chest x-ray negative for infiltrates - D/C the Symbicort, patient unable to utilize correctly, started DuoNeb and Pulmicort - Patient is a DNR-[facility]
[2017-09-19 17:29] LABS: Mucous, Urine 0 SEEN /hpf (<or=2+)
[2017-09-19 17:30] LABS: Color, Urine Yellow (Yellow); Glucose, Dipstick Normal (Normal); Ketone-Dipstick Negative (Negative); Leukocyte Esterase-Dipstick 500 /ul (Negative); Nitrite-Dipstick Positive (Negative); Occult Blood-Urine 50 /ul (Negative); Protein-Dipstick 100 mg/dl (Negative); Specific Gravity, Urine 1.015 (1.002-1.030); Urine Bilirubin Dipstick Negative (Negative); Urine Clarity Cloudy (Clear); Urine Urobilinogen Normal (Normal)
[2017-09-19 17:38] LABS: Bacteria 2+ /hpf (None Seen); White Blood Cells >100 SEEN /hpf (0-5)
[2017-09-19 17:39] LABS: Red Blood Cells-Urine 25-50 SEEN /hpf (0-5); Squamous Epithelial Cells - UA 0-5 SEEN /hpf (5-10)
--- NOTE | 2017-09-19 17:49 | NURSING ---
Pt refused to do PT this afternoon and she also refused to get up for dinner
--- NOTE | 2017-09-19 18:02 | NURSING ---
Dr. Barreto sent arch wireless text page regarding UA result. Patient afebrile, cbc done today and wbc wnl, resting comfortably in bed, denies any complaints.
[2017-09-19] MEDS: Budesonide Respules 0.5 MG/2 ML AMPUL.NEB. INHALATION (19:24)
[2017-09-19] MEDS: Cephalexin 500 MG Capsule PO (19:50)
[2017-09-19] MEDS: Atorvastatin Calcium 40 MG Tablet PO (19:52)
[2017-09-19] MEDS: Mirtazapine 15 MG Tablet 30 MG PO (19:53)
[2017-09-20] VITALS (8 sets, daily range): BP systolic 125–141; BP diastolic 55–63; PULSE 55–74; RESP 16; TEMP 36.6–36.7; O2SAT 93–98; BMI 30.4
--- NOTE | 2017-09-20 00:51 | NURSING ---
Reviewed and agree with LPNs fims and handoff
[2017-09-20] MEDS: Cephalexin 500 MG Capsule PO ×3 (05:17→21:45)
[2017-09-20] MEDS: Lisinopril 40 MG Tablet PO (08:00)
[2017-09-20] MEDS: Carvedilol 6.25 MG Tablet PO ×2 (08:00→17:25)
[2017-09-20] MEDS: Senna/Docusate Sodium 1 Tablet 2 TABLET PO (08:00)
[2017-09-20] MEDS: Amiodarone 200 MG Tablet PO (08:00)
[2017-09-20] MEDS: NIFEdipine 30 MG Tablet PO (08:00)
[2017-09-20] MEDS: APIXABAN 5 MG TABLET PO ×2 (08:01→22:20)
[2017-09-20] MEDS: Menthol/Lanolin/Calamine/Znox 113 GM Tube 1 APPLIC TOPICAL ×2 (08:34→21:45)
--- NOTE | 2017-09-20 12:00 | PCM.PN.NEU ---
Subjective: Patient seen and examined. The patient was more alert today, continues to have expressive aphasia, was able to pick the correct answer when given choice of three or more solutions. She is Tolerating therapy. No issues with GI/. - Physical Exam General: Alert, Oriented x3, Cooperative HEENT: Atraumatic, PERRLA, EOMI, Normocephalic Neck: Supple, No JVD, Negative Carotid Bruits Lungs: Clear to auscultation, Normal air movement Cardiovascular: Regular rate, No murmurs Abdomen: Bowel Sounds Present, Soft, Non Tender Extremities: No edema, Capillary Refill Less than 3 Seconds Skin: No rashes, No breakdown Musculoskeletal: No Tenderness to Palpation of Joints or Extremities Neurological: Cranial nerves II-XII grossly intact Psych/Mental Status: Normal Affect, Appropriate Vital Signs Temp Pulse Resp BP Pulse Ox 98.0 F 74 16 129/59 H 98 09/20/17 07:55 09/20/17 07:55 09/20/17 07:55 09/20/17 07:55 09/20/17 07:55 Oxygen Flow Rate (L/min) 2 Oxygen Delivery Method Room Air Weight: 81.7 kg Body Mass Index (BMI) 30.4 Finger Stick Blood Glucose 125 Intake and Output for Last 24 Hours 09/18/17 09/19/17 09/20/17 23:59 23:59 23:59 Intake Total 480 / 480 480 / 480 Balance 480 / 480 480 / 480 Microbiology Past 72 Hours 09/19/17 17:00 Urine Culture - Preliminary Urine Catheter - Catheter Presumptive E. coli Laboratory Tests Past 24 Hrs 09/19/17 17:00 Urine Color Yellow Urine Clarity Cloudy Urine pH 6.0 Ur Specific [place] 1.015 Urine Protein 100 H Urine Glucose (UA) Normal Urine Ketones Negative Urine Occult Blood 50 H Urine Nitrite Positive H Urine Bilirubin Negative Urine Urobilinogen Normal Ur Leukocyte Esterase 500 H Urine RBC 25-50 SEEN Urine WBC >100 SEEN Ur Squamous Epith Cells 0-5 SEEN Urine Bacteria 2+ Urine Mucus 0 SEEN Active Medications Albuterol Sulfate (Ventolin Hfa (Sp)) 1 puff INHALATION Q4H PRN PRN PRN Reason: SOB &/OR WHEEZING Albuterol/Ipratropium (Duoneb) 3 ml INHALATION Q4HWA.RT PRN PRN Reason: SOB &/OR WHEEZING Last Admin: 09/18/17 19:25 Dose: 3 ml Amiodarone HCl (Cordarone) 200 mg PO DAILY [facility] Last Admin: 09/20/17 08:00 Dose: 200 mg Apixaban (Eliquis) 5 mg PO BID [facility] Last Admin: 09/20/17 08:01 Dose: 5 mg Atorvastatin Calcium (Lipitor) 40 mg PO QHS [facility] Last Admin: 09/19/17 19:52 Dose: 40 mg Bisacodyl (Dulcolax) 10 mg RECTAL .PRN X 1 PRN PRN Reason: Constipation Budesonide (Pulmicort Aerosol) 0.5 mg INHALATION Q12H.RT [facility] Last Admin: 09/20/17 06:53 Dose: Not Given Calamine/Phenol (Calmoseptine Ointment) 1 applic TOPICAL BID [facility] PRN Reason: Protocol Last Admin: 09/20/17 08:34 Dose: 1 applicatio Carvedilol (Coreg) 6.25 mg PO BIDAC [facility] Last Admin: 09/20/17 08:00 Dose: 6.25 mg Cephalexin (Keflex) 500 mg PO Q8 [facility] Last Admin: 09/20/17 05:17 Dose: 500 mg Hydralazine HCl (Apresoline) 75 mg PO Q8 [facility] Last Admin: 09/20/17 05:17 Dose: 75 mg Lisinopril (Zestril) 40 mg PO DAILY [facility] Last Admin: 09/20/17 08:00 Dose: 40 mg Magnesium Hydroxide (Milk Of Magnesia) 30 ml PO .PRN X 1 PRN PRN Reason: Constipation Mirtazapine (Remeron) 30 mg PO QHS [facility] Last Admin: 09/19/17 19:53 Dose: 30 mg Nifedipine (Procardia Xl) 30 mg PO DAILY [facility] Last Admin: 09/20/17 08:00 Dose: 30 mg Senna/Docusate Sodium (Senokot-S, Evie-Colace) 2 tablet PO BID [facility] Last Admin: 09/20/17 08:00 Dose: 2 tablet Assessment/Plan Debility s/p acute ischemic strokes of the L MCA and LICA, Complicated by prior stroke, AVM slips, New onset AFib, right sided deficits., severe aphasia and dysphagia. Goal of rehab is tenriism of functional independence. Plan: - Physical therapy for gait and balance - Occupational Therapy for ADLs - Speech therapy - As needed analgesics - Bowel protocol - Stroke prevention on ASA, Statin and Lovenox, will transition to Eliquis after CT scan, will then D/C the ASA and the Lovenox - DVT prophylaxis: SCDs, ASA, Lovenox - New onset PAF - to start OAC (eliquis) if repeat CT scan is good. will continue Amio and taper according to direction from [facility]. - CAD s/p prior CABGx3 - asa, statin, Coreg, eunice, Procardia, hydralazine - Prediabetes - sliding scale insulin. A1C 5.8, - Asthma/Emphysema with chronic hypoxic respiratory failure - IS, wean as tolerated. Aerosols PRN. Recent COPD exacerbation, and Flu which was treated with 5 days of steroids and 5 days of Tamiflu - HTN - continue current therapy. - Dysphagia - mechanical soft, thin liquids. - Hx Systolic CHF and cardiomyopathy - continue current meds, avoid overhydration. Monitor for fluid overload. - Nicotine abuse - was smoking up to this stroke admission. Patch if desired. Cessation encouraged. - CT Scan brain, will start Eliquis if no changes are noted. - Scattered Rhonchi => Chest X-ray, and scheduled aerosols, chest x-ray negative for infiltrates - D/C the Symbicort, patient unable to utilize correctly, started DuoNeb and Pulmicort - Patient is a DNR-[facility]
--- NOTE | 2017-09-20 12:06 | PN.NEURO_ITS ---
Subjective: Patient seen and examined. The patient was more alert today, continues to have expressive aphasia, was able to pick the correct answer when given choice of three or more solutions. She is Tolerating therapy. No issues with GI/. - Physical Exam General: Alert, Oriented x3, Cooperative HEENT: Atraumatic, PERRLA, EOMI, Normocephalic Neck: Supple, No JVD, Negative Carotid Bruits Lungs: Clear to auscultation, Normal air movement Cardiovascular: Regular rate, No murmurs Abdomen: Bowel Sounds Present, Soft, Non Tender Extremities: No edema, Capillary Refill Less than 3 Seconds Skin: No rashes, No breakdown Musculoskeletal: No Tenderness to Palpation of Joints or Extremities Neurological: Cranial nerves II-XII grossly intact Psych/Mental Status: Normal Affect, Appropriate Vital Signs Temp Pulse Resp BP Pulse Ox 98.0 F 74 16 129/59 H 98 09/20/17 07:55 09/20/17 07:55 09/20/17 07:55 09/20/17 07:55 09/20/17 07:55 Oxygen Flow Rate (L/min) 2 Oxygen Delivery Method Room Air Weight: 81.7 kg Body Mass Index (BMI) 30.4 Finger Stick Blood Glucose 125 Intake and Output for Last 24 Hours 09/18/17 09/19/17 09/20/17 23:59 23:59 23:59 Intake Total 480 / 480 480 / 480 Balance 480 / 480 480 / 480 Microbiology Past 72 Hours 09/19/17 17:00 Urine Culture - Preliminary Urine Catheter - Catheter Presumptive E. coli Laboratory Tests Past 24 Hrs 09/19/17 17:00 Urine Color Yellow Urine Clarity Cloudy Urine pH 6.0 Ur Specific [place] 1.015 Urine Protein 100 H Urine Glucose (UA) Normal Urine Ketones Negative Urine Occult Blood 50 H Urine Nitrite Positive H Urine Bilirubin Negative Urine Urobilinogen Normal Ur Leukocyte Esterase 500 H Urine RBC 25-50 SEEN Urine WBC >100 SEEN Ur Squamous Epith Cells 0-5 SEEN Urine Bacteria 2+ Urine Mucus 0 SEEN Active Medications Albuterol Sulfate (Ventolin Hfa (Sp)) 1 puff INHALATION Q4H PRN PRN PRN Reason: SOB &/OR WHEEZING Albuterol/Ipratropium (Duoneb) 3 ml INHALATION Q4HWA.RT PRN PRN Reason: SOB &/OR WHEEZING Last Admin: 09/18/17 19:25 Dose: 3 ml Amiodarone HCl (Cordarone) 200 mg PO DAILY [facility] Last Admin: 09/20/17 08:00 Dose: 200 mg Apixaban (Eliquis) 5 mg PO BID [facility] Last Admin: 09/20/17 08:01 Dose: 5 mg Atorvastatin Calcium (Lipitor) 40 mg PO QHS [facility] Last Admin: 09/19/17 19:52 Dose: 40 mg Bisacodyl (Dulcolax) 10 mg RECTAL .PRN X 1 PRN PRN Reason: Constipation Budesonide (Pulmicort Aerosol) 0.5 mg INHALATION Q12H.RT [facility] Last Admin: 09/20/17 06:53 Dose: Not Given Calamine/Phenol (Calmoseptine Ointment) 1 applic TOPICAL BID [facility] PRN Reason: Protocol Last Admin: 09/20/17 08:34 Dose: 1 applicatio Carvedilol (Coreg) 6.25 mg PO BIDAC [facility] Last Admin: 09/20/17 08:00 Dose: 6.25 mg Cephalexin (Keflex) 500 mg PO Q8 [facility] Last Admin: 09/20/17 05:17 Dose: 500 mg Hydralazine HCl (Apresoline) 75 mg PO Q8 [facility] Last Admin: 09/20/17 05:17 Dose: 75 mg Lisinopril (Zestril) 40 mg PO DAILY [facility] Last Admin: 09/20/17 08:00 Dose: 40 mg Magnesium Hydroxide (Milk Of Magnesia) 30 ml PO .PRN X 1 PRN PRN Reason: Constipation Mirtazapine (Remeron) 30 mg PO QHS [facility] Last Admin: 09/19/17 19:53 Dose: 30 mg Nifedipine (Procardia Xl) 30 mg PO DAILY [facility] Last Admin: 09/20/17 08:00 Dose: 30 mg Senna/Docusate Sodium (Senokot-S, Evie-Colace) 2 tablet PO BID [facility] Last Admin: 09/20/17 08:00 Dose: 2 tablet Assessment/Plan Debility s/p acute ischemic strokes of the L MCA and LICA, Complicated by prior stroke, AVM slips, New onset AFib, right sided deficits., severe aphasia and dysphagia. Goal of rehab is latter-day of functional independence. Plan: - Physical therapy for gait and balance - Occupational Therapy for ADLs - Speech therapy - As needed analgesics - Bowel protocol - Stroke prevention on ASA, Statin and Lovenox, will transition to Eliquis after CT scan, will then D/C the ASA and the Lovenox - DVT prophylaxis: SCDs, ASA, Lovenox - New onset PAF - to start OAC (eliquis) if repeat CT scan is good. will continue Amio and taper according to direction from [facility]. - CAD s/p prior CABGx3 - asa, statin, Coreg, eunice, Procardia, hydralazine - Prediabetes - sliding scale insulin. A1C 5.8, - Asthma/Emphysema with chronic hypoxic respiratory failure - IS, wean as tolerated. Aerosols PRN. Recent COPD exacerbation, and Flu which was treated with 5 days of steroids and 5 days of Tamiflu - HTN - continue current therapy. - Dysphagia - mechanical soft, thin liquids. - Hx Systolic CHF and cardiomyopathy - continue current meds, avoid overhydration. Monitor for fluid overload. - Nicotine abuse - was smoking up to this stroke admission. Patch if desired. Cessation encouraged. - CT Scan brain, will start Eliquis if no changes are noted. - Scattered Rhonchi => Chest X-ray, and scheduled aerosols, chest x-ray negative for infiltrates - D/C the Symbicort, patient unable to utilize correctly, started DuoNeb and Pulmicort - Patient is a DNR-[facility]
[2017-09-20] MEDS: Budesonide Respules 0.5 MG/2 ML AMPUL.NEB. INHALATION (20:02)
[2017-09-20] MEDS: Atorvastatin Calcium 40 MG Tablet PO (21:45)
[2017-09-20] MEDS: Mirtazapine 15 MG Tablet 30 MG PO (21:45)
--- NOTE | 2017-09-20 22:05 | NURSING ---
pts daughter concerned of swelling in right lower extremity. daughter expresses possible concerns of a blood clot. pt shows no redness, or tenderness in the right lower extremity. negative homans sign. this nurse informed the RN of the daughters concern.
[2017-09-21] VITALS (7 sets, daily range): BP systolic 136–145; BP diastolic 58–63; PULSE 60–75; RESP 16–20; TEMP 36.8–36.9; O2SAT 93–94; BMI 30.4
--- NOTE | 2017-09-21 03:24 | NURSING ---
Reviewed and agree with LPNs fims and handoff
[2017-09-21] MEDS: Cephalexin 500 MG Capsule PO ×2 (05:43→13:06)
[2017-09-21] MEDS: Budesonide Respules 0.5 MG/2 ML AMPUL.NEB. INHALATION ×2 (07:25→19:34)
[2017-09-21] MEDS: Carvedilol 6.25 MG Tablet PO ×2 (07:34→17:40)
[2017-09-21] MEDS: APIXABAN 5 MG TABLET PO ×2 (07:56→20:04)
[2017-09-21] MEDS: NIFEdipine 30 MG Tablet PO (07:56)
[2017-09-21] MEDS: Amiodarone 200 MG Tablet PO (07:56)
[2017-09-21] MEDS: Lisinopril 40 MG Tablet PO (07:56)
[2017-09-21] MEDS: Menthol/Lanolin/Calamine/Znox 113 GM Tube 1 APPLIC TOPICAL ×2 (11:28→20:02)
--- NOTE | 2017-09-21 13:53 | EKG12_ITS ---
Test Reason : NEW MED Blood Pressure : / mmHG Vent. Rate : 062 BPM Atrial Rate : 062 BPM P-R Int : 126 ms QRS Dur : 180 ms QT Int : 510 ms P-R-T Axes : 096 266 075 degrees QTc Int : 517 ms Poor data quality, interpretation may be adversely affected Suspect arm lead reversal, interpretation assumes no reversal Sinus rhythm Left bundle branch block Abnormal ECG Confirmed by INNA HANNAH ([id number]), material expeditor DENNY DECKER ([id number] on 09/27/2017 2:47:08 PM Referred By: Candy Lara Confirmed By:INNA HANNAH
--- NOTE | 2017-09-21 17:06 | PCM.PN.HOSP ---
Subjective: Patient denies lower urinary tract symptoms like burning micturition, increased frequency. UA positive of pyuria. Urine culture shows E. coli resistant to cefazolin but sensitive to ceftriaxone on fluoroquinolones Objective: General: Alert, Oriented x3, Cooperative HEENT: Atraumatic, PERRLA, EOMI, Normocephalic Neck: Supple, No JVD, Negative Carotid Bruits Lungs: Clear to auscultation, No rhonchi, No wheeze, No rales, Diminished Cardiovascular: Regular rate, Regular Rhythm, Normal S1, Normal S2, No murmurs Abdomen: Bowel Sounds Present, Soft, Non Tender, Non-Distended Extremities: No edema, Capillary Refill Less than 3 Seconds Skin: No rashes, No breakdown Musculoskeletal: No Tenderness to Palpation of Joints or Extremities, Arthritic Changes Neurological: Cranial nerves II-XII grossly intact, - - Right-sided weakness. Limbs fall on the bed without radiation. Left upper and lower extremity 5/5 at major joints. Psych/Mental Status: Normal Affect, Appropriate Vitals/I&O's: Vital Signs Temp Pulse Resp BP Pulse Ox 98.3 F 60 16 141/62 H 93 09/21/17 07:53 09/21/17 13:06 09/21/17 07:53 09/21/17 07:53 09/21/17 07:53 Oxygen Flow Rate (L/min) 2 Oxygen Delivery Method Room Air Weight: 180 lb 1.883 oz Body Mass Index (BMI) 30.4 Finger Stick Blood Glucose 125 Intake and Output for Last 24 Hours 09/19/17 09/20/17 09/21/17 23:59 23:59 23:59 Intake Total 480 / 480 360 / 360 Balance 480 / 480 360 / 360 Microbiology Past 72 Hours 09/19/17 17:00 Urine Catheter - Catheter Urine Culture - Final Presumptive E. coli Current Medications Albuterol Sulfate (Ventolin Hfa (Sp)) 1 puff INHALATION Q4H PRN PRN PRN Reason: SOB &/OR WHEEZING Albuterol/Ipratropium (Duoneb) 3 ml INHALATION Q4HWA.RT PRN PRN Reason: SOB &/OR WHEEZING Last Admin: 09/18/17 19:25 Dose: 3 ml Amiodarone HCl (Cordarone) 200 mg PO DAILY [facility] Last Admin: 09/21/17 07:56 Dose: 200 mg Apixaban (Eliquis) 5 mg PO BID [facility] Last Admin: 09/21/17 07:56 Dose: 5 mg Atorvastatin Calcium (Lipitor) 40 mg PO QHS [facility] Last Admin: 09/20/17 21:45 Dose: 40 mg Bisacodyl (Dulcolax) 10 mg RECTAL .PRN X 1 PRN PRN Reason: Constipation Budesonide (Pulmicort Aerosol) 0.5 mg INHALATION Q12H.RT [facility] Last Admin: 09/21/17 07:25 Dose: 0.5 mg Calamine/Phenol (Calmoseptine Ointment) 1 applic TOPICAL BID [facility] PRN Reason: Protocol Last Admin: 09/21/17 11:28 Dose: 1 applicatio Carvedilol (Coreg) 6.25 mg PO BIDAC [facility] Last Admin: 09/21/17 07:34 Dose: 6.25 mg Ciprofloxacin HCl (Cipro) 500 mg PO BID [facility] Stop: 09/23/17 22:01 Hydralazine HCl (Apresoline) 75 mg PO Q8 [facility] Last Admin: 09/21/17 13:06 Dose: 75 mg Lisinopril (Zestril) 40 mg PO DAILY [facility] Last Admin: 09/21/17 07:56 Dose: 40 mg Magnesium Hydroxide (Milk Of Magnesia) 30 ml PO .PRN X 1 PRN PRN Reason: Constipation Mirtazapine (Remeron) 30 mg PO QHS [facility] Last Admin: 09/20/17 21:45 Dose: 30 mg Nifedipine (Procardia Xl) 30 mg PO DAILY [facility] Last Admin: 09/21/17 07:56 Dose: 30 mg Senna/Docusate Sodium (Senokot-S, Evie-Colace) 2 tablet PO BID [facility] Last Admin: 09/21/17 07:58 Dose: Not Given Medical Necessity - Tobacco Use Smoking Status: Current every day smoker Tobacco Use: Cigarettes Assessment/Plan The patient is 71-year-old female who is admitted in acute rehab for acute ischemic strokes of the L MCA and LICA, Complicated by prior stroke, AVM slips, New onset AFib, right sided deficits., severe aphasia and dysphagia. Goal of rehab is [facility] of functional independence. 1. Acute CVA continue Eliquis, High-intensity statin. PT/OT/ST. Seen by neurologist. 2. Paroxysmal atrial fibrillation: Previous EKG on August 25, 2017 shows sinus rhythm with PACs. Left bundle branch block. Amiodarone on Eliquis follow up with cardiology as outpt 3. Acute cystitis/lower UTI: UA is positive of pyuria. Urine culture shows E. coli sensitive to ceftriaxone but resistant to cefazolin. DC Keflex. Started on ceftriaxone 1 g IV daily for 3 days. Initially thought to start Cipro with a QT on EKG is 502 ms which is similar to the previous EKG of August 25, 2017 DVT proph: On Eliquis. Code Visit Inpatient E&M: 05366 Subs Hosp L2
--- NOTE | 2017-09-21 17:12 | PN_ITS ---
Subjective: Patient denies lower urinary tract symptoms like burning micturition, increased frequency. UA positive of pyuria. Urine culture shows E. coli resistant to cefazolin but sensitive to ceftriaxone on fluoroquinolones Objective: General: Alert, Oriented x3, Cooperative HEENT: Atraumatic, PERRLA, EOMI, Normocephalic Neck: Supple, No JVD, Negative Carotid Bruits Lungs: Clear to auscultation, No rhonchi, No wheeze, No rales, Diminished Cardiovascular: Regular rate, Regular Rhythm, Normal S1, Normal S2, No murmurs Abdomen: Bowel Sounds Present, Soft, Non Tender, Non-Distended Extremities: No edema, Capillary Refill Less than 3 Seconds Skin: No rashes, No breakdown Musculoskeletal: No Tenderness to Palpation of Joints or Extremities, Arthritic Changes Neurological: Cranial nerves II-XII grossly intact, - - Right-sided weakness. Limbs fall on the bed without radiation. Left upper and lower extremity 5/5 at major joints. Psych/Mental Status: Normal Affect, Appropriate Vitals/I&O's: Vital Signs Temp Pulse Resp BP Pulse Ox 98.3 F 60 16 141/62 H 93 09/21/17 07:53 09/21/17 13:06 09/21/17 07:53 09/21/17 07:53 09/21/17 07:53 Oxygen Flow Rate (L/min) 2 Oxygen Delivery Method Room Air Weight: 180 lb 1.883 oz Body Mass Index (BMI) 30.4 Finger Stick Blood Glucose 125 Intake and Output for Last 24 Hours 09/19/17 09/20/17 09/21/17 23:59 23:59 23:59 Intake Total 480 / 480 360 / 360 Balance 480 / 480 360 / 360 Microbiology Past 72 Hours 09/19/17 17:00 Urine Catheter - Catheter Urine Culture - Final Presumptive E. coli Current Medications Albuterol Sulfate (Ventolin Hfa (Sp)) 1 puff INHALATION Q4H PRN PRN PRN Reason: SOB &/OR WHEEZING Albuterol/Ipratropium (Duoneb) 3 ml INHALATION Q4HWA.RT PRN PRN Reason: SOB &/OR WHEEZING Last Admin: 09/18/17 19:25 Dose: 3 ml Amiodarone HCl (Cordarone) 200 mg PO DAILY [facility] Last Admin: 09/21/17 07:56 Dose: 200 mg Apixaban (Eliquis) 5 mg PO BID [facility] Last Admin: 09/21/17 07:56 Dose: 5 mg Atorvastatin Calcium (Lipitor) 40 mg PO QHS [facility] Last Admin: 09/20/17 21:45 Dose: 40 mg Bisacodyl (Dulcolax) 10 mg RECTAL .PRN X 1 PRN PRN Reason: Constipation Budesonide (Pulmicort Aerosol) 0.5 mg INHALATION Q12H.RT [facility] Last Admin: 09/21/17 07:25 Dose: 0.5 mg Calamine/Phenol (Calmoseptine Ointment) 1 applic TOPICAL BID [facility] PRN Reason: Protocol Last Admin: 09/21/17 11:28 Dose: 1 applicatio Carvedilol (Coreg) 6.25 mg PO BIDAC [facility] Last Admin: 09/21/17 07:34 Dose: 6.25 mg Ciprofloxacin HCl (Cipro) 500 mg PO BID [facility] Stop: 09/23/17 22:01 Hydralazine HCl (Apresoline) 75 mg PO Q8 [facility] Last Admin: 09/21/17 13:06 Dose: 75 mg Lisinopril (Zestril) 40 mg PO DAILY [facility] Last Admin: 09/21/17 07:56 Dose: 40 mg Magnesium Hydroxide (Milk Of Magnesia) 30 ml PO .PRN X 1 PRN PRN Reason: Constipation Mirtazapine (Remeron) 30 mg PO QHS [facility] Last Admin: 09/20/17 21:45 Dose: 30 mg Nifedipine (Procardia Xl) 30 mg PO DAILY [facility] Last Admin: 09/21/17 07:56 Dose: 30 mg Senna/Docusate Sodium (Senokot-S, Evie-Colace) 2 tablet PO BID [facility] Last Admin: 09/21/17 07:58 Dose: Not Given Medical Necessity - Tobacco Use Smoking Status: Current every day smoker Tobacco Use: Cigarettes Assessment/Plan The patient is 71-year-old female who is admitted in acute rehab for acute ischemic strokes of the L MCA and LICA, Complicated by prior stroke, AVM slips, New onset AFib, right sided deficits., severe aphasia and dysphagia. Goal of rehab is [facility] of functional independence. 1. Acute CVA * continue Eliquis, High-intensity statin. * PT/OT/ST. Seen by neurologist. 2. Paroxysmal atrial fibrillation: Previous EKG on August 25, 2017 shows sinus rhythm with PACs. Left bundle branch block. * Amiodarone * on Eliquis * follow up with cardiology as outpt 3. Acute cystitis/lower UTI: UA is positive of pyuria. Urine culture shows E. coli sensitive to ceftriaxone but resistant to cefazolin. DC Keflex. Started on ceftriaxone 1 g IV daily for 3 days. Initially thought to start Cipro with a QT on EKG is 502 ms which is similar to the previous EKG of August 25, 2017 DVT proph: On Eliquis. Code Visit Inpatient E&M: 20240 Subs Hosp L2
--- NOTE | 2017-09-21 19:00 | NURSING ---
Next shift nurse aware of patient needing IV placed.
[2017-09-21] MEDS: Mirtazapine 15 MG Tablet 30 MG PO (19:58)
[2017-09-21] MEDS: Senna/Docusate Sodium 1 Tablet 2 TABLET PO (19:59)
[2017-09-21] MEDS: Atorvastatin Calcium 40 MG Tablet PO (19:59)
--- NOTE | 2017-09-21 20:52 | NURSING ---
Nurse addressed pt daughter and granddaughter about visiting at this time as they were just entering pt room. Pt is soundly sleeping and nurse was told that dtr was given special permission to visit. Nurse affirmed this but reminded dtr that pt is soundly sleeping and needs her sleep when she is so weary. Paulineter was asked to wait in waiting area. Dtr visited for less than 10 minutes and pt resumes sleep.
--- NOTE | 2017-09-21 20:55 | NURSING ---
Pt adamant about not getting an IV for prescribed antibiotic. Pt voiced firm objection loudly. After trying to reason with pt, hospitalist was called and new prescription PO ordered.
[2017-09-21] MEDS: Ciprofloxacin 500 MG Tablet PO (23:18)
[2017-09-22] VITALS (8 sets, daily range): BP systolic 127–141; BP diastolic 54–69; PULSE 54–63; RESP 17; TEMP 36.4–36.9; O2SAT 92–95; BMI 30.4
--- NOTE | 2017-09-22 03:46 | NURSING ---
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
--- NOTE | 2017-09-22 05:48 | NURSING ---
pt noted to be very tired this shift including this am, having difficulty keeping eyes open . staff completed all of adls this am, pt will do at least part of the them. rn made aware
[2017-09-22] MEDS: NIFEdipine 30 MG Tablet PO (07:32)
[2017-09-22] MEDS: Lisinopril 40 MG Tablet PO (07:32)
[2017-09-22] MEDS: Ciprofloxacin 500 MG Tablet PO ×2 (07:33→20:16)
[2017-09-22] MEDS: APIXABAN 5 MG TABLET PO ×2 (07:33→20:13)
[2017-09-22] MEDS: Senna/Docusate Sodium 1 Tablet 2 TABLET PO ×2 (07:33→20:13)
[2017-09-22] MEDS: Carvedilol 6.25 MG Tablet PO ×2 (07:33→16:54)
[2017-09-22] MEDS: Amiodarone 200 MG Tablet PO (07:33)
[2017-09-22] MEDS: Menthol/Lanolin/Calamine/Znox 113 GM Tube 1 APPLIC TOPICAL ×2 (07:36→20:16)
--- NOTE | 2017-09-22 13:53 | NURSING ---
patient refused lunch and stated, i'm not hungry. multiple attempts to assist therapist to help patient sit up in chair. she stated, no multiple times and pulled covers back of herself. this nurse explained the benefits of rehab and encourage to sit up in chair. she continues to refuse.
--- NOTE | 2017-09-22 16:26 | PCM.PN.HOSP ---
Subjective: Nurse called me that patient is mild lethargic and tired. No recent BMP. He has BMP on 09/06/2017 shows BUN 30 but normal electrolytes. Vitals/I&O's: Vital Signs Temp Pulse Resp BP Pulse Ox 98.4 F 58 L 17 132/54 H 92 09/22/17 07:13 09/22/17 13:49 09/22/17 07:13 09/22/17 13:30 09/22/17 07:13 Oxygen Flow Rate (L/min) 2 Oxygen Delivery Method Room Air Weight: 180 lb 1.883 oz Body Mass Index (BMI) 30.4 Finger Stick Blood Glucose 125 Intake and Output for Last 24 Hours 09/20/17 09/21/17 09/22/17 23:59 23:59 23:59 Intake Total 360 / 360 240 / 240 60 / 60 Balance 360 / 360 240 / 240 60 / 60 General: Alert, Oriented x3, Cooperative HEENT: Atraumatic, PERRLA, EOMI, Normocephalic Neck: Supple, No JVD, Negative Carotid Bruits Lungs: Clear to auscultation, No rhonchi, No wheeze, Diminished Cardiovascular: Regular rate, Regular Rhythm, Normal S1, Normal S2, No murmurs Abdomen: Bowel Sounds Present, Soft, Non Tender Extremities: No edema, Capillary Refill Less than 3 Seconds Skin: No rashes, No breakdown Musculoskeletal: No Tenderness to Palpation of Joints or Extremities, - - Limbs fall on the bed without resistance. Right upper and lower extremity weak. Neurological: Cranial nerves II-XII grossly intact Psych/Mental Status: Normal Affect, Appropriate Microbiology Past 72 Hours 09/19/17 17:00 Urine Catheter - Catheter Urine Culture - Final Presumptive E. coli Current Medications Albuterol Sulfate (Ventolin Hfa (Sp)) 1 puff INHALATION Q4H PRN PRN PRN Reason: SOB &/OR WHEEZING Albuterol/Ipratropium (Duoneb) 3 ml INHALATION Q4HWA.RT PRN PRN Reason: SOB &/OR WHEEZING Last Admin: 09/18/17 19:25 Dose: 3 ml Amiodarone HCl (Cordarone) 200 mg PO DAILY [facility] Last Admin: 09/22/17 07:33 Dose: 200 mg Apixaban (Eliquis) 5 mg PO BID [facility] Last Admin: 09/22/17 07:33 Dose: 5 mg Atorvastatin Calcium (Lipitor) 40 mg PO QHS [facility] Last Admin: 09/21/17 19:59 Dose: 40 mg Bisacodyl (Dulcolax) 10 mg RECTAL .PRN X 1 PRN PRN Reason: Constipation Budesonide (Pulmicort Aerosol) 0.5 mg INHALATION Q12H.RT [facility] Last Admin: 09/22/17 07:15 Dose: Not Given Calamine/Phenol (Calmoseptine Ointment) 1 applic TOPICAL BID [facility] PRN Reason: Protocol Last Admin: 09/22/17 07:36 Dose: 1 applicatio Carvedilol (Coreg) 6.25 mg PO BIDAC [facility] Last Admin: 09/22/17 07:33 Dose: 6.25 mg Ciprofloxacin HCl (Cipro) 500 mg PO BID [facility] Last Admin: 09/22/17 07:33 Dose: 500 mg Hydralazine HCl (Apresoline) 75 mg PO Q8 [facility] Last Admin: 09/22/17 13:49 Dose: 75 mg Lisinopril (Zestril) 40 mg PO DAILY [facility] Last Admin: 09/22/17 07:32 Dose: 40 mg Magnesium Hydroxide (Milk Of Magnesia) 30 ml PO .PRN X 1 PRN PRN Reason: Constipation Mirtazapine (Remeron) 30 mg PO QHS [facility] Last Admin: 09/21/17 19:58 Dose: 30 mg Nifedipine (Procardia Xl) 30 mg PO DAILY [facility] Last Admin: 09/22/17 07:32 Dose: 30 mg Senna/Docusate Sodium (Senokot-S, Evie-Colace) 2 tablet PO BID [facility] Last Admin: 09/22/17 07:33 Dose: 2 tablet Medical Necessity - Tobacco Use Smoking Status: Current every day smoker Tobacco Use: Cigarettes Assessment/Plan The patient is 71-year-old female who is admitted in acute rehab for acute ischemic strokes of the L MCA and LICA, Complicated by prior stroke, AVM slips, New onset AFib, right sided deficits., severe aphasia and dysphagia. Goal of rehab is [facility] of functional independence. 1. Acute CVA continue Eliquis, High-intensity statin. PT/OT/ST. Seen by neurologist. Patient did not had much improvement of right-sided weakness 2. Paroxysmal atrial fibrillation: Previous EKG on August 25, 2017 shows sinus rhythm with PACs. Left bundle branch block. Amiodarone on Eliquis follow up with cardiology as outpt Mild lethargy/weakness, possible due to UTI/dehydration: BMP ordered. Follow and if underlying electrolyte abnormalities will correct. 3. Acute cystitis/lower UTI: UA is positive of pyuria. Urine culture shows E. coli sensitive to ceftriaxone but resistant to cefazolin. DC Keflex. Started on ceftriaxone 1 g IV daily for 3 days. Patient did not want IVs/IM Rocephin. Change to Cipro, QTc on EKG is 502 ms which is similar to the previous EKG of August 25, 2017. Repeat 12-lead EKG on Sunday. DVT proph: On Eliquis. Code Visit Inpatient E&M: 89987 Subs Hosp L2
--- NOTE | 2017-09-22 16:32 | PN_ITS ---
Subjective: Nurse called me that patient is mild lethargic and tired. No recent BMP. He has BMP on 09/06/2017 shows BUN 30 but normal electrolytes. Vitals/I&O's: Vital Signs Temp Pulse Resp BP Pulse Ox 98.4 F 58 L 17 132/54 H 92 09/22/17 07:13 09/22/17 13:49 09/22/17 07:13 09/22/17 13:30 09/22/17 07:13 Oxygen Flow Rate (L/min) 2 Oxygen Delivery Method Room Air Weight: 180 lb 1.883 oz Body Mass Index (BMI) 30.4 Finger Stick Blood Glucose 125 Intake and Output for Last 24 Hours 09/20/17 09/21/17 09/22/17 23:59 23:59 23:59 Intake Total 360 / 360 240 / 240 60 / 60 Balance 360 / 360 240 / 240 60 / 60 General: Alert, Oriented x3, Cooperative HEENT: Atraumatic, PERRLA, EOMI, Normocephalic Neck: Supple, No JVD, Negative Carotid Bruits Lungs: Clear to auscultation, No rhonchi, No wheeze, Diminished Cardiovascular: Regular rate, Regular Rhythm, Normal S1, Normal S2, No murmurs Abdomen: Bowel Sounds Present, Soft, Non Tender Extremities: No edema, Capillary Refill Less than 3 Seconds Skin: No rashes, No breakdown Musculoskeletal: No Tenderness to Palpation of Joints or Extremities, - - Limbs fall on the bed without resistance. Right upper and lower extremity weak. Neurological: Cranial nerves II-XII grossly intact Psych/Mental Status: Normal Affect, Appropriate Microbiology Past 72 Hours 09/19/17 17:00 Urine Catheter - Catheter Urine Culture - Final Presumptive E. coli Current Medications Albuterol Sulfate (Ventolin Hfa (Sp)) 1 puff INHALATION Q4H PRN PRN PRN Reason: SOB &/OR WHEEZING Albuterol/Ipratropium (Duoneb) 3 ml INHALATION Q4HWA.RT PRN PRN Reason: SOB &/OR WHEEZING Last Admin: 09/18/17 19:25 Dose: 3 ml Amiodarone HCl (Cordarone) 200 mg PO DAILY [facility] Last Admin: 09/22/17 07:33 Dose: 200 mg Apixaban (Eliquis) 5 mg PO BID [facility] Last Admin: 09/22/17 07:33 Dose: 5 mg Atorvastatin Calcium (Lipitor) 40 mg PO QHS [facility] Last Admin: 09/21/17 19:59 Dose: 40 mg Bisacodyl (Dulcolax) 10 mg RECTAL .PRN X 1 PRN PRN Reason: Constipation Budesonide (Pulmicort Aerosol) 0.5 mg INHALATION Q12H.RT [facility] Last Admin: 09/22/17 07:15 Dose: Not Given Calamine/Phenol (Calmoseptine Ointment) 1 applic TOPICAL BID [facility] PRN Reason: Protocol Last Admin: 09/22/17 07:36 Dose: 1 applicatio Carvedilol (Coreg) 6.25 mg PO BIDAC [facility] Last Admin: 09/22/17 07:33 Dose: 6.25 mg Ciprofloxacin HCl (Cipro) 500 mg PO BID [facility] Last Admin: 09/22/17 07:33 Dose: 500 mg Hydralazine HCl (Apresoline) 75 mg PO Q8 [facility] Last Admin: 09/22/17 13:49 Dose: 75 mg Lisinopril (Zestril) 40 mg PO DAILY [facility] Last Admin: 09/22/17 07:32 Dose: 40 mg Magnesium Hydroxide (Milk Of Magnesia) 30 ml PO .PRN X 1 PRN PRN Reason: Constipation Mirtazapine (Remeron) 30 mg PO QHS [facility] Last Admin: 09/21/17 19:58 Dose: 30 mg Nifedipine (Procardia Xl) 30 mg PO DAILY [facility] Last Admin: 09/22/17 07:32 Dose: 30 mg Senna/Docusate Sodium (Senokot-S, Evie-Colace) 2 tablet PO BID [facility] Last Admin: 09/22/17 07:33 Dose: 2 tablet Medical Necessity - Tobacco Use Smoking Status: Current every day smoker Tobacco Use: Cigarettes Assessment/Plan The patient is 71-year-old female who is admitted in acute rehab for acute ischemic strokes of the L MCA and LICA, Complicated by prior stroke, AVM slips, New onset AFib, right sided deficits., severe aphasia and dysphagia. Goal of rehab is [facility]uism of functional independence. 1. Acute CVA * continue Eliquis, High-intensity statin. * PT/OT/ST. Seen by neurologist. Patient did not had much improvement of right -sided weakness 2. Paroxysmal atrial fibrillation: Previous EKG on August 25, 2017 shows sinus rhythm with PACs. Left bundle branch block. * Amiodarone * on Eliquis * follow up with cardiology as outpt Mild lethargy/weakness, possible due to UTI/dehydration: BMP ordered. Follow and if underlying electrolyte abnormalities will correct. 3. Acute cystitis/lower UTI: UA is positive of pyuria. Urine culture shows E. coli sensitive to ceftriaxone but resistant to cefazolin. DC Keflex. Started on ceftriaxone 1 g IV daily for 3 days. Patient did not want IVs/IM Rocephin. Change to Cipro, QTc on EKG is 502 ms which is similar to the previous EKG of August 25, 2017. Repeat 12-lead EKG on Sunday. DVT proph: On Eliquis. Code Visit Inpatient E&M: 85995 Subs Hosp L2
--- NOTE | 2017-09-22 16:55 | NURSING ---
increased drowsiness noted mid afternoon, no acute distress noted. Now after resting increase alertness noted. dr bullard ordered bmp.
[2017-09-22 18:03] LABS: Anion Gap 7 (5-15); BUN 22 mg/dL (7-18); Calcium,Total 8.8 mg/dL (8.5-10.1); Chloride 107 mmol/L (98-107); Creatinine, Serum 0.84 mg/dL (0.55-1.02); EST Glomerular Filtration Rate 70 mL/min (>60); Est Glom Filt Rate - Afr Amer 85 mL/min (>60); Estimated Creatinine Clearance 49.34 ml/min; Glucose 114 mg/dL (74-106); Sodium Level 141 mmol/L (136-145)
[2017-09-22] MEDS: Atorvastatin Calcium 40 MG Tablet PO (20:13)
[2017-09-22] MEDS: Mirtazapine 15 MG Tablet 30 MG PO (20:14)
--- NOTE | 2017-09-22 20:26 | NURSING ---
Per pt request, hs meds administered early to enable early bedtime & uninterupted rest.
[2017-09-23 05:09] VITALS: PULSE 62
[2017-09-23 07:25] VITALS: BP 134/64; PULSE 74; RESP 18; TEMP 36.8; O2SAT 93
[2017-09-23] MEDS: Menthol/Lanolin/Calamine/Znox 113 GM Tube 1 APPLIC TOPICAL ×2 (07:35→20:18)
[2017-09-23] MEDS: Carvedilol 6.25 MG Tablet PO ×2 (07:41→17:22)
[2017-09-23] MEDS: APIXABAN 5 MG TABLET PO ×2 (07:41→20:17)
[2017-09-23] MEDS: Ciprofloxacin 500 MG Tablet PO ×2 (07:41→20:17)
[2017-09-23] MEDS: Amiodarone 200 MG Tablet PO (07:41)
[2017-09-23] MEDS: NIFEdipine 30 MG Tablet PO (07:41)
[2017-09-23] MEDS: Senna/Docusate Sodium 1 Tablet 2 TABLET PO ×2 (07:41→20:16)
[2017-09-23] MEDS: Lisinopril 40 MG Tablet PO (07:41)
[2017-09-23 12:16] VITALS: BMI 30.4
[2017-09-23 13:40] VITALS: BP 125/58; PULSE 54
[2017-09-23 17:21] VITALS: BP 144/81; PULSE 59
[2017-09-23] MEDS: Atorvastatin Calcium 40 MG Tablet PO (20:17)
[2017-09-23] MEDS: Mirtazapine 15 MG Tablet 30 MG PO (20:17)
[2017-09-23 20:18] VITALS: BP 137/69; PULSE 78
[2017-09-23 20:55] VITALS: BMI 30.4
[2017-09-23 22:00] VITALS: BP 137/69; PULSE 94; RESP 17; TEMP 36.8; O2SAT 94
--- NOTE | 2017-09-24 05:09 | NURSING ---
ECG taken this a.m. with Sinus Terry, L bundle branch block
--- NOTE | 2017-09-24 05:55 | EKG12_ITS ---
Test Reason : AM EKG Blood Pressure : / mmHG Vent. Rate : 058 BPM Atrial Rate : 058 BPM P-R Int : 140 ms QRS Dur : 164 ms QT Int : 524 ms P-R-T Axes : 036 023 169 degrees QTc Int : 514 ms Sinus bradycardia Left bundle branch block Abnormal ECG When compared with ECG of 21-SEP-2017 16:20, MANUAL COMPARISON REQUIRED, DATA IS UNCONFIRMED Confirmed by INNA HANNAH ([id number]), editor publications DENNY DECKER ([id number]) on 09/27/2017 2:47:21 PM Referred By: Candy Lara Confirmed By:INNA HANNAH
[2017-09-24 06:08] VITALS: BP 152/81; PULSE 52
[2017-09-24 07:26] VITALS: BP 159/83; PULSE 61; RESP 18; TEMP 36.8; O2SAT 94
[2017-09-24] MEDS: Amiodarone 200 MG Tablet PO (07:32)
[2017-09-24] MEDS: APIXABAN 5 MG TABLET PO ×2 (07:32→22:06)
[2017-09-24] MEDS: Ciprofloxacin 500 MG Tablet PO ×2 (07:32→22:06)
[2017-09-24] MEDS: Lisinopril 40 MG Tablet PO (07:32)
[2017-09-24] MEDS: Carvedilol 6.25 MG Tablet PO ×2 (07:33→17:22)
[2017-09-24] MEDS: NIFEdipine 30 MG Tablet PO (07:33)
[2017-09-24] MEDS: Menthol/Lanolin/Calamine/Znox 113 GM Tube 1 APPLIC TOPICAL ×2 (07:34→22:06)
--- NOTE | 2017-09-24 09:16 | CT_ITS ---
STUDY: CT BRAIN WITHOUT CONTRAST REASON FOR EXAM: Female, 72 years old. Visual changes. History of left middle cerebral artery infarction. RADIATION DOSAGE (If Supplied By Facility): CTDIvol = ( 44.99 ) mGy, DLP = ( 745.49 ) mGycm TECHNIQUE: Transaxial CT imaging of the brain was performed without administration of intravenous contrast material. Individualized dose optimization techniques were used for this CT. COMPARISON: Comparison is made with prior examination dated September 07, 2017. FINDINGS: Normal soft tissue structures. Once again, the patient is status post right posterior occipital craniotomy. There is evidence of underlying encephalomalacia in the right cerebellar hemisphere. This is unchanged. Normal size ventricles and extra-axial spaces for the patient's age. Stable encephalomalacia in the posterior right parietal occipital lobes. Stable encephalomalacia in the left frontoparietal lobes. There now is evidence of increased attenuation in the overlying cerebral gyri. Petechial bleed should be ruled out. There is no evidence of a focal hematoma. No significant mass effect is seen. Normal basal ganglia and thalami. Normal brainstem. There are no findings of an acute ischemic infarction. Normal visualized paranasal sinuses. CT/Brain/Head without Contrast IMPRESSION: Stable examination except for questionable petechial bleed in the sulci overlying the left frontal parietal lobes. Electronically Signed: Orville Espinosa MD at 10:30 EDT Tel [phone], Service support ,
--- NOTE | 2017-09-24 10:05 | PCM.PN.NEU ---
Subjective: Staffed in team meeting. Family at bedside. Questions answered. With Physical therapy, she is a max assist of two to stand, and pivot. She is able to stand at the chair rail for about 3 to 5 mins before becoming tired. She is able to operations intern the parallel bars or with the Kasandra lift for about 5mins. 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 She continues to have no movement in the right arm and leg. With Occupational therapy she is a max assist for grooming, she is able to wash her face and to do some upper body grooming, she is a total assist for her lower body care. There is some trace movement in her triceps area. She has right sided neglect, which appears to be improving. She still requires cue to look to that side. She is able to sit/balance her trunk for about 25 to 35mins. With speech therapy, her ability to recognize real objects is good she can recognize them about 60% to 75% of the time, doing better than with pictures or words and with less than three objects greater than two she is not as accurate. She is tolerating a thin liquid/ Mechanical soft diet,with out difficulty, she may use a straw now. With nursing having issues with hearing and seem to not be able to see very clearly a check of her ears shows a large build up of ear wax will order Debrox twice a day for 4 days. For changes in vision will order a Brain CT scan. - Physical Exam General: Alert, Oriented x3, Cooperative HEENT: Atraumatic, PERRLA, EOMI, Normocephalic Neck: Supple, No JVD, Negative Carotid Bruits Lungs: Clear to auscultation, Normal air movement Cardiovascular: Regular rate, No murmurs Abdomen: Bowel Sounds Present, Soft, Non Tender Extremities: No edema, Capillary Refill Less than 3 Seconds Skin: No rashes, No breakdown Musculoskeletal: No Tenderness to Palpation of Joints or Extremities Neurological: Cranial nerves II-XII grossly intact Psych/Mental Status: Normal Affect, Appropriate Vital Signs Temp Pulse Resp BP Pulse Ox 98.2 F 61 18 159/83 H 94 09/24/17 07:26 09/24/17 07:26 09/24/17 07:26 09/24/17 07:26 09/24/17 07:26 Oxygen Flow Rate (L/min) 2 Oxygen Delivery Method Room Air Weight: 81.7 kg Body Mass Index (BMI) 30.4 Finger Stick Blood Glucose 125 Intake and Output for Last 24 Hours 09/22/17 09/23/17 09/24/17 23:59 23:59 23:59 Intake Total 60 / 60 730 / 730 240 / 240 Balance 60 / 60 730 / 730 240 / 240 Microbiology Past 72 Hours 09/19/17 17:00 Urine Culture - Final Urine Catheter - Catheter Presumptive E. coli Active Medications Albuterol Sulfate (Ventolin Hfa (Sp)) 1 puff INHALATION Q4H PRN PRN PRN Reason: SOB &/OR WHEEZING Albuterol/Ipratropium (Duoneb) 3 ml INHALATION Q4HWA.RT PRN PRN Reason: SOB &/OR WHEEZING Last Admin: 09/18/17 19:25 Dose: 3 ml Amiodarone HCl (Cordarone) 200 mg PO DAILY [facility] Last Admin: 09/24/17 07:32 Dose: 200 mg Apixaban (Eliquis) 5 mg PO BID [facility] Last Admin: 09/24/17 07:32 Dose: 5 mg Atorvastatin Calcium (Lipitor) 40 mg PO QHS [facility] Last Admin: 09/23/17 20:17 Dose: 40 mg Bisacodyl (Dulcolax) 10 mg RECTAL .PRN X 1 PRN PRN Reason: Constipation Budesonide (Pulmicort Aerosol) 0.5 mg INHALATION Q12H.RT [facility] Last Admin: 09/24/17 07:45 Dose: Not Given Calamine/Phenol (Calmoseptine Ointment) 1 applic TOPICAL BID [facility] PRN Reason: Protocol Last Admin: 09/24/17 07:34 Dose: 1 applicatio Carbamide Perox/Anhydrous Glycerin (Debrox) 5 - 10 drop OTIC 0600,2100 [facility] Stop: 09/27/17 21:01 Carvedilol (Coreg) 6.25 mg PO BIDAC [facility] Last Admin: 09/24/17 07:33 Dose: 6.25 mg Ciprofloxacin HCl (Cipro) 500 mg PO BID [facility] Last Admin: 09/24/17 07:32 Dose: 500 mg Escitalopram Oxalate (Lexapro) 10 mg PO DAILY [facility] Hydralazine HCl (Apresoline) 75 mg PO Q8 [facility] Last Admin: 09/24/17 06:08 Dose: 75 mg Lisinopril (Zestril) 40 mg PO DAILY [facility] Last Admin: 09/24/17 07:32 Dose: 40 mg Magnesium Hydroxide (Milk Of Magnesia) 30 ml PO .PRN X 1 PRN PRN Reason: Constipation Mirtazapine (Remeron) 30 mg PO QHS [facility] Last Admin: 09/23/17 20:17 Dose: 30 mg Nifedipine (Procardia Xl) 30 mg PO DAILY [facility] Last Admin: 09/24/17 07:33 Dose: 30 mg Senna/Docusate Sodium (Senokot-S, Evie-Colace) 2 tablet PO BID [facility] Last Admin: 09/24/17 07:31 Dose: Not Given Medical Necessity - Tobacco Use Smoking Status: Current every day smoker Tobacco Use: Cigarettes Assessment/Plan Debility s/p acute ischemic strokes of the L MCA and LICA, Complicated by prior stroke, AVM slips, New onset AFib, right sided deficits., severe aphasia and dysphagia. Goal of rehab is moravian of functional independence. Plan: - Physical therapy for gait and balance - Occupational Therapy for ADLs - Speech therapy - As needed analgesics - Bowel protocol - Stroke prevention on ASA, Statin and Lovenox, will transition to Eliquis after CT scan, will then D/C the ASA and the Lovenox - DVT prophylaxis: SCDs, ASA, Lovenox - New onset PAF - to start OAC (eliquis) if repeat CT scan is good. will continue Amio and taper according to direction from [facility]. - CAD s/p prior CABGx3 - asa, statin, Coreg, eunice, Procardia, hydralazine - Prediabetes - sliding scale insulin. A1C 5.8, - Asthma/Emphysema with chronic hypoxic respiratory failure - IS, wean as tolerated. Aerosols PRN. Recent COPD exacerbation, and Flu which was treated with 5 days of steroids and 5 days of Tamiflu - HTN - continue current therapy. - Dysphagia - mechanical soft, thin liquids. - Hx Systolic CHF and cardiomyopathy - continue current meds, avoid overhydration. Monitor for fluid overload. - Nicotine abuse - was smoking up to this stroke admission. Patch if desired. Cessation encouraged. - CT Scan brain, will start Eliquis if no changes are noted. - Scattered Rhonchi => Chest X-ray, and scheduled aerosols, chest x-ray negative for infiltrates - D/C the Symbicort, patient unable to utilize correctly, started DuoNeb and Pulmicort - Patient is a DNR-[facility] - Changes in vision => Brain CT scan obtained -> no changes to stroke area from previous scan - Difficulty hearing => has large amount of wax build up in both ears will use Debrox twice a day for four days.
[2017-09-24 10:38] VITALS: BMI 30.4
[2017-09-24] MEDS: Escitalopram Oxalate 10 MG Tablet PO (10:51)
[2017-09-24] MEDS: Carbamide Peroxide 15 ML Bottle OTIC ×2 (10:51→22:07)
--- NOTE | 2017-09-24 13:07 | MDS.RN ---
dtr fernando aware of ct results.
[2017-09-24 13:28] VITALS: BP 136/62; PULSE 57
--- NOTE | 2017-09-24 16:04 | CASEMGMT ---
Team meeting held. Patent present as well as patient family. Patient to discharge on 09/29/17 to a skilled facility. Patient and patient family first choices is [facility] and section choice is [facility]. Patient to continue with further care and treatment on the Inpatient Rehab Unit until time of discharge. Support given. Telephone call to Bibiana BENSON. Bibiana reporting to not be sure if there will be a bed open on Sunday or not but able to review clinical information. Clinical information faxed. Proposed discharge date: 09/29/17 PLAN: Discharge to a Skilled Facility for further skilled care. Will continue to follow. Khushboo FONG, [employer]
[2017-09-24 17:22] VITALS: BP 143/69; PULSE 60; RESP 18; TEMP 36.6; O2SAT 94
--- NOTE | 2017-09-24 19:01 | NURSING ---
dtr was concerned that patient has increased tiredness. vital signs obtained 97.8, pulse 60, bp 143/69, resp 18, spo2 94% ra. pupils equal and reactive, patient remains a/o x1 self only and opens eyes when spoken too. patient was able to help feed herself during supper. skin warm and dry, color pale. no acute distress noted or voiced complaints. No change in condition from this afternoon. new orders for bmp, cbc and d/c remeron. contacted hospitalist per dr phillips, hospitalist will see patient sometime tonight and updated. fernando amezcua updated. daughters in room. spoke with dr phillips x 3 times per family request and updated daughter that he will also see patient tomorrow.
[2017-09-24 19:33] LABS: Hematocrit 36.4 % (37-47); Hemoglobin 11.1 g/dl (12.0-15.0); Mean Corp Hgb Conc 30.5 g/gl (32-36); Mean Corpuscular Hgb 28.5 pg (27.0-32.0); Mean Corpuscular Volume 93.6 fL (81-99); Mean Platelet Vol. 10.3 fl (6.2-12.0); Platelet Count 232 K/mm3 (150-450); RBC Distribution Width CV 14.1 % (11.6-14.6); RBC Distribution Width SD 47.9 fl (35.1-43.9); Red Blood Count 3.89 M/mm3 (4.2-5.4); Scan Indicated on CBC? Y/N NO; White Blood Count 8.1 K/mm3 (4.4-11.0)
--- NOTE | 2017-09-24 19:51 | NURSING ---
dr morrell here to see patient.
[2017-09-24 19:52] LABS: Anion Gap 8 (5-15); BUN 21 mg/dL (7-18); BUN/Creat Ratio 20.8 RATIO (10-20); Calcium,Total 8.6 mg/dL (8.5-10.1); Chloride 106 mmol/L (98-107); Creatinine, Serum 1.01 mg/dL (0.55-1.02); EST Glomerular Filtration Rate 57 mL/min (>60); Est Glom Filt Rate - Afr Amer 69 mL/min (>60); Estimated Creatinine Clearance 41.04 ml/min; Glucose 152 mg/dL (74-106); Potassium 4.3 mmol/L (3.5-5.1); Sodium Level 141 mmol/L (136-145)
--- NOTE | 2017-09-24 20:06 | PCM.PN.HOSP ---
Subjective: The only concern that the patient is more somnolent today. Stated that the patient has just been more withdrawn today but seems to have gotten worse this evening. Patient requiring some physical stimulation to interact but patient not recognizing 1 of her daughters. Patient was started on Lexapro earlier today for perceived depression by the family. Vitals/I&O's: Vital Signs Temp Pulse Resp BP Pulse Ox 36.6 C 60 18 143/69 H 94 09/24/17 17:22 09/24/17 17:22 09/24/17 17:22 09/24/17 17:22 09/24/17 17:22 Oxygen Flow Rate (L/min) 2 Oxygen Delivery Method Room Air Weight: 81.7 kg Body Mass Index (BMI) 30.4 Finger Stick Blood Glucose 125 Intake and Output for Last 24 Hours 09/22/17 09/23/17 09/24/17 23:59 23:59 23:59 Intake Total 60 / 60 730 / 730 240 / 240 Balance 60 / 60 730 / 730 240 / 240 General: - - Awake. Nonverbal. HEENT: Atraumatic, Normocephalic, - - No icterus Laboratory Results 09/24/17 19:07: WBC 8.1, RBC 3.89 L, Hgb 11.1 L, Hct 36.4 L, MCV 93.6, MCH 28.5, MCHC 30.5 L, RDW 14.1, RDW Differential 47.9 H, Plt Count 232, MPV 10.3 09/24/17 19:07: Sodium 141, Potassium 4.3, Chloride 106, Carbon Dioxide 27.0, Anion Gap 8, BUN 21 H, Creatinine 1.01, Estim Creat Clear Calc 41.04, Est GFR (MDRD) Af Amer 69, Est GFR (MDRD) Non-Af 57 L, BUN/Creatinine Ratio 20.8 H, Glucose 152 H, Calcium 8.6 Current Medications Albuterol Sulfate (Ventolin Hfa (Sp)) 1 puff INHALATION Q4H PRN PRN PRN Reason: SOB &/OR WHEEZING Albuterol/Ipratropium (Duoneb) 3 ml INHALATION Q4HWA.RT PRN PRN Reason: SOB &/OR WHEEZING Last Admin: 09/18/17 19:25 Dose: 3 ml Amiodarone HCl (Cordarone) 200 mg PO DAILY [facility] Last Admin: 09/24/17 07:32 Dose: 200 mg Apixaban (Eliquis) 5 mg PO BID [facility] Last Admin: 09/24/17 07:32 Dose: 5 mg Atorvastatin Calcium (Lipitor) 40 mg PO QHS [facility] Last Admin: 09/23/17 20:17 Dose: 40 mg Bisacodyl (Dulcolax) 10 mg RECTAL .PRN X 1 PRN PRN Reason: Constipation Budesonide (Pulmicort Aerosol) 0.5 mg INHALATION Q12H.RT [facility] Last Admin: 09/24/17 07:45 Dose: Not Given Calamine/Phenol (Calmoseptine Ointment) 1 applic TOPICAL BID [facility] PRN Reason: Protocol Last Admin: 09/24/17 07:34 Dose: 1 applicatio Carbamide Perox/Anhydrous Glycerin (Debrox) 5 - 10 drop OTIC 0600,2100 [facility] Stop: 09/27/17 21:01 Last Admin: 09/24/17 10:51 Dose: 5 drop Carvedilol (Coreg) 6.25 mg PO BIDAC [facility] Last Admin: 09/24/17 17:22 Dose: 6.25 mg Ciprofloxacin HCl (Cipro) 500 mg PO BID [facility] Last Admin: 09/24/17 07:32 Dose: 500 mg Escitalopram Oxalate (Lexapro) 10 mg PO DAILY [facility] Last Admin: 09/24/17 10:51 Dose: 10 mg Hydralazine HCl (Apresoline) 75 mg PO Q8 [facility] Last Admin: 09/24/17 13:28 Dose: 75 mg Lisinopril (Zestril) 40 mg PO DAILY [facility] Last Admin: 09/24/17 07:32 Dose: 40 mg Magnesium Hydroxide (Milk Of Magnesia) 30 ml PO .PRN X 1 PRN PRN Reason: Constipation Nifedipine (Procardia Xl) 30 mg PO DAILY [facility] Last Admin: 09/24/17 07:33 Dose: 30 mg Senna/Docusate Sodium (Senokot-S, Evie-Colace) 2 tablet PO BID [facility] Last Admin: 09/24/17 07:31 Dose: Not Given Medical Necessity - Tobacco Use Smoking Status: Current every day smoker Tobacco Use: Cigarettes Assessment/Plan 1. Acute CVA continue Eliquis, High-intensity statin PT/OT/ST 2. Atrial fibrillation: Amiodarone on Eliquis follow up with cardiology as outpt 3. DVT proph: anticoagulated. 4. Encephalopathy, presumed metabolic Discussed with the patient's family as I feel it spread multitude of things, particular being the patient's very large MCA stroke on the left but there may also be a component of depression but also some medications. I agree with discontinuing the Remeron. Discussed with the family but that will continue with the Lexapro for now which was just started this morning. If the encephalopathy seems to persist or get worse and may need to consider discontinuing the Lexapro. BMP and CBC were unremarkable. The CAT scan had made some mention of some petechial hemorrhages but Dr. Rodríguez had apparently reviewed the CAT scan earlier and was not concerned. 5. UTI: Continue with Cipro. Greater than 25 minutes of which greater than 50% of time was counseling the patient's family about the confusion, stroke and medications. Code Visit Inpatient E&M: 75616 Subs Hosp L2
--- NOTE | 2017-09-24 20:10 | PN_ITS ---
Subjective: The only concern that the patient is more somnolent today. Stated that the patient has just been more withdrawn today but seems to have gotten worse this evening. Patient requiring some physical stimulation to interact but patient not recognizing 1 of her daughters. Patient was started on Lexapro earlier today for perceived depression by the family. Vitals/I&O's: Vital Signs Temp Pulse Resp BP Pulse Ox 36.6 C 60 18 143/69 H 94 09/24/17 17:22 09/24/17 17:22 09/24/17 17:22 09/24/17 17:22 09/24/17 17:22 Oxygen Flow Rate (L/min) 2 Oxygen Delivery Method Room Air Weight: 81.7 kg Body Mass Index (BMI) 30.4 Finger Stick Blood Glucose 125 Intake and Output for Last 24 Hours 09/22/17 09/23/17 09/24/17 23:59 23:59 23:59 Intake Total 60 / 60 730 / 730 240 / 240 Balance 60 / 60 730 / 730 240 / 240 General: - - Awake. Nonverbal. HEENT: Atraumatic, Normocephalic, - - No icterus Laboratory Results 09/24/17 19:07: WBC 8.1, RBC 3.89 L, Hgb 11.1 L, Hct 36.4 L, MCV 93.6, MCH 28.5 , MCHC 30.5 L, RDW 14.1, RDW Differential 47.9 H, Plt Count 232, MPV 10.3 09/24/17 19:07: Sodium 141, Potassium 4.3, Chloride 106, Carbon Dioxide 27.0, Anion Gap 8, BUN 21 H, Creatinine 1.01, Estim Creat Clear Calc 41.04, Est GFR ( MDRD) Af Amer 69, Est GFR (MDRD) Non-Af 57 L, BUN/Creatinine Ratio 20.8 H, Glucose 152 H, Calcium 8.6 Current Medications Albuterol Sulfate (Ventolin Hfa (Sp)) 1 puff INHALATION Q4H PRN PRN PRN Reason: SOB &/OR WHEEZING Albuterol/Ipratropium (Duoneb) 3 ml INHALATION Q4HWA.RT PRN PRN Reason: SOB &/OR WHEEZING Last Admin: 09/18/17 19:25 Dose: 3 ml Amiodarone HCl (Cordarone) 200 mg PO DAILY [facility] Last Admin: 09/24/17 07:32 Dose: 200 mg Apixaban (Eliquis) 5 mg PO BID [facility] Last Admin: 09/24/17 07:32 Dose: 5 mg Atorvastatin Calcium (Lipitor) 40 mg PO QHS [facility] Last Admin: 09/23/17 20:17 Dose: 40 mg Bisacodyl (Dulcolax) 10 mg RECTAL .PRN X 1 PRN PRN Reason: Constipation Budesonide (Pulmicort Aerosol) 0.5 mg INHALATION Q12H.RT [facility] Last Admin: 09/24/17 07:45 Dose: Not Given Calamine/Phenol (Calmoseptine Ointment) 1 applic TOPICAL BID [facility] PRN Reason: Protocol Last Admin: 09/24/17 07:34 Dose: 1 applicatio Carbamide Perox/Anhydrous Glycerin (Debrox) 5 - 10 drop OTIC 0600,2100 [facility] Stop: 09/27/17 21:01 Last Admin: 09/24/17 10:51 Dose: 5 drop Carvedilol (Coreg) 6.25 mg PO BIDAC [facility] Last Admin: 09/24/17 17:22 Dose: 6.25 mg Ciprofloxacin HCl (Cipro) 500 mg PO BID [facility] Last Admin: 09/24/17 07:32 Dose: 500 mg Escitalopram Oxalate (Lexapro) 10 mg PO DAILY [facility] Last Admin: 09/24/17 10:51 Dose: 10 mg Hydralazine HCl (Apresoline) 75 mg PO Q8 [facility] Last Admin: 09/24/17 13:28 Dose: 75 mg Lisinopril (Zestril) 40 mg PO DAILY [facility] Last Admin: 09/24/17 07:32 Dose: 40 mg Magnesium Hydroxide (Milk Of Magnesia) 30 ml PO .PRN X 1 PRN PRN Reason: Constipation Nifedipine (Procardia Xl) 30 mg PO DAILY [facility] Last Admin: 09/24/17 07:33 Dose: 30 mg Senna/Docusate Sodium (Senokot-S, Evie-Colace) 2 tablet PO BID [facility] Last Admin: 09/24/17 07:31 Dose: Not Given Medical Necessity - Tobacco Use Smoking Status: Current every day smoker Tobacco Use: Cigarettes Assessment/Plan 1. Acute CVA * continue Eliquis, High-intensity statin * PT/OT/ST 2. Atrial fibrillation: * Amiodarone * on Eliquis * follow up with cardiology as outpt 3. DVT proph: anticoagulated. 4. Encephalopathy, presumed metabolic * Discussed with the patient's family as I feel it spread multitude of things, particular being the patient's very large MCA stroke on the left but there may also be a component of depression but also some medications. I agree with discontinuing the Remeron. Discussed with the family but that will continue with the Lexapro for now which was just started this morning. If the encephalopathy seems to persist or get worse and may need to consider discontinuing the Lexapro. BMP and CBC were unremarkable. The CAT scan had made some mention of some petechial hemorrhages but Dr. Rodríguez had apparently reviewed the CAT scan earlier and was not concerned. 5. UTI: Continue with Cipro. Greater than 25 minutes of which greater than 50% of time was counseling the patient's family about the confusion, stroke and medications. Code Visit Inpatient E&M: 80675 Subs Hosp L2
--- NOTE | 2017-09-24 20:24 | NURSING ---
daughters present in room with dr morrell, no new orders. gary camejo updated.
[2017-09-24 21:58] VITALS: BP 131/66; PULSE 58; RESP 16; TEMP 36.7; O2SAT 93
[2017-09-24] MEDS: Atorvastatin Calcium 40 MG Tablet PO (22:06)
[2017-09-24] MEDS: Senna/Docusate Sodium 1 Tablet 2 TABLET PO (22:06)
[2017-09-24 22:07] VITALS: BP 131/66; PULSE 61
[2017-09-25] VITALS (7 sets, daily range): BP systolic 122–130; BP diastolic 51–67; PULSE 60–66; RESP 17–24; TEMP 36.4–37.2; O2SAT 93–94; BMI 30.4
--- NOTE | 2017-09-25 01:37 | NURSING ---
PT INCONTINENT OF LARGE AMT URINE. ATTENDS CHANGED AND PT TURNED ONTO L SIDE. PT REMAINS SLEEPING. RESP ARE EVEN AND EASY AND SKIN IS WARM, PINK AND DRY.
--- NOTE | 2017-09-25 03:23 | NURSING ---
SLEEPING. RESP ARE EVEN AND EASY AND PT SOFTLY SNORING.
[2017-09-25] MEDS: Carbamide Peroxide 15 ML Bottle OTIC ×2 (06:08→22:19)
[2017-09-25] MEDS: APIXABAN 5 MG TABLET PO ×2 (08:14→22:18)
[2017-09-25] MEDS: Amiodarone 200 MG Tablet PO (08:14)
[2017-09-25] MEDS: Carvedilol 6.25 MG Tablet PO ×2 (08:14→17:24)
[2017-09-25] MEDS: Lisinopril 40 MG Tablet PO (08:14)
[2017-09-25] MEDS: Escitalopram Oxalate 10 MG Tablet PO (08:14)
[2017-09-25] MEDS: Ciprofloxacin 500 MG Tablet PO ×2 (08:14→22:18)
[2017-09-25] MEDS: NIFEdipine 30 MG Tablet PO (08:14)
[2017-09-25] MEDS: Senna/Docusate Sodium 1 Tablet 2 TABLET PO ×2 (08:14→22:18)
[2017-09-25] MEDS: Menthol/Lanolin/Calamine/Znox 113 GM Tube 1 APPLIC TOPICAL ×2 (10:48→22:18)
--- NOTE | 2017-09-25 12:03 | PCM.PN.NEU ---
<Gabriela Medley - Last Filed: 09/25/17 12:03> Subjective: Patient is more alert this morning, during the evening the family reported that the patient was not responding to them and did not recognize one of her daughters.. The hospitalist saw the patient last night and talked with the family at that time. No new medications where started. Patient is tolerating therapy. No issues with GI, has a UTI an is on Cipro until 09/28. - Physical Exam General: Alert, Oriented x3, Cooperative HEENT: Atraumatic, PERRLA, EOMI, Normocephalic Neck: Supple, No JVD, Negative Carotid Bruits Lungs: Clear to auscultation, Normal air movement Cardiovascular: Regular rate, No murmurs Abdomen: Bowel Sounds Present, Soft, Non Tender Extremities: No edema, Capillary Refill Less than 3 Seconds Skin: No rashes, No breakdown Musculoskeletal: No Tenderness to Palpation of Joints or Extremities Neurological: Cranial nerves II-XII grossly intact Psych/Mental Status: Normal Affect, Appropriate Vital Signs Temp Pulse Resp BP Pulse Ox 99 F 66 17 129/54 H 94 09/25/17 08:13 09/25/17 08:13 09/25/17 08:13 09/25/17 08:13 09/25/17 08:13 Oxygen Flow Rate (L/min) 2 Oxygen Delivery Method Room Air Weight: 81.7 kg Body Mass Index (BMI) 30.4 Finger Stick Blood Glucose 125 Intake and Output for Last 24 Hours 09/23/17 09/24/17 09/25/17 23:59 23:59 23:59 Intake Total 730 / 730 240 / 240 180 / 180 Balance 730 / 730 240 / 240 180 / 180 Laboratory Tests Past 24 Hrs 09/24/17 09/24/17 19:07 19:07 WBC 8.1 RBC 3.89 L Hgb 11.1 L Hct 36.4 L MCV 93.6 MCH 28.5 MCHC 30.5 L RDW 14.1 RDW Differential 47.9 H Plt Count 232 MPV 10.3 Sodium 141 Potassium 4.3 Chloride 106 Carbon Dioxide 27.0 Anion Gap 8 BUN 21 H Creatinine 1.01 Estim Creat Clear Calc 41.04 Est GFR (MDRD) Af Amer 69 Est GFR (MDRD) Non-Af 57 L BUN/Creatinine Ratio 20.8 H Glucose 152 H Calcium 8.6 Active Medications Albuterol Sulfate (Ventolin Hfa (Sp)) 1 puff INHALATION Q4H PRN PRN PRN Reason: SOB &/OR WHEEZING Albuterol/Ipratropium (Duoneb) 3 ml INHALATION Q4HWA.RT PRN PRN Reason: SOB &/OR WHEEZING Last Admin: 09/18/17 19:25 Dose: 3 ml Amiodarone HCl (Cordarone) 200 mg PO DAILY [facility] Last Admin: 09/25/17 08:14 Dose: 200 mg Apixaban (Eliquis) 5 mg PO BID [facility] Last Admin: 09/25/17 08:14 Dose: 5 mg Atorvastatin Calcium (Lipitor) 40 mg PO QHS [facility] Last Admin: 09/24/17 22:06 Dose: 40 mg Bisacodyl (Dulcolax) 10 mg RECTAL .PRN X 1 PRN PRN Reason: Constipation Budesonide (Pulmicort Aerosol) 0.5 mg INHALATION Q12H.RT [facility] Last Admin: 09/25/17 06:46 Dose: Not Given Calamine/Phenol (Calmoseptine Ointment) 1 applic TOPICAL BID [facility] PRN Reason: Protocol Last Admin: 09/25/17 10:48 Dose: 1 applicatio Carbamide Perox/Anhydrous Glycerin (Debrox) 5 - 10 drop OTIC 0600,2100 [facility] Stop: 09/27/17 21:01 Last Admin: 09/25/17 06:08 Dose: 5 drop Carvedilol (Coreg) 6.25 mg PO BIDAC [facility] Last Admin: 09/25/17 08:14 Dose: 6.25 mg Ciprofloxacin HCl (Cipro) 500 mg PO BID [facility] Last Admin: 09/25/17 08:14 Dose: 500 mg Escitalopram Oxalate (Lexapro) 10 mg PO DAILY [facility] Last Admin: 09/25/17 08:14 Dose: 10 mg Hydralazine HCl (Apresoline) 75 mg PO Q8 [facility] Last Admin: 09/25/17 06:09 Dose: 75 mg Lisinopril (Zestril) 40 mg PO DAILY [facility] Last Admin: 09/25/17 08:14 Dose: 40 mg Magnesium Hydroxide (Milk Of Magnesia) 30 ml PO .PRN X 1 PRN PRN Reason: Constipation Nifedipine (Procardia Xl) 30 mg PO DAILY [facility] Last Admin: 09/25/17 08:14 Dose: 30 mg Senna/Docusate Sodium (Senokot-S, Evie-Colace) 2 tablet PO BID [facility] Last Admin: 09/25/17 08:14 Dose: 2 tablet Medical Necessity - Tobacco Use Smoking Status: Current every day smoker Tobacco Use: Cigarettes Assessment/Plan Debility s/p acute ischemic strokes of the L MCA and LICA, Complicated by prior stroke, AVM slips, New onset AFib, right sided deficits., severe aphasia and dysphagia. Goal of rehab is rastafarian of functional independence. Plan: - Physical therapy for gait and balance - Occupational Therapy for ADLs - Speech therapy - As needed analgesics - Bowel protocol - Stroke prevention on ASA, Statin and Lovenox, will transition to Eliquis after CT scan, will then D/C the ASA and the Lovenox - DVT prophylaxis: SCDs, ASA, Lovenox - New onset PAF - to start OAC (eliquis) if repeat CT scan is good. will continue Amio and taper according to direction from [facility]. - CAD s/p prior CABGx3 - asa, statin, Coreg, eunice, Procardia, hydralazine - Prediabetes - sliding scale insulin. A1C 5.8, - Asthma/Emphysema with chronic hypoxic respiratory failure - IS, wean as tolerated. Aerosols PRN. Recent COPD exacerbation, and Flu which was treated with 5 days of steroids and 5 days of Tamiflu - HTN - continue current therapy. - Dysphagia - mechanical soft, thin liquids. - Hx Systolic CHF and cardiomyopathy - continue current meds, avoid overhydration. Monitor for fluid overload. - Nicotine abuse - was smoking up to this stroke admission. Patch if desired. Cessation encouraged. - CT Scan brain, will start Eliquis if no changes are noted. - Scattered Rhonchi => Chest X-ray, and scheduled aerosols, chest x-ray negative for infiltrates - D/C the Symbicort, patient unable to utilize correctly, started DuoNeb and Pulmicort - Patient is a DNR-[facility] - Changes in vision => Brain CT scan obtained -> no changes to stroke area from previous scan - Difficulty hearing => has large amount of wax build up in both ears will use Debrox twice a day for four days. - UTI on Cipro until 09/28 - Depression started on Lexapro 10 mg. <Ernesto Rodríguez - Last Filed: 09/25/17 13:05> - Physical Exam Vital Signs Temp Pulse Resp BP Pulse Ox 37.2 C 66 17 129/54 H 94 09/25/17 08:13 09/25/17 08:13 09/25/17 08:13 09/25/17 08:13 09/25/17 08:13 Oxygen Flow Rate (L/min) 2 Oxygen Delivery Method Room Air Weight: 81.7 kg Body Mass Index (BMI) 30.4 Finger Stick Blood Glucose 125 Intake and Output for Last 24 Hours 09/23/17 09/24/17 09/25/17 23:59 23:59 23:59 Intake Total 730 / 730 240 / 240 180 / 180 Balance 730 / 730 240 / 240 180 / 180 Laboratory Tests Past 24 Hrs 09/24/17 09/24/17 19:07 19:07 WBC 8.1 RBC 3.89 L Hgb 11.1 L Hct 36.4 L MCV 93.6 MCH 28.5 MCHC 30.5 L RDW 14.1 RDW Differential 47.9 H Plt Count 232 MPV 10.3 Sodium 141 Potassium 4.3 Chloride 106 Carbon Dioxide 27.0 Anion Gap 8 BUN 21 H Creatinine 1.01 Estim Creat Clear Calc 41.04 Est GFR (MDRD) Af Amer 69 Est GFR (MDRD) Non-Af 57 L BUN/Creatinine Ratio 20.8 H Glucose 152 H Calcium 8.6 Assessment/Plan Patient interviewed and examined. Agree with nurse practitioner notes and plan as above. More alert today, following commands, she reports her hearing is improved, she believes that she is better today because she slept well last night. Complaints.
--- NOTE | 2017-09-25 12:09 | PN.NEURO_ITS ---
<Gabriela Medley - Last Filed: 09/25/17 12:03> Subjective: Patient is more alert this morning, during the evening the family reported that the patient was not responding to them and did not recognize one of her daughters.. The hospitalist saw the patient last night and talked with the family at that time. No new medications where started. Patient is tolerating therapy. No issues with GI, has a UTI an is on Cipro until 09/28. - Physical Exam General: Alert, Oriented x3, Cooperative HEENT: Atraumatic, PERRLA, EOMI, Normocephalic Neck: Supple, No JVD, Negative Carotid Bruits Lungs: Clear to auscultation, Normal air movement Cardiovascular: Regular rate, No murmurs Abdomen: Bowel Sounds Present, Soft, Non Tender Extremities: No edema, Capillary Refill Less than 3 Seconds Skin: No rashes, No breakdown Musculoskeletal: No Tenderness to Palpation of Joints or Extremities Neurological: Cranial nerves II-XII grossly intact Psych/Mental Status: Normal Affect, Appropriate Vital Signs Temp Pulse Resp BP Pulse Ox 99 F 66 17 129/54 H 94 09/25/17 08:13 09/25/17 08:13 09/25/17 08:13 09/25/17 08:13 09/25/17 08:13 Oxygen Flow Rate (L/min) 2 Oxygen Delivery Method Room Air Weight: 81.7 kg Body Mass Index (BMI) 30.4 Finger Stick Blood Glucose 125 Intake and Output for Last 24 Hours 09/23/17 09/24/17 09/25/17 23:59 23:59 23:59 Intake Total 730 / 730 240 / 240 180 / 180 Balance 730 / 730 240 / 240 180 / 180 Laboratory Tests Past 24 Hrs 09/24/17 09/24/17 19:07 19:07 WBC 8.1 RBC 3.89 L Hgb 11.1 L Hct 36.4 L MCV 93.6 MCH 28.5 MCHC 30.5 L RDW 14.1 RDW Differential 47.9 H Plt Count 232 MPV 10.3 Sodium 141 Potassium 4.3 Chloride 106 Carbon Dioxide 27.0 Anion Gap 8 BUN 21 H Creatinine 1.01 Estim Creat Clear Calc 41.04 Est GFR (MDRD) Af Amer 69 Est GFR (MDRD) Non-Af 57 L BUN/Creatinine Ratio 20.8 H Glucose 152 H Calcium 8.6 Active Medications Albuterol Sulfate (Ventolin Hfa (Sp)) 1 puff INHALATION Q4H PRN PRN PRN Reason: SOB &/OR WHEEZING Albuterol/Ipratropium (Duoneb) 3 ml INHALATION Q4HWA.RT PRN PRN Reason: SOB &/OR WHEEZING Last Admin: 09/18/17 19:25 Dose: 3 ml Amiodarone HCl (Cordarone) 200 mg PO DAILY [facility] Last Admin: 09/25/17 08:14 Dose: 200 mg Apixaban (Eliquis) 5 mg PO BID [facility] Last Admin: 09/25/17 08:14 Dose: 5 mg Atorvastatin Calcium (Lipitor) 40 mg PO QHS [facility] Last Admin: 09/24/17 22:06 Dose: 40 mg Bisacodyl (Dulcolax) 10 mg RECTAL .PRN X 1 PRN PRN Reason: Constipation Budesonide (Pulmicort Aerosol) 0.5 mg INHALATION Q12H.RT [facility] Last Admin: 09/25/17 06:46 Dose: Not Given Calamine/Phenol (Calmoseptine Ointment) 1 applic TOPICAL BID [facility] PRN Reason: Protocol Last Admin: 09/25/17 10:48 Dose: 1 applicatio Carbamide Perox/Anhydrous Glycerin (Debrox) 5 - 10 drop OTIC 0600,2100 [facility] Stop: 09/27/17 21:01 Last Admin: 09/25/17 06:08 Dose: 5 drop Carvedilol (Coreg) 6.25 mg PO BIDAC [facility] Last Admin: 09/25/17 08:14 Dose: 6.25 mg Ciprofloxacin HCl (Cipro) 500 mg PO BID [facility] Last Admin: 09/25/17 08:14 Dose: 500 mg Escitalopram Oxalate (Lexapro) 10 mg PO DAILY [facility] Last Admin: 09/25/17 08:14 Dose: 10 mg Hydralazine HCl (Apresoline) 75 mg PO Q8 [facility] Last Admin: 09/25/17 06:09 Dose: 75 mg Lisinopril (Zestril) 40 mg PO DAILY [facility] Last Admin: 09/25/17 08:14 Dose: 40 mg Magnesium Hydroxide (Milk Of Magnesia) 30 ml PO .PRN X 1 PRN PRN Reason: Constipation Nifedipine (Procardia Xl) 30 mg PO DAILY [facility] Last Admin: 09/25/17 08:14 Dose: 30 mg Senna/Docusate Sodium (Senokot-S, Evie-Colace) 2 tablet PO BID [facility] Last Admin: 09/25/17 08:14 Dose: 2 tablet Medical Necessity - Tobacco Use Smoking Status: Current every day smoker Tobacco Use: Cigarettes Assessment/Plan Debility s/p acute ischemic strokes of the L MCA and LICA, Complicated by prior stroke, AVM slips, New onset AFib, right sided deficits., severe aphasia and dysphagia. Goal of rehab is mormon of functional independence. Plan: - Physical therapy for gait and balance - Occupational Therapy for ADLs - Speech therapy - As needed analgesics - Bowel protocol - Stroke prevention on ASA, Statin and Lovenox, will transition to Eliquis after CT scan, will then D/C the ASA and the Lovenox - DVT prophylaxis: SCDs, ASA, Lovenox - New onset PAF - to start OAC (eliquis) if repeat CT scan is good. will continue Amio and taper according to direction from [facility]. - CAD s/p prior CABGx3 - asa, statin, Coreg, eunice, Procardia, hydralazine - Prediabetes - sliding scale insulin. A1C 5.8, - Asthma/Emphysema with chronic hypoxic respiratory failure - IS, wean as tolerated. Aerosols PRN. Recent COPD exacerbation, and Flu which was treated with 5 days of steroids and 5 days of Tamiflu - HTN - continue current therapy. - Dysphagia - mechanical soft, thin liquids. - Hx Systolic CHF and cardiomyopathy - continue current meds, avoid overhydration. Monitor for fluid overload. - Nicotine abuse - was smoking up to this stroke admission. Patch if desired. Cessation encouraged. - CT Scan brain, will start Eliquis if no changes are noted. - Scattered Rhonchi => Chest X-ray, and scheduled aerosols, chest x-ray negative for infiltrates - D/C the Symbicort, patient unable to utilize correctly, started DuoNeb and Pulmicort - Patient is a DNR-[facility] - Changes in vision => Brain CT scan obtained -> no changes to stroke area from previous scan - Difficulty hearing => has large amount of wax build up in both ears will use Debrox twice a day for four days. - UTI on Cipro until 09/28 - Depression started on Lexapro 10 mg. <Ernesto Rodríguez - Last Filed: 09/25/17 13:05> - Physical Exam Vital Signs Temp Pulse Resp BP Pulse Ox 37.2 C 66 17 129/54 H 94 09/25/17 08:13 09/25/17 08:13 09/25/17 08:13 09/25/17 08:13 09/25/17 08:13 Oxygen Flow Rate (L/min) 2 Oxygen Delivery Method Room Air Weight: 81.7 kg Body Mass Index (BMI) 30.4 Finger Stick Blood Glucose 125 Intake and Output for Last 24 Hours 09/23/17 09/24/17 09/25/17 23:59 23:59 23:59 Intake Total 730 / 730 240 / 240 180 / 180 Balance 730 / 730 240 / 240 180 / 180 Laboratory Tests Past 24 Hrs 09/24/17 09/24/17 19:07 19:07 WBC 8.1 RBC 3.89 L Hgb 11.1 L Hct 36.4 L MCV 93.6 MCH 28.5 MCHC 30.5 L RDW 14.1 RDW Differential 47.9 H Plt Count 232 MPV 10.3 Sodium 141 Potassium 4.3 Chloride 106 Carbon Dioxide 27.0 Anion Gap 8 BUN 21 H Creatinine 1.01 Estim Creat Clear Calc 41.04 Est GFR (MDRD) Af Amer 69 Est GFR (MDRD) Non-Af 57 L BUN/Creatinine Ratio 20.8 H Glucose 152 H Calcium 8.6 Assessment/Plan Patient interviewed and examined. Agree with nurse practitioner notes and plan as above. More alert today, following commands, she reports her hearing is improved, she believes that she is better today because she slept well last night. Complaints.
--- NOTE | 2017-09-25 12:41 | CASEMGMT ---
[facility] social welfare making referral. Judi reporting to be able to review the clinical information. Clinicals faxed. Pending approval. Pending approval by [facility] as well. Proposed discharge date: 09/29/17 PLAN: Discharge to SNF for skilled therapy. Khushboo FONG, FREELANCE OPERATOR
[2017-09-25] MEDS: Atorvastatin Calcium 40 MG Tablet PO (22:18)
[2017-09-26] VITALS (7 sets, daily range): BP systolic 124–146; BP diastolic 57–69; PULSE 53–60; RESP 16–18; TEMP 36.6–36.7; O2SAT 93–94; BMI 30.4
[2017-09-26] MEDS: Carbamide Peroxide 15 ML Bottle OTIC ×2 (05:06→20:25)
[2017-09-26] MEDS: Lisinopril 40 MG Tablet PO (08:02)
[2017-09-26] MEDS: Carvedilol 6.25 MG Tablet PO ×2 (08:02→17:26)
[2017-09-26] MEDS: Ciprofloxacin 500 MG Tablet PO ×2 (08:03→20:24)
[2017-09-26] MEDS: APIXABAN 5 MG TABLET PO ×2 (08:03→20:24)
[2017-09-26] MEDS: Amiodarone 200 MG Tablet PO (08:03)
[2017-09-26] MEDS: Senna/Docusate Sodium 1 Tablet 2 TABLET PO ×2 (08:03→20:24)
[2017-09-26] MEDS: NIFEdipine 30 MG Tablet PO (08:03)
[2017-09-26] MEDS: Escitalopram Oxalate 10 MG Tablet PO (08:03)
[2017-09-26] MEDS: Menthol/Lanolin/Calamine/Znox 113 GM Tube 1 APPLIC TOPICAL ×2 (09:39→20:24)
--- NOTE | 2017-09-26 12:56 | PCM.PN.NEU ---
Subjective: Patient seen working with Physical therapy. No acute events overnight, patient appears to be more rested today. Tolerating therapy. No issues with GI/. - Physical Exam General: Alert, Oriented x3, Cooperative HEENT: Atraumatic, PERRLA, EOMI, Normocephalic Neck: Supple, No JVD, Negative Carotid Bruits Lungs: Clear to auscultation, Normal air movement Cardiovascular: Regular rate, No murmurs Abdomen: Bowel Sounds Present, Soft, Non Tender Extremities: No edema, Capillary Refill Less than 3 Seconds Skin: No rashes, No breakdown Musculoskeletal: No Tenderness to Palpation of Joints or Extremities Neurological: Cranial nerves II-XII grossly intact Psych/Mental Status: Normal Affect, Appropriate Vital Signs Temp Pulse Resp BP Pulse Ox 98 F 56 L 16 127/68 H 94 09/26/17 07:14 09/26/17 07:14 09/26/17 07:14 09/26/17 07:14 09/26/17 07:14 Oxygen Flow Rate (L/min) 2 Oxygen Delivery Method Room Air Weight: 81.1 kg Body Mass Index (BMI) 30.4 Finger Stick Blood Glucose 125 Intake and Output for Last 24 Hours 09/24/17 09/25/17 09/26/17 23:59 23:59 23:59 Intake Total 240 / 240 540 / 540 120 / 120 Balance 240 / 240 540 / 540 120 / 120 Active Medications Albuterol Sulfate (Ventolin Hfa (Sp)) 1 puff INHALATION Q4H PRN PRN PRN Reason: SOB &/OR WHEEZING Albuterol/Ipratropium (Duoneb) 3 ml INHALATION Q4HWA.RT PRN PRN Reason: SOB &/OR WHEEZING Last Admin: 09/18/17 19:25 Dose: 3 ml Amiodarone HCl (Cordarone) 200 mg PO DAILY [facility] Last Admin: 09/26/17 08:03 Dose: 200 mg Apixaban (Eliquis) 5 mg PO BID [facility] Last Admin: 09/26/17 08:03 Dose: 5 mg Atorvastatin Calcium (Lipitor) 40 mg PO QHS [facility] Last Admin: 09/25/17 22:18 Dose: 40 mg Bisacodyl (Dulcolax) 10 mg RECTAL .PRN X 1 PRN PRN Reason: Constipation Budesonide (Pulmicort Aerosol) 0.5 mg INHALATION Q12H.RT [facility] Last Admin: 09/26/17 06:45 Dose: Not Given Calamine/Phenol (Calmoseptine Ointment) 1 applic TOPICAL BID [facility] PRN Reason: Protocol Last Admin: 09/26/17 09:39 Dose: 1 applicatio Carbamide Perox/Anhydrous Glycerin (Debrox) 5 - 10 drop OTIC 0600,2100 [facility] Stop: 09/27/17 21:01 Last Admin: 09/26/17 05:06 Dose: 5 drop Carvedilol (Coreg) 6.25 mg PO BIDAC [facility] Last Admin: 09/26/17 08:02 Dose: 6.25 mg Ciprofloxacin HCl (Cipro) 500 mg PO BID [facility] Last Admin: 09/26/17 08:03 Dose: 500 mg Escitalopram Oxalate (Lexapro) 10 mg PO DAILY [facility] Last Admin: 09/26/17 08:03 Dose: 10 mg Hydralazine HCl (Apresoline) 75 mg PO Q8 [facility] Last Admin: 09/26/17 05:06 Dose: 75 mg Lisinopril (Zestril) 40 mg PO DAILY [facility] Last Admin: 09/26/17 08:02 Dose: 40 mg Magnesium Hydroxide (Milk Of Magnesia) 30 ml PO .PRN X 1 PRN PRN Reason: Constipation Nifedipine (Procardia Xl) 30 mg PO DAILY [facility] Last Admin: 09/26/17 08:03 Dose: 30 mg Senna/Docusate Sodium (Senokot-S, Evie-Colace) 2 tablet PO BID [facility] Last Admin: 09/26/17 08:03 Dose: 2 tablet Medical Necessity - Tobacco Use Smoking Status: Current every day smoker Tobacco Use: Cigarettes Assessment/Plan Debility s/p acute ischemic strokes of the L MCA and LICA, Complicated by prior stroke, AVM slips, New onset AFib, right sided deficits., severe aphasia and dysphagia. Goal of rehab is presybeterian of functional independence. Plan: - Physical therapy for gait and balance - Occupational Therapy for ADLs - Speech therapy - As needed analgesics - Bowel protocol - Stroke prevention on ASA, Statin and Lovenox, will transition to Eliquis after CT scan, will then D/C the ASA and the Lovenox - DVT prophylaxis: SCDs, ASA, Lovenox - New onset PAF - to start OAC (eliquis) if repeat CT scan is good. will continue Amio and taper according to direction from [facility]. - CAD s/p prior CABGx3 - asa, statin, Coreg, eunice, Procardia, hydralazine - Prediabetes - sliding scale insulin. A1C 5.8, - Asthma/Emphysema with chronic hypoxic respiratory failure - IS, wean as tolerated. Aerosols PRN. Recent COPD exacerbation, and Flu which was treated with 5 days of steroids and 5 days of Tamiflu - HTN - continue current therapy. - Dysphagia - mechanical soft, thin liquids. - Hx Systolic CHF and cardiomyopathy - continue current meds, avoid overhydration. Monitor for fluid overload. - Nicotine abuse - was smoking up to this stroke admission. Patch if desired. Cessation encouraged. - CT Scan brain, will start Eliquis if no changes are noted. - Scattered Rhonchi => Chest X-ray, and scheduled aerosols, chest x-ray negative for infiltrates - D/C the Symbicort, patient unable to utilize correctly, started DuoNeb and Pulmicort - Patient is a DNR-[facility] - Changes in vision => Brain CT scan obtained -> no changes to stroke area from previous scan - Difficulty hearing => has large amount of wax build up in both ears will use Debrox twice a day for four days. - UTI on Cipro until 09/28 - Depression started on Lexapro 10 mg.
--- NOTE | 2017-09-26 12:59 | PN.NEURO_ITS ---
Subjective: Patient seen working with Physical therapy. No acute events overnight, patient appears to be more rested today. Tolerating therapy. No issues with GI/. - Physical Exam General: Alert, Oriented x3, Cooperative HEENT: Atraumatic, PERRLA, EOMI, Normocephalic Neck: Supple, No JVD, Negative Carotid Bruits Lungs: Clear to auscultation, Normal air movement Cardiovascular: Regular rate, No murmurs Abdomen: Bowel Sounds Present, Soft, Non Tender Extremities: No edema, Capillary Refill Less than 3 Seconds Skin: No rashes, No breakdown Musculoskeletal: No Tenderness to Palpation of Joints or Extremities Neurological: Cranial nerves II-XII grossly intact Psych/Mental Status: Normal Affect, Appropriate Vital Signs Temp Pulse Resp BP Pulse Ox 98 F 56 L 16 127/68 H 94 09/26/17 07:14 09/26/17 07:14 09/26/17 07:14 09/26/17 07:14 09/26/17 07:14 Oxygen Flow Rate (L/min) 2 Oxygen Delivery Method Room Air Weight: 81.1 kg Body Mass Index (BMI) 30.4 Finger Stick Blood Glucose 125 Intake and Output for Last 24 Hours 09/24/17 09/25/17 09/26/17 23:59 23:59 23:59 Intake Total 240 / 240 540 / 540 120 / 120 Balance 240 / 240 540 / 540 120 / 120 Active Medications Albuterol Sulfate (Ventolin Hfa (Sp)) 1 puff INHALATION Q4H PRN PRN PRN Reason: SOB &/OR WHEEZING Albuterol/Ipratropium (Duoneb) 3 ml INHALATION Q4HWA.RT PRN PRN Reason: SOB &/OR WHEEZING Last Admin: 09/18/17 19:25 Dose: 3 ml Amiodarone HCl (Cordarone) 200 mg PO DAILY [facility] Last Admin: 09/26/17 08:03 Dose: 200 mg Apixaban (Eliquis) 5 mg PO BID [facility] Last Admin: 09/26/17 08:03 Dose: 5 mg Atorvastatin Calcium (Lipitor) 40 mg PO QHS [facility] Last Admin: 09/25/17 22:18 Dose: 40 mg Bisacodyl (Dulcolax) 10 mg RECTAL .PRN X 1 PRN PRN Reason: Constipation Budesonide (Pulmicort Aerosol) 0.5 mg INHALATION Q12H.RT [facility] Last Admin: 09/26/17 06:45 Dose: Not Given Calamine/Phenol (Calmoseptine Ointment) 1 applic TOPICAL BID [facility] PRN Reason: Protocol Last Admin: 09/26/17 09:39 Dose: 1 applicatio Carbamide Perox/Anhydrous Glycerin (Debrox) 5 - 10 drop OTIC 0600,2100 [facility] Stop: 09/27/17 21:01 Last Admin: 09/26/17 05:06 Dose: 5 drop Carvedilol (Coreg) 6.25 mg PO BIDAC [facility] Last Admin: 09/26/17 08:02 Dose: 6.25 mg Ciprofloxacin HCl (Cipro) 500 mg PO BID [facility] Last Admin: 09/26/17 08:03 Dose: 500 mg Escitalopram Oxalate (Lexapro) 10 mg PO DAILY [facility] Last Admin: 09/26/17 08:03 Dose: 10 mg Hydralazine HCl (Apresoline) 75 mg PO Q8 [facility] Last Admin: 09/26/17 05:06 Dose: 75 mg Lisinopril (Zestril) 40 mg PO DAILY [facility] Last Admin: 09/26/17 08:02 Dose: 40 mg Magnesium Hydroxide (Milk Of Magnesia) 30 ml PO .PRN X 1 PRN PRN Reason: Constipation Nifedipine (Procardia Xl) 30 mg PO DAILY [facility] Last Admin: 09/26/17 08:03 Dose: 30 mg Senna/Docusate Sodium (Senokot-S, Evie-Colace) 2 tablet PO BID [facility] Last Admin: 09/26/17 08:03 Dose: 2 tablet Medical Necessity - Tobacco Use Smoking Status: Current every day smoker Tobacco Use: Cigarettes Assessment/Plan Debility s/p acute ischemic strokes of the L MCA and LICA, Complicated by prior stroke, AVM slips, New onset AFib, right sided deficits., severe aphasia and dysphagia. Goal of rehab is congregational of functional independence. Plan: - Physical therapy for gait and balance - Occupational Therapy for ADLs - Speech therapy - As needed analgesics - Bowel protocol - Stroke prevention on ASA, Statin and Lovenox, will transition to Eliquis after CT scan, will then D/C the ASA and the Lovenox - DVT prophylaxis: SCDs, ASA, Lovenox - New onset PAF - to start OAC (eliquis) if repeat CT scan is good. will continue Amio and taper according to direction from [facility]. - CAD s/p prior CABGx3 - asa, statin, Coreg, eunice, Procardia, hydralazine - Prediabetes - sliding scale insulin. A1C 5.8, - Asthma/Emphysema with chronic hypoxic respiratory failure - IS, wean as tolerated. Aerosols PRN. Recent COPD exacerbation, and Flu which was treated with 5 days of steroids and 5 days of Tamiflu - HTN - continue current therapy. - Dysphagia - mechanical soft, thin liquids. - Hx Systolic CHF and cardiomyopathy - continue current meds, avoid overhydration. Monitor for fluid overload. - Nicotine abuse - was smoking up to this stroke admission. Patch if desired. Cessation encouraged. - CT Scan brain, will start Eliquis if no changes are noted. - Scattered Rhonchi => Chest X-ray, and scheduled aerosols, chest x-ray negative for infiltrates - D/C the Symbicort, patient unable to utilize correctly, started DuoNeb and Pulmicort - Patient is a DNR-[facility] - Changes in vision => Brain CT scan obtained -> no changes to stroke area from previous scan - Difficulty hearing => has large amount of wax build up in both ears will use Debrox twice a day for four days. - UTI on Cipro until 09/28 - Depression started on Lexapro 10 mg.
--- NOTE | 2017-09-26 18:17 | NURSING ---
Reviewed AMBULANCE OFFICER charting and agree.
[2017-09-26] MEDS: Atorvastatin Calcium 40 MG Tablet PO (20:23)
--- NOTE | 2017-09-27 01:21 | NURSING ---
Reviewed and agree with CENTER REP documentation and FIMS charting.
[2017-09-27 05:24] VITALS: BP 140/64; PULSE 61
[2017-09-27] MEDS: Carbamide Peroxide 15 ML Bottle OTIC ×2 (05:25→20:04)
--- NOTE | 2017-09-27 05:49 | NURSING ---
pt dry through the night when checked and then totally incont this a.m. Small BM and large urine saturating sheets. Pt cleansed & urvashi applied. Linen, gown, & Attends changed. Pt repositioned on left side with pillows tucked under legs. Skin intact, warm and pink. Pt kept eyes closed through most of procedure and stated she was still tired.
[2017-09-27] MEDS: Ciprofloxacin 500 MG Tablet PO ×2 (08:07→20:04)
[2017-09-27] MEDS: APIXABAN 5 MG TABLET PO ×2 (08:07→20:04)
[2017-09-27] MEDS: Amiodarone 200 MG Tablet PO (08:07)
[2017-09-27] MEDS: Lisinopril 40 MG Tablet PO (08:07)
[2017-09-27] MEDS: Escitalopram Oxalate 10 MG Tablet PO (08:07)
[2017-09-27] MEDS: Senna/Docusate Sodium 1 Tablet 2 TABLET PO (08:07)
[2017-09-27] MEDS: Carvedilol 6.25 MG Tablet PO ×2 (08:07→17:54)
[2017-09-27] MEDS: NIFEdipine 30 MG Tablet PO (08:07)
[2017-09-27 08:10] VITALS: BP 148/65; PULSE 61; RESP 18; TEMP 36.7; O2SAT 94
[2017-09-27] MEDS: Menthol/Lanolin/Calamine/Znox 113 GM Tube 1 APPLIC TOPICAL ×2 (10:17→19:45)
--- NOTE | 2017-09-27 10:51 | PN.NEURO_ITS ---
Subjective: Patient seen and examined. No new complaints. Tolerating therapy. Denies any shortness of breath or chest pains. No issues with GI/. - Physical Exam General: Alert, Oriented x3, Cooperative HEENT: Atraumatic, PERRLA, EOMI, Normocephalic Neck: Supple, No JVD, Negative Carotid Bruits Lungs: Clear to auscultation, Normal air movement Cardiovascular: Regular rate, No murmurs Abdomen: Bowel Sounds Present, Soft, Non Tender Extremities: No edema, Capillary Refill Less than 3 Seconds Skin: No rashes, No breakdown Musculoskeletal: No Tenderness to Palpation of Joints or Extremities Neurological: Cranial nerves II-XII grossly intact Psych/Mental Status: Normal Affect, Appropriate Vital Signs Temp Pulse Resp BP Pulse Ox 98.0 F 61 18 148/65 H 94 09/27/17 08:10 09/27/17 08:10 09/27/17 08:10 09/27/17 08:10 09/27/17 08:10 Oxygen Flow Rate (L/min) 2 Oxygen Delivery Method Room Air Weight: 81.1 kg Body Mass Index (BMI) 30.4 Finger Stick Blood Glucose 125 Intake and Output for Last 24 Hours 09/25/17 09/26/17 09/27/17 23:59 23:59 23:59 Intake Total 540 / 540 360 / 360 390 / 390 Balance 540 / 540 360 / 360 390 / 390 Active Medications Albuterol Sulfate (Ventolin Hfa (Sp)) 1 puff INHALATION Q4H PRN PRN PRN Reason: SOB &/OR WHEEZING Albuterol/Ipratropium (Duoneb) 3 ml INHALATION Q4HWA.RT PRN PRN Reason: SOB &/OR WHEEZING Last Admin: 09/18/17 19:25 Dose: 3 ml Amiodarone HCl (Cordarone) 200 mg PO DAILY [facility] Last Admin: 09/27/17 08:07 Dose: 200 mg Apixaban (Eliquis) 5 mg PO BID [facility] Last Admin: 09/27/17 08:07 Dose: 5 mg Atorvastatin Calcium (Lipitor) 40 mg PO QHS [facility] Last Admin: 09/26/17 20:23 Dose: 40 mg Bisacodyl (Dulcolax) 10 mg RECTAL .PRN X 1 PRN PRN Reason: Constipation Budesonide (Pulmicort Aerosol) 0.5 mg INHALATION Q12H.RT [facility] Last Admin: 09/27/17 06:45 Dose: Not Given Calamine/Phenol (Calmoseptine Ointment) 1 applic TOPICAL BID [facility] PRN Reason: Protocol Last Admin: 09/27/17 10:17 Dose: 1 applicatio Carbamide Perox/Anhydrous Glycerin (Debrox) 5 - 10 drop OTIC 0600,2100 [facility] Stop: 09/27/17 21:01 Last Admin: 09/27/17 05:25 Dose: 5 drop Carvedilol (Coreg) 6.25 mg PO BIDAC [facility] Last Admin: 09/27/17 08:07 Dose: 6.25 mg Ciprofloxacin HCl (Cipro) 500 mg PO BID [facility] Last Admin: 09/27/17 08:07 Dose: 500 mg Escitalopram Oxalate (Lexapro) 10 mg PO DAILY [facility] Last Admin: 09/27/17 08:07 Dose: 10 mg Hydralazine HCl (Apresoline) 75 mg PO Q8 [facility] Last Admin: 09/27/17 05:24 Dose: 75 mg Lisinopril (Zestril) 40 mg PO DAILY [facility] Last Admin: 09/27/17 08:07 Dose: 40 mg Magnesium Hydroxide (Milk Of Magnesia) 30 ml PO .PRN X 1 PRN PRN Reason: Constipation Nifedipine (Procardia Xl) 30 mg PO DAILY [facility] Last Admin: 09/27/17 08:07 Dose: 30 mg Senna/Docusate Sodium (Senokot-S, Evie-Colace) 2 tablet PO BID [facility] Last Admin: 09/27/17 08:07 Dose: 2 tablet Medical Necessity - Tobacco Use Smoking Status: Current every day smoker Tobacco Use: Cigarettes Assessment/Plan Debility s/p acute ischemic strokes of the L MCA and LICA, Complicated by prior stroke, AVM slips, New onset AFib, right sided deficits., severe aphasia and dysphagia. Goal of rehab is sikhism of functional independence. Plan: - Physical therapy for gait and balance - Occupational Therapy for ADLs - Speech therapy - As needed analgesics - Bowel protocol - Stroke prevention on ASA, Statin and Lovenox, will transition to Eliquis after CT scan, will then D/C the ASA and the Lovenox - DVT prophylaxis: SCDs, ASA, Lovenox - New onset PAF - to start OAC (eliquis) if repeat CT scan is good. will continue Amio and taper according to direction from [facility]. - CAD s/p prior CABGx3 - asa, statin, Coreg, eunice, Procardia, hydralazine - Prediabetes - sliding scale insulin. A1C 5.8, - Asthma/Emphysema with chronic hypoxic respiratory failure - IS, wean as tolerated. Aerosols PRN. Recent COPD exacerbation, and Flu which was treated with 5 days of steroids and 5 days of Tamiflu - HTN - continue current therapy. - Dysphagia - mechanical soft, thin liquids. - Hx Systolic CHF and cardiomyopathy - continue current meds, avoid overhydration. Monitor for fluid overload. - Nicotine abuse - was smoking up to this stroke admission. Patch if desired. Cessation encouraged. - CT Scan brain, will start Eliquis if no changes are noted. - Scattered Rhonchi => Chest X-ray, and scheduled aerosols, chest x-ray negative for infiltrates - D/C the Symbicort, patient unable to utilize correctly, started DuoNeb and Pulmicort - Patient is a DNR-[facility] - Changes in vision => Brain CT scan obtained -> no changes to stroke area from previous scan - Difficulty hearing => has large amount of wax build up in both ears will use Debrox twice a day for four days. - UTI on Cipro until 09/28 - Depression started on Lexapro 10 mg.
--- NOTE | 2017-09-27 12:50 | CASEMGMT ---
[facility] patient [facility]/17. Spoke with patient and patient family, Patient choosing to discharge to [facility] at time of discharge. Patient family requesting for transportation to be set up via cot. Support given. Notified [facility] [place] [facility] and canceled referral. Transfer form initiated. Telephone call to [place]. Transportation set up for 09/29/17 @ 10:00am. Transportation form completed and placed with patient discharge information. Proposed discharge date: 09/29/17 PLAN: Discharge to [facility] skilled. Khushboo FONG, RATE AND COST ANALYST
[2017-09-27 14:48] VITALS: BP 126/45; PULSE 60
[2017-09-27 15:15] VITALS: BMI 30.4
--- NOTE | 2017-09-27 16:01 | CASEMGMT ---
Social Work PASRR completed in [facility] and faxed to [facility]. Khushboo FONG, CREDIT SUPPORT SPECIALIST
[2017-09-27 17:53] VITALS: BP 134/62; PULSE 64
[2017-09-27 19:45] VITALS: BP 117/55; PULSE 54; RESP 20; TEMP 36.9; O2SAT 93
[2017-09-27] MEDS: Budesonide Respules 0.5 MG/2 ML AMPUL.NEB. INHALATION (20:00)
[2017-09-27 20:04] VITALS: BP 117/55; PULSE 54
[2017-09-27] MEDS: Atorvastatin Calcium 40 MG Tablet PO (20:04)
--- NOTE | 2017-09-27 20:10 | NURSING ---
pt is tired and reports that she does not feel but is not specific when staff asks her questions. pt will close her eyes and talks very softly. vs are unremarkable this hs, but pt is noted to be diminished in post gomez with fine crackles in the bases. pt refused breathing tx for cps but staff encouraged d/t crackles in the bases; pt then agreed .
--- NOTE | 2017-09-28 03:39 | NURSING ---
Reviewed and agree with ELECTRONIC FIELD SERVICE ENGINEER documentation and FIMs charting
[2017-09-28 06:00] VITALS: BP 153/90; PULSE 62
[2017-09-28 07:49] VITALS: BP 148/88; PULSE 62; RESP 18; TEMP 36.9; O2SAT 94
[2017-09-28] MEDS: NIFEdipine 30 MG Tablet PO (07:51)
[2017-09-28] MEDS: Escitalopram Oxalate 10 MG Tablet PO (07:51)
[2017-09-28] MEDS: Lisinopril 40 MG Tablet PO (07:51)
[2017-09-28] MEDS: Ciprofloxacin 500 MG Tablet PO ×2 (07:51→20:46)
[2017-09-28] MEDS: APIXABAN 5 MG TABLET PO ×2 (07:51→20:47)
[2017-09-28] MEDS: Amiodarone 200 MG Tablet PO (07:51)
[2017-09-28] MEDS: Carvedilol 6.25 MG Tablet PO ×2 (07:51→16:36)
[2017-09-28] MEDS: Senna/Docusate Sodium 1 Tablet 2 TABLET PO ×2 (07:52→20:53)
[2017-09-28] MEDS: Menthol/Lanolin/Calamine/Znox 113 GM Tube 1 APPLIC TOPICAL ×2 (07:55→20:47)
[2017-09-28 09:51] VITALS: BMI 30.4
--- NOTE | 2017-09-28 09:57 | PCM.TXEXTCAR ---
- Diet 09/05/17 14:12 Diet: Cardiac/Low Cholesterol Food consistency:: Mechanical Soft/Ground Liquid Consistency:: Regular/Thin Is pt able to select menu?: No Diet Comments: small bites/sips; no straws, feed slow rate - Routine Orders/Code Status Code Status: DNRCC-A - Wound(s) miri arms Wound Type: Abrasion coccyx Wound Type: Pressure Injury Dressing Change: Mepilex - Therapies Weight Bearing: Weight bearing as tolerated Physical Therapy: Eval and Treat Occupational Therapy: Eval and Treat Speech Therapy: Eval and Treat - Allergies/Procedures Done in Hospital Allergies/Adverse Reactions: Allergies furosemide [From Lasix] Allergy (Verified 05/10/16 08:50) Hives meperidine [From Demerol] Allergy (Verified 09/06/17 18:44) Hives Penicillins Allergy (Verified 05/10/16 08:54) Hives - Type of Care/Length of Stay Estimated LOS: More Than 30 Days Type of Care Needed: Skilled Rehab Potential: Fair Prognosis: Fair - Additional Orders/Day of Discharge Day of Discharge: 09/29/17 - Dietary and Speech Recommendations Dietitian Recommendations/Changes: Reweigh please--PO fluctuates at meals & sometimes greatly so, current wt would be helpful in further assessing PO adequacy. - Follow Up Care Primary Care Physician: Conor Aparicio MD [Primary Care Provider] -
[2017-09-28 13:52] VITALS: BP 132/75; PULSE 53
--- NOTE | 2017-09-28 15:10 | PCM.DC ---
- Discharge Diagnoses Current Active Problems: Current Active and Chronic Problems Nicotine abuse (Chronic) COPD (chronic obstructive pulmonary disease) (Chronic) Asthma (Chronic) CHF (congestive heart failure) (Chronic) Debility (Chronic) Ischemic stroke (Chronic) Atrial fibrillation (Chronic) Dysphagia (Chronic) Reason(s) for Visit for Discharge Instructions: CVA You will use the following diet at home:: Cardiac, Other - Mechanical soft Your food should be the consistency of: Mechanical soft (ground) Your liquids should be the consistency of: Regular/Thin - may use a straw Discharge Activity: May Not Drive, May Shower, May Take a Tub Bath, Use Walker Weight Bearing Status: Weight bearing as tolerated Call your doctor if you observe: Fever of 101 or Higher, Coldness, Increased Pain, Numbness or Tingling, Change in Color, Inability to urinate, Inability to have a bowel movement, Using more than one pad per hour, Shortness of breath, Dizziness, Fainting spells, Swelling in the ankles, Chest pain, Prolonged hiccoughing, Increased palpitations (irregular heartbeat), Calf discomfort, Uncontrolled pain Allergies/Adverse Reactions: Allergies furosemide [From Lasix] Allergy (Verified 05/10/16 08:50) Hives meperidine [From Demerol] Allergy (Verified 09/06/17 18:44) Hives Penicillins Allergy (Verified 05/10/16 08:54) Hives Medications to take at Discharge Atorvastatin Calcium [Lipitor] 40 mg PO QHS 09/05/17 Carvedilol [Coreg (Beta Yusra)] 6.25 mg PO BIDAC 09/05/17 Lisinopril [Zestril] 40 mg PO DAILY 09/05/17 Nifedipine [Nifedipine ER] 30 mg PO DAILY 09/05/17 hydrALAZINE [Apresoline] 75 mg PO Q8H 09/05/17 Albuterol Inhaler [Ventolin Hfa] 1 puff INHALATION Q4H PRN PRN inhaler 09/28/17 Amiodarone HCl [Cordarone] 200 mg PO DAILY tablet 09/28/17 Apixaban [Eliquis] 5 mg PO BID tablet 09/28/17 Budesonide Aerosol [Pulmicort Respules] 0.5 mg INHALATION Q12H.RT ampul.neb. 09/28/17 Escitalopram Oxalate [Lexapro] 10 mg PO DAILY tablet 09/28/17 Ipratropium/Albuterol Sulfate [Duoneb] 3 ml INHALATION Q4HWA.RT PRN ampul.neb 09/28/17 Primary Care Physician: Conor Aparicio MD [Primary Care Provider] - Proposed Discharge Date: 09/29/17
--- NOTE | 2017-09-28 15:14 | PCM.RU.DC ---
Rehab Discharge Summary DATE OF ADMISSION: 09/05/17 DATE OF DISCHARGE: 09/29/17 - Rehab Diagnosis CVA Discharge Diet: 2000 mg Sodium Diet Discharge Activity: May Not Drive, May Shower, May Take a Tub Bath, Use Walker Weight Bearing Status: Weight bearing as tolerated Call your doctor if you observe: Fever of 101 or Higher, Coldness, Increased Pain, Numbness or Tingling, Change in Color, Inability to urinate, Inability to have a bowel movement, Using more than one pad per hour, Shortness of breath, Dizziness, Fainting spells, Swelling in the ankles, Chest pain, Prolonged hiccoughing, Increased palpitations (irregular heartbeat), Calf discomfort, Uncontrolled pain Home Medications: Medications to take at Discharge Atorvastatin Calcium [Lipitor] 40 mg PO QHS 09/05/17 Carvedilol [Coreg (Beta Yusra)] 6.25 mg PO BIDAC 09/05/17 Lisinopril [Zestril] 40 mg PO DAILY 09/05/17 Nifedipine [Nifedipine ER] 30 mg PO DAILY 09/05/17 hydrALAZINE [Apresoline] 75 mg PO Q8H 09/05/17 Albuterol Inhaler [Ventolin Hfa] 1 puff INHALATION Q4H PRN PRN inhaler 09/28/17 Amiodarone HCl [Cordarone] 200 mg PO DAILY tablet 09/28/17 Apixaban [Eliquis] 5 mg PO BID tablet 09/28/17 Budesonide Aerosol [Pulmicort Respules] 0.5 mg INHALATION Q12H.RT ampul.neb. 09/28/17 Escitalopram Oxalate [Lexapro] 10 mg PO DAILY tablet 09/28/17 Ipratropium/Albuterol Sulfate [Duoneb] 3 ml INHALATION Q4HWA.RT PRN ampul.neb 09/28/17 Primary Care Physician: Conor Aparicio MD [Primary Care Provider] - Disposition: Snf facility Patient Condition:: Fair Rehab Course The patient is a 72 year old Female who was admitted to the rehab unit for rehabilitation after being treated at [facility] for ischemic stroke with strokes found in the left MCA and LICA. She has a pass medical history of CAD s/p CABG x 3, HTN, HLD, and stroke in 1960 2/2 AVM s/p resection and clipping, new onset Afib, Asthma, Emphysema, Prediabetes (A1C 5.8), CHF, and she was Smoking (up to this admission). She is currently on O2 which is new for her.She initially presented to [facility] ED after being found down by her daughter after she heard a fall in the patient's apartment. She was transferred to [facility] as she had a prior history of stroke, AVM, surgical clips. She was admitted to [facility] and treated medically, no TPA, no surgery. Initial CTH showed changes in the parietal motor and sensory cortex. Unable to obtain an MRI 2/2 metal piece in her brain from AVM clipping. A CT perfusion was done instead. An Echo was obtained which showed a severely dilated LV with a dyskinetic septum, severe inferior wall hypokinesis, mild anterior wall and apical hypokinesis, and EF of 36%, she has a normal RV. During her stay she was placed in the ICU and had COPD exacerbation secondary to acute influenza, heart failure with reduced ejection fraction, she also developed significant dysphagia and had a feeding tube temporarily. She has residual stroke deficits including aphasia, right-sided upper and lower extremity weakness, right-sided blurred vision, and significant dysphagia. She remains on a soft mechanical and thin liquid diet. She is unable to express much more than yes or no answers to questions. She does follow simple command occasionally. She continues to have right sided facial droop, Right sided weakness upper and lower extremity, severe aphasia and right side neglect She lives alone, is previously completely functionally independent and is admitted to the rehab unit in order to restore her previous level of functional independence. Per her daughter, at baseline she was using a wheelchair, but was able to walk short distances with a walker. She was able to dress her self, use the bathroom and feed herself. She was taking a baby Aspirin and a statin at home prior to this admission. With Physical therapy, she is a max assist of two to stand, and pivot. She is able to stand at the chair rail for about 3 to 5 mins before becoming tired. She is able to cotton gin yard supervisor the parallel bars or with the Kasandra lift for about 5mins. 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 She continues to have no movement in the right arm and leg. With Occupational therapy she is a max assist for grooming, she is able to wash her face and to do some upper body grooming, she is a total assist for her lower body care. There is some trace movement in her triceps area. She has right sided neglect, which appears to be improving. She still requires cue to look to that side. She is able to sit/balance her trunk for about 25 to 35mins. With speech therapy, her ability to recognize real objects is good she can recognize them about 60% to 75% of the time, doing better than with pictures or words and with less than three objects greater than two she is not as accurate. She is tolerating a thin liquid/ Mechanical soft diet,with out difficulty, she may use a straw now. With nursing having issues with hearing and seem to not be able to see very clearly a check of her ears shows a large build up of ear wax will order Debrox twice a day for 4 days. Family reported in vision order a Brain CT scan, which showed no changes from the previous scan. Patient is more alert, and rested. Will be discharge to [facility]. Follow up appointment will be made with the Neurologist and her PCP. Meaningful Use Info Meaningful Use Diagnoses (Choose all that apply): Ischemic CVA - CVA Therapy Assessed for PT,OT and/or ST?: Yes - Ischemic Stroke Antithrombotic order at d/c?: Yes Dx of Atrial fib/flutter?: Yes Anticoagulant at discharge?: Yes Statins at discharge?: Yes Primary Dx Acute Ischemic CVA?: Yes IV tPA ordered during stay?: No Reason IV t-PA not ordered: Medical Contraindication
--- NOTE | 2017-09-28 15:18 | DS.PCM_ITS ---
Rehab Discharge Summary DATE OF ADMISSION: 09/05/17 DATE OF DISCHARGE: 09/29/17 - Rehab Diagnosis CVA Discharge Diet: 2000 mg Sodium Diet Discharge Activity: May Not Drive, May Shower, May Take a Tub Bath, Use Walker Weight Bearing Status: Weight bearing as tolerated Call your doctor if you observe: Fever of 101 or Higher, Coldness, Increased Pain, Numbness or Tingling, Change in Color, Inability to urinate, Inability to have a bowel movement, Using more than one pad per hour, Shortness of breath, Dizziness, Fainting spells, Swelling in the ankles, Chest pain, Prolonged hiccoughing, Increased palpitations (irregular heartbeat), Calf discomfort, Uncontrolled pain Home Medications: Medications to take at Discharge Atorvastatin Calcium [Lipitor] 40 mg PO QHS 09/05/17 Carvedilol [Coreg (Beta Yusra)] 6.25 mg PO BIDAC 09/05/17 Lisinopril [Zestril] 40 mg PO DAILY 09/05/17 Nifedipine [Nifedipine ER] 30 mg PO DAILY 09/05/17 hydrALAZINE [Apresoline] 75 mg PO Q8H 09/05/17 Albuterol Inhaler [Ventolin Hfa] 1 puff INHALATION Q4H PRN PRN inhaler Amiodarone HCl [Cordarone] 200 mg PO DAILY tablet 09/28/17 Apixaban [Eliquis] 5 mg PO BID tablet 09/28/17 Budesonide Aerosol [Pulmicort Respules] 0.5 mg INHALATION Q12H.RT ampul.neb. Escitalopram Oxalate [Lexapro] 10 mg PO DAILY tablet 09/28/17 Ipratropium/Albuterol Sulfate [Duoneb] 3 ml INHALATION Q4HWA.RT PRN ampul.neb 09/28/17 Primary Care Physician: Conor Aparicio MD [Primary Care Provider] - Disposition: Senior Care facility Patient Condition:: Fair Rehab Course The patient is a 72 year old Female who was admitted to the rehab unit for rehabilitation after being treated at [facility] for ischemic stroke with strokes found in the left MCA and LICA. She has a pass medical history of CAD s/p CABG x 3, HTN, HLD, and stroke in 1960 2/2 AVM s/p resection and clipping, new onset Afib, Asthma, Emphysema, Prediabetes (A1C 5.8), CHF, and she was Smoking (up to this admission). She is currently on O2 which is new for her.She initially presented to [facility] ED after being found down by her daughter after she heard a fall in the patient's apartment. She was transferred to [facility] as she had a prior history of stroke, AVM, surgical clips. She was admitted to [facility] and treated medically, no TPA, no surgery. Initial CTH showed changes in the parietal motor and sensory cortex. Unable to obtain an MRI 2/2 metal piece in her brain from AVM clipping. A CT perfusion was done instead. An Echo was obtained which showed a severely dilated LV with a dyskinetic septum, severe inferior wall hypokinesis, mild anterior wall and apical hypokinesis, and EF of 36%, she has a normal RV. During her stay she was placed in the ICU and had COPD exacerbation secondary to acute influenza, heart failure with reduced ejection fraction, she also developed significant dysphagia and had a feeding tube temporarily. She has residual stroke deficits including aphasia, right-sided upper and lower extremity weakness, right-sided blurred vision, and significant dysphagia. She remains on a soft mechanical and thin liquid diet. She is unable to express much more than yes or no answers to questions. She does follow simple command occasionally. She continues to have right sided facial droop, Right sided weakness upper and lower extremity, severe aphasia and right side neglect She lives alone, is previously completely functionally independent and is admitted to the rehab unit in order to restore her previous level of functional independence. Per her daughter, at baseline she was using a wheelchair, but was able to walk short distances with a walker. She was able to dress her self, use the bathroom and feed herself. She was taking a baby Aspirin and a statin at home prior to this admission. With Physical therapy, she is a max assist of two to stand, and pivot. She is able to stand at the chair rail for about 3 to 5 mins before becoming tired. She is able to skein straightener the parallel bars or with the Kasandra lift for about 5mins. 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 She continues to have no movement in the right arm and leg. With Occupational therapy she is a max assist for grooming, she is able to wash her face and to do some upper body grooming, she is a total assist for her lower body care. There is some trace movement in her triceps area. She has right sided neglect, which appears to be improving. She still requires cue to look to that side. She is able to sit/balance her trunk for about 25 to 35mins. With speech therapy, her ability to recognize real objects is good she can recognize them about 60% to 75% of the time, doing better than with pictures or words and with less than three objects greater than two she is not as accurate. She is tolerating a thin liquid/ Mechanical soft diet,with out difficulty, she may use a straw now. With nursing having issues with hearing and seem to not be able to see very clearly a check of her ears shows a large build up of ear wax will order Debrox twice a day for 4 days. Family reported in vision order a Brain CT scan, which showed no changes from the previous scan. Patient is more alert, and rested. Will be discharge to [facility]. Follow up appointment will be made with the Neurologist and her PCP. Meaningful Use Info Meaningful Use Diagnoses (Choose all that apply): Ischemic CVA - CVA Therapy Assessed for PT,OT and/or ST?: Yes - Ischemic Stroke Antithrombotic order at d/c?: Yes Dx of Atrial fib/flutter?: Yes Anticoagulant at discharge?: Yes Statins at discharge?: Yes Primary Dx Acute Ischemic CVA?: Yes IV tPA ordered during stay?: No Reason IV t-PA not ordered: Medical Contraindication
[2017-09-28 19:31] VITALS: BP 115/49; PULSE 54; RESP 16; TEMP 37.2; O2SAT 91
[2017-09-28 20:30] VITALS: PULSE 54; RESP 16; O2SAT 91; BMI 30.4
[2017-09-28 20:46] VITALS: BP 115/49; PULSE 54
[2017-09-28] MEDS: Atorvastatin Calcium 40 MG Tablet PO (20:46)
[2017-09-29 05:30] VITALS: BP 151/69; PULSE 63
--- NOTE | 2017-09-29 06:00 | NURSING ---
Reviewed LPNs fims and handoff
[2017-09-29 08:05] VITALS: BP 136/57; PULSE 56; RESP 17; TEMP 36.7; O2SAT 94
[2017-09-29] MEDS: Senna/Docusate Sodium 1 Tablet 2 TABLET PO (08:49)
[2017-09-29] MEDS: APIXABAN 5 MG TABLET PO (08:49)
[2017-09-29] MEDS: Escitalopram Oxalate 10 MG Tablet PO (08:49)
[2017-09-29] MEDS: NIFEdipine 30 MG Tablet PO (08:49)
[2017-09-29] MEDS: Lisinopril 40 MG Tablet PO (08:49)
[2017-09-29] MEDS: Amiodarone 200 MG Tablet PO (08:49)
[2017-09-29] MEDS: Carvedilol 6.25 MG Tablet PO (08:50)
[2017-09-29] MEDS: Ciprofloxacin 500 MG Tablet PO (08:50)
[2017-09-29] MEDS: Menthol/Lanolin/Calamine/Znox 113 GM Tube 1 APPLIC TOPICAL (08:53)
--- NOTE | 2017-09-29 09:57 | NURSING ---
Called gave report to Susu at [facility].
[2017-09-29 09:58] VITALS: BP 136/57; PULSE 56; RESP 17; TEMP 36.6; O2SAT 94
== END 2017-09-29 11:51 | disposition skilled nursing facility (03) | DRG 57 ==
PROVIDERS: Internal Medicine; Nurse Practitioner Acute Care; Psychiatry & Neurology Neurology; Admitting Provider Psychiatry & Neurology Neurology; Family Provider Family Medicine; PCP Family Medicine; Visit Provider Hospitalist
DX: I69.351 Hemiplegia and hemiparesis following cerebral infarction affecting right dominant side (principal); I48.0 Paroxysmal atrial fibrillation; I11.0 Hypertensive heart disease with heart failure; I50.22 Chronic systolic (congestive) heart failure; R13.10 Dysphagia, unspecified; N30.00 Acute cystitis without hematuria; J44.9 Chronic obstructive pulmonary disease, unspecified; I69.320 Aphasia following cerebral infarction; I69.391 Dysphagia following cerebral infarction; I69.398 Other sequelae of cerebral infarction; H53.8 Other visual disturbances; E78.5 Hyperlipidemia, unspecified; I25.10 Atherosclerotic heart disease of native coronary artery without angina pectoris; K74.60 Unspecified cirrhosis of liver; R91.1 Solitary pulmonary nodule; R32 Unspecified urinary incontinence; Z66 Do not resuscitate; F17.200 Nicotine dependence, unspecified, uncomplicated; Z79.899 Other long term (current) drug therapy; Z79.82 Long term (current) use of aspirin; Z79.51 Long term (current) use of inhaled steroids; B96.20 Unspecified Escherichia coli [E. coli] as the cause of diseases classified elsewhere; R73.03 Prediabetes; F32.9 Major depressive disorder, single episode, unspecified
CPT/HCPCS: 36415; 70450; 71045; 80048; 80053; 81001; 82728; 83550; 83735; 84100; 84439; 84443; 85027; 87086; 87088; 87186; 92507; 92523; 92526; 93005; 94640; 97110; 97112; 97116; 97140; 97163; 97166; 97530; 97535; 97802

== ENCOUNTER → 2017-12-04 09:36 | Outpatient (CLI) | payer MEDICARE, MEDICAID, SELFPAY ==
--- NOTE | 2017-12-04 09:43 | RAD_ITS ---
STUDY: X-RAY - RIGHT SHOULDER REASON FOR EXAM: Pain, question recent fall. TECHNIQUE: 3 view(s) of the shoulder. COMPARISON: None. FINDINGS: Normal glenohumeral articulation. Normal acromioclavicular joint. Normal acromion. Normal humeral head and visualized proximal humerus. The soft tissue structures are unremarkable. Normal visualized pulmonary apex. RAD/Shoulder min 2 Views IMPRESSION: Unremarkable x-ray examination of the right shoulder without demonstrated fracture. Electronically Signed: Ephraim Sanchez MD at 10:28 EDT Tel , Service support ,
== END ==
PROVIDERS: Family Provider Family Medicine; PCP Family Medicine; Visit Provider Orthopaedic Surgery
DX: M25.511 Pain in right shoulder (principal)
CPT/HCPCS: 73030

== ENCOUNTER → 2017-12-10 06:15 | Outpatient (REF) | payer MEDICARE, MEDICAID, SELFPAY ==
[2017-12-13 16:26] LABS: White Blood Count 7.8 K/mm3 (4.4-11.0)
[2017-12-13 16:27] LABS: Hematocrit 33.2 % (37-47); Hemoglobin 9.7 g/dl (12.0-15.0); Mean Corp Hgb Conc 29.2 g/gl (32-36); Mean Corpuscular Hgb 27.8 pg (27.0-32.0); Mean Corpuscular Volume 95.1 fL (81-99); Mean Platelet Vol. 10.9 fl (6.2-12.0); Platelet Count 250 K/mm3 (150-450); RBC Distribution Width CV 16.8 % (11.6-14.6); RBC Distribution Width SD 55.7 fl (35.1-43.9); Scan Indicated on CBC? Y/N YES- FLAGS NOTED
[2017-12-13 16:28] LABS: Differential Comment SCANNED
[2017-12-13 16:29] LABS: Anion Gap 8 (5-15); BUN 17 mg/dL (7-18); BUN/Creat Ratio 23.9 RATIO (10-20); Calcium,Total 8.8 mg/dL (8.5-10.1); Chloride 107 mmol/L (98-107); Cholesterol 86 mg/dL (200); Creatinine, Serum 0.71 mg/dL (0.55-1.02); EST Glomerular Filtration Rate 86 mL/min (>60); Est Glom Filt Rate - Afr Amer 104 mL/min (>60); Glucose 88 mg/dL (74-106); High Density Lipoprotein 29 mg/dL; Potassium 4.1 mmol/L (3.5-5.1); Sodium Level 144 mmol/L (136-145); Triglycerides 88 mg/dL; Very Low Density Lipoprotein 18 mg/dL (5-40)
== END ==
LOC: OLS.WHLEAS 06:15
PROVIDERS: Visit Provider Family Medicine
DX: I48.91 Unspecified atrial fibrillation (principal); I50.9 Heart failure, unspecified; E78.5 Hyperlipidemia, unspecified
CPT/HCPCS: 36415; 80048; 80061; 85027

== ENCOUNTER → 2017-12-19 09:26 | Outpatient (CLI) | payer MEDICARE, MEDICAID, SELFPAY ==
--- NOTE | 2017-12-19 09:29 | CT_ITS ---
STUDY: CT RIGHT SHOULDER REASON FOR EXAM: Female, 72 years old. Right shoulder pain. Instability. RADIATION DOSAGE (If Supplied By Facility): CTDIvol = ( 26.71 ) mGy, DLP = ( 509.01 ) mGycm TECHNIQUE: The patient was scanned in a multi detector CT scanner. High resolution transaxial imaging was performed with administration of intra-articular contrast material. Sagittal and coronal images were reconstructed. Individualized dose optimization techniques were used for this CT. COMPARISON: None. FINDINGS: There is moderate osteoarthritis, with moderate articular joint space narrowing and moderate osteoarthritic spurring. Normal glenoid rim, neck and visualized scapula. Normal humeral head, neck and tuberosities. There is normal opacification of the joint capsule. There is partial-thickness interstitial tear of the anterior aspect of supraspinous tendon measures approximately 10 mm in diameter involving 10% of the tendon thickness, minimal amount of contrast seen within the tear. The infraspinatus tendon, the teres minor tendon, the tendon of the subscapularis tendon of long head biceps are unremarkable. There are 2 loose bodies in the subcoracoid bursa measuring approximately 1 cm in diameter each. Normal coracoid process. Normal visualized lateral clavicle. Normal acromioclavicular articulation. There is a Type II morphology (curved), with a neutral orientation. Normal visualized muscles and soft tissue structures. CT/Extremity Upper WITH Contrast IMPRESSION: There is partial-thickness interstitial tear of the anterior aspect of supraspinous tendon measures approximately 10 mm in diameter involving 10% of the tendon thickness, minimal amount of contrast seen within the tear. There are 2 loose bodies in the subcoracoid bursa measuring approximately 1 cm in diameter each. Degenerative arthrosis in the glenohumeral joint and acromial clavicular joint. Electronically Signed: Gayla Reese MD at 16:24 EDT Tel , Service support ,
--- NOTE | 2017-12-19 09:32 | RAD_ITS ---
PROCEDURE: ARTHROGRAM - RIGHT SHOULDER REASON FOR EXAM: Female, 72 years old. Shoulder pain FLUOROSCOPY TIME (if supplied): (0:21) minutes/seconds RADIATION DOSAGE (If Supplied By Facility): CTDIvol = ( ) mGy, DLP = ( ) mGycm STERILE BARRIER TECHNIQUE: The following sterile barrier precautions were used during the procedure: hand hygiene; use of 2% chlorhexidine aseptic; use of a cap, mask, sterile gown, sterile gloves, sterile full body drape, and a large sterile sheet. PROCEDURE/TECHNIQUE: The risks, benefits, and alternatives to the procedure were explained to patient, and the patient agreed to the procedure and signed a consent form for the procedure. A timeout was performed to confirm the patient's identity, the type of procedure, to be performed and the site of entry. Injection Information: Mixture containing 0.2 mL of Omniscan, 10 mL of Omnipaque 300 and 10 mL of normal saline. Number of images obtained: 5 TECHNIQUE: Under fluoroscopic guidance using sterile technique and after infiltration of the skin and subcutaneous soft tissues with 10 mL of lidocaine 1% a 22-gauge needle is introduced in the shoulder joint. 10 ml of the above mentioned mixture were injected in the shoulder joint. FINDINGS: The joint capsule is normal in size. There is no abnormal opacification of the subdeltoid bursa to suggest a full-thickness rotator cuff tear. There is irregular filling defect in the subcoracoid bursa suggesting loose bodies. RAD/Arthrogram Shoulder IMPRESSION: Intra-articular loose bodies. Electronically Signed: Gayla Reese MD at 15:15 EDT Tel , Service support ,
== END ==
PROVIDERS: Family Provider Family Medicine; PCP Family Medicine; Visit Provider Orthopaedic Surgery
DX: M25.311 Other instability, right shoulder (principal)
CPT/HCPCS: 23350; 73040; 73201; A9577; Q9967

== ENCOUNTER → 2018-01-14 05:00 | Outpatient (REF) | payer MEDICARE, MEDICAID, SELFPAY ==
[2018-01-14 09:43] LABS: Absolute Lymphocyte Count 1.23 X10^3/ul (0.83-4.51); Absolute Neutrophil Count 6.5 X10^3/uL (2.0-7.7); Basophil# 0.01 X10^3/uL; Basophil% 0.1 % (0-1); Eosinophils% 1.2 % (0-5); Hematocrit 33.3 % (37-47); Lymphocyte # 1.23 X10^3/ul (4.0); Lymphocyte % 14.2 % (19-41); Mean Corpuscular Hgb 28.2 pg (27.0-32.0); Mean Corpuscular Volume 93.8 fL (81-99); Mean Platelet Vol. 11.7 fl (6.2-12.0); Monocyte# 0.76 X10^3/uL; Monocyte% 8.8 % (0-10); Neutrophil # 6.54 X10^3/uL (2.7-7.7); Neutrophil % 75.5 % (47-70); Platelet Count 170 K/mm3 (150-450); RBC Distribution Width CV 15.3 % (11.6-14.6); RBC Distribution Width SD 50.5 fl (35.1-43.9); Red Blood Count 3.55 M/mm3 (4.2-5.4); White Blood Count 8.7 K/mm3 (4.4-11.0)
[2018-01-14 09:47] LABS: POSITIVE COUNT NO; POSITIVE DIFFERENTIAL NO; POSITIVE MORPHOLOGY NO
[2018-01-14 09:57] LABS: AST(SGOT) 64 U/L (15-37); Anion Gap 8 (5-15); BUN 15 mg/dL (7-18); BUN/Creat Ratio 21.2 RATIO (10-20); Calcium,Total 8.7 mg/dL (8.5-10.1); Chloride 105 mmol/L (98-107); Creatinine, Serum 0.71 mg/dL (0.55-1.02); EST Glomerular Filtration Rate 86 mL/min (>60); Est Glom Filt Rate - Afr Amer 104 mL/min (>60); Glucose 92 mg/dL (74-106); Potassium 3.8 mmol/L (3.5-5.1); Sodium Level 142 mmol/L (136-145)
== END ==
LOC: OLS.WHLEAS 05:00
PROVIDERS: Visit Provider Family Medicine
DX: I48.91 Unspecified atrial fibrillation (principal); I10 Essential (primary) hypertension; E78.5 Hyperlipidemia, unspecified; J44.9 Chronic obstructive pulmonary disease, unspecified
CPT/HCPCS: 36415; 80048; 84450; 85025

== ENCOUNTER → 2018-02-06 06:50 | Outpatient (REF) | payer MEDICARE, MEDICAID, SELFPAY ==
[2018-02-06 09:07] LABS: Hemoglobin 11.2 g/dl (12.0-15.0); Mean Corp Hgb Conc 29.5 g/gl (32-36); Mean Corpuscular Hgb 27.5 pg (27.0-32.0); Mean Corpuscular Volume 93.1 fL (81-99); Mean Platelet Vol. 10.3 fl (6.2-12.0); Platelet Count 245 K/mm3 (150-450); RBC Distribution Width CV 15.4 % (11.6-14.6); RBC Distribution Width SD 52.4 fl (35.1-43.9); Red Blood Count 4.08 M/mm3 (4.2-5.4); White Blood Count 6.8 K/mm3 (4.4-11.0)
[2018-02-06 09:19] LABS: Scan Indicated on CBC? Y/N NO
[2018-02-06 09:40] LABS: Anion Gap 6 (5-15); BUN 22 mg/dL (7-18); Calcium,Total 8.9 mg/dL (8.5-10.1); Chloride 106 mmol/L (98-107); Creatinine, Serum 0.88 mg/dL (0.55-1.02); EST Glomerular Filtration Rate 67 mL/min (>60); Est Glom Filt Rate - Afr Amer 81 mL/min (>60); Glucose 88 mg/dL (74-106); Potassium 4.3 mmol/L (3.5-5.1); Sodium Level 141 mmol/L (136-145)
== END ==
LOC: OLS.WHLEAS 06:50
PROVIDERS: Visit Provider Family Medicine
DX: I10 Essential (primary) hypertension (principal); E78.5 Hyperlipidemia, unspecified
CPT/HCPCS: 36415; 80048; 85027

== ENCOUNTER → 2018-03-13 05:00 | Outpatient (REF) | payer MEDICARE, MEDICAID, SELFPAY ==
[2018-03-13 07:45] LABS: Hematocrit 33.2 % (37-47); Hemoglobin 10.1 g/dl (12.0-15.0); Mean Corp Hgb Conc 30.4 g/gl (32-36); Mean Corpuscular Hgb 28.9 pg (27.0-32.0); Mean Corpuscular Volume 95.1 fL (81-99); Mean Platelet Vol. 11.5 fl (6.2-12.0); Platelet Count 145 K/mm3 (150-450); RBC Distribution Width CV 16.3 % (11.6-14.6); RBC Distribution Width SD 54.6 fl (35.1-43.9); Red Blood Count 3.49 M/mm3 (4.2-5.4); White Blood Count 5.2 K/mm3 (4.4-11.0)
[2018-03-13 07:46] LABS: Anion Gap 9 (5-15); BUN 18 mg/dL (7-18); BUN/Creat Ratio 21.6 RATIO (10-20); Calcium,Total 8.7 mg/dL (8.5-10.1); Chloride 109 mmol/L (98-107); Creatinine, Serum 0.83 mg/dL (0.55-1.02); EST Glomerular Filtration Rate 71 mL/min (>60); Est Glom Filt Rate - Afr Amer 86 mL/min (>60); Glucose 88 mg/dL (74-106); Potassium 3.9 mmol/L (3.5-5.1); Sodium Level 147 mmol/L (136-145)
[2018-03-13 07:47] LABS: Scan Indicated on CBC? Y/N NO
== END ==
LOC: OLS.WHLEAS 05:00
PROVIDERS: Visit Provider Family Medicine
DX: I10 Essential (primary) hypertension (principal)
CPT/HCPCS: 36415; 80048; 85027

== ENCOUNTER → 2018-04-10 05:00 | Outpatient (REF) | payer MEDICARE, MEDICAID, SELFPAY ==
[2018-04-10 07:29] LABS: Hematocrit 37.3 % (37-47); Hemoglobin 11.3 g/dl (12.0-15.0); Mean Corp Hgb Conc 30.3 g/gl (32-36); Mean Corpuscular Hgb 28.8 pg (27.0-32.0); Mean Corpuscular Volume 94.9 fL (81-99); Mean Platelet Vol. 11.4 fl (6.2-12.0); Platelet Count 171 K/mm3 (150-450); RBC Distribution Width CV 15.6 % (11.6-14.6); RBC Distribution Width SD 52.5 fl (35.1-43.9); Red Blood Count 3.93 M/mm3 (4.2-5.4); White Blood Count 5.4 K/mm3 (4.4-11.0)
[2018-04-10 07:30] LABS: Scan Indicated on CBC? Y/N NO
[2018-04-10 07:47] LABS: Anion Gap 8 (5-15); BUN 18 mg/dL (7-18); Calcium,Total 9.1 mg/dL (8.5-10.1); Chloride 109 mmol/L (98-107); Cholesterol 105 mg/dL (200); Creatinine, Serum 0.78 mg/dL (0.55-1.02); EST Glomerular Filtration Rate 77 mL/min (>60); Est Glom Filt Rate - Afr Amer 93 mL/min (>60); Glucose 80 mg/dL (74-106); High Density Lipoprotein 27 mg/dL; Sodium Level 146 mmol/L (136-145); Triglycerides 125 mg/dL; Very Low Density Lipoprotein 25 mg/dL (5-40)
== END ==
LOC: OLS.WHLEAS 05:00
PROVIDERS: Visit Provider Family Medicine
DX: I10 Essential (primary) hypertension (principal); E78.5 Hyperlipidemia, unspecified; J44.9 Chronic obstructive pulmonary disease, unspecified
CPT/HCPCS: 36415; 80048; 80061; 85027

== ENCOUNTER → 2018-05-14 05:00 | Outpatient (REF) | payer MEDICARE, MEDICAID, SELFPAY ==
[2018-05-14 08:48] LABS: Hematocrit 35.4 % (37-47); Hemoglobin 10.6 g/dl (12.0-15.0); Mean Corp Hgb Conc 29.9 g/gl (32-36); Mean Platelet Vol. 11.6 fl (6.2-12.0); Platelet Count 158 K/mm3 (150-450); RBC Distribution Width CV 14.6 % (11.6-14.6); RBC Distribution Width SD 49.3 fl (35.1-43.9); Red Blood Count 3.65 M/mm3 (4.2-5.4); White Blood Count 5.2 K/mm3 (4.4-11.0)
[2018-05-14 08:51] LABS: Scan Indicated on CBC? Y/N NO
[2018-05-14 09:15] LABS: Anion Gap 8 (5-15); BUN 18 mg/dL (7-18); BUN/Creat Ratio 21.6 RATIO (10-20); Calcium,Total 8.8 mg/dL (8.5-10.1); Chloride 109 mmol/L (98-107); Creatinine, Serum 0.83 mg/dL (0.55-1.02); EST Glomerular Filtration Rate 71 mL/min (>60); Est Glom Filt Rate - Afr Amer 86 mL/min (>60); Glucose 77 mg/dL (74-106); Potassium 3.8 mmol/L (3.5-5.1); Sodium Level 145 mmol/L (136-145)
== END ==
LOC: OLS.WHLEAS 05:00
PROVIDERS: Visit Provider Family Medicine
DX: I48.91 Unspecified atrial fibrillation (principal); I50.9 Heart failure, unspecified; I10 Essential (primary) hypertension; E78.5 Hyperlipidemia, unspecified
CPT/HCPCS: 36415; 80048; 85027